=== PATIENT | female | born 1975 | race Caucasian/White ===

== ENCOUNTER 2017-12-18 20:25 | Emergency (ER) | payer MEDICARE, MEDICAID, SELFPAY ==
[2017-12-18 20:28] VITALS: BP 130/94; PULSE 104; RESP 18; TEMP 37.2; O2SAT 100; BMI 41.6
--- NOTE | 2017-12-18 20:33 | ED_ITS ---
HPI - Recheck/Abnormal Lab/Rx <Jailene William PA-C - Last Filed: 12/18/17 22:03> General Chief Complaint: Recheck/Abnormal Lab/Rx Stated Complaint: OUT OF MEDICATION Time Seen by Provider: 12/18/17 20:33 Source: patient Mode of arrival: ambulatory Limitations: no limitations History of Present Illness HPI narrative: This 42-year-old female is currently being treated for bipolar/ schizoaffective disorder by Psychiatry. She states that she was not able to get her last refills of lamotrigine due to her insurance saying it was too early are not covering. She states that she is due for a dose tonight and is out. Very concerned because she missed a dose of a different anticonvulsant type mood stabilizer previously and had a seizure. She is not out of any other medications. She states that she is feeling a little bit anxious about this but otherwise denies any acute symptoms this evening. She denies any changes in her medical history since last seen Related Data Previous Rx's Medication Instructions Recorded lorazepam [Ativan] 0.5 mg PO SEE INSTRUCTIONS #90 tab 09/03/17 ziprasidone HCl [Geodon] 20 mg PO HS #30 cap 10/19/17 ziprasidone HCl [Geodon] 60 mg PO QAM #30 tab 11/05/17 ziprasidone HCl [Geodon] 80 mg PO HS #30 cap 11/05/17 lamotrigine [Lamictal] 350 mg PO QDAY #105 tab 11/09/17 venlafaxine [Effexor XR] 75 mg PO QDAY #30 cap 11/09/17 venlafaxine [Effexor XR] 300 mg PO QDAY #60 cap 11/09/17 lorazepam [Ativan] 0.5 mg PO QID #120 tab 11/10/17 fluconazole 150 mg tablet 150 mg PO .ONCE 1 Days #1 tab 11/29/17 lamotrigine 350 mg PO DAILY #18 tab 12/18/17 Allergies Allergy/AdvReac Type Severity Reaction Status Date / Time codeine Allergy Intermediate HIVES Verified 12/18/17 20:33 penicillin G Allergy Intermediate NAUSEA Verified 12/18/17 20:33 rifampin [RIFAMPIN] Allergy Unknown Verified 12/18/17 20:33 Sulfa (Sulfonamide Allergy Unknown Verified 12/18/17 20:33 Antibiotics) [SULFA (SULFONAMIDE ANTIBIOTICS)] Opioids - Morphine Analogues AdvReac Intermediate CAN'T SLEEP Verified 12/18/17 20:33 Review of Systems <Jailene William PA-C - Last Filed: 12/18/17 22:03> Review of Systems All systems reviewed & are unremarkable except as noted in HPI and below Exam <Jailene William PA-C - Last Filed: 12/18/17 22:03> Narrative Exam Narrative: GENERAL APPEARANCE: Patient sitting comfortably, in no distress. LUNGS: Clear to auscultation bilaterally. HEART: Rate and rhythm regular without murmur, normal S1 and S2, no S3 or S4. Initial Vital Signs Initial Vital Signs: Vital Signs Temperature 99.0 F 12/18/17 20:28 Pulse Rate 104 H 12/18/17 20:28 Respiratory Rate 18 12/18/17 20:28 Blood Pressure 130/94 H 12/18/17 20:28 Pulse Oximetry 100 12/18/17 20:28 <DO Cuco Ruvalcaba Last Filed: 12/19/17 05:02> Initial Vital Signs Initial Vital Signs: Vital Signs Temperature 99.0 F 12/18/17 20:28 Pulse Rate 104 H 12/18/17 20:28 Respiratory Rate 18 12/18/17 20:28 Blood Pressure 130/94 H 12/18/17 20:28 Pulse Oximetry 100 12/18/17 20:28 Course <AZUL Tan Last Filed: 12/18/17 22:03> Orders Ordered: Discontinued Medications Lamotrigine (Lamictal) 350 mg PO NOW ONE Stop: 12/18/17 20:57 Last Admin: 12/18/17 21:10 Dose: 350 mg Vital Signs - 8 hr 12/18/17 21:26 Temperature 98.9 F Pulse Rate 90 Respiratory Rate 16 Blood Pressure 123/93 H Pulse Oximetry 99 <DO Cuco Ruvalcaba Last Filed: 12/19/17 05:02> Orders Ordered: Discontinued Medications Lamotrigine (Lamictal) 350 mg PO NOW ONE Stop: 12/18/17 20:57 Last Admin: 12/18/17 21:10 Dose: 350 mg Vital Signs - 8 hr 12/18/17 21:26 Temperature 98.9 F Pulse Rate 90 Respiratory Rate 16 Blood Pressure 123/93 H Pulse Oximetry 99 Discharge Plan Departure Patient Disposition: Home, Self-Care Clinical Impression: Medication management, Bipolar 1 disorder Discharge Date/Time: 12/18/17 21:27 Interventions: ED Discharge Assessment Last Done: 12/18/17 21:26 Activity Restrictions/Additional Instructions: I have sent in a 5 day supply of your lamotrigine to [facility] for you to last picker tomorrow. You may want to contact Dr. Thurston's office and talk to the adult basic education manager provider about whether you should get a 1 month supply instead. Prescriptions: New lamotrigine 100 mg tablet 350 mg PO DAILY Qty: 18 RF: 0 No Action lorazepam [Ativan] 0.5 MG tablet 0.5 mg PO SEE INSTRUCTIONS Qty: 90 RF: 1 ziprasidone HCl [Geodon] 20 MG capsule 20 mg PO HS Qty: 30 RF: 2 ziprasidone HCl [Geodon] 80 MG capsule 80 mg PO HS Qty: 30 RF: 1 ziprasidone HCl [Geodon] 60 MG capsule 60 mg PO QAM Qty: 30 RF: 5 venlafaxine [Effexor XR] 75 MG capsule,extended release 24hr 75 mg PO QDAY Qty: 30 RF: 5 venlafaxine [Effexor XR] 150 MG capsule,extended release 24hr 300 mg PO QDAY Qty: 60 RF: 5 lamotrigine [Lamictal] 100 MG tablet 350 mg PO QDAY Qty: 105 RF: 5 lorazepam [Ativan] 0.5 MG tablet 0.5 mg PO QID Qty: 120 RF: 0 fluconazole [Diflucan] 150 mg tablet 150 mg PO .ONCE 1 Days Qty: 1 RF: 0 Referrals: Elizabeth Jones MD [Primary Care Provider] - Ayo Thurston DO [Physician] - <Kyle Garcia DO - Last Filed: 12/19/17 05:02> Cosign ED Attending Cosignature Attestation: I was immediately available in the department for consultation. Documentation has been reviewed. I agree with assessment and plan.
--- NOTE | 2017-12-18 21:04 | PC.NURSE ---
Patient here because he ran out of his lamictal, has had a hx of one siezure.
[2017-12-18] MEDS: lamoTRIgine 100 MG TABLET 350 MG PO (21:10)
[2017-12-18 21:26] VITALS: BP 123/93; PULSE 90; RESP 16; TEMP 37.2; O2SAT 99
== END 2017-12-18 21:27 | disposition home or self-care (01) ==
PROVIDERS: Emergency Provider Internal Medicine; PCP Family Medicine
DX: F31.9 Bipolar disorder, unspecified (principal); Z79.899 Other long term (current) drug therapy
CPT/HCPCS: 99282; 99283

== ENCOUNTER → 2018-03-02 06:43 | Outpatient (CLI) | payer MEDICARE, MEDICAID, SELFPAY ==
[2018-03-02 09:52] LABS: Add Manual Diff / Slide Review NO; Basophils Percent Auto 0.4 % (0-2); Eosinophils Percent Auto 1.9 % (2-4); Hematocrit 41.6 % (36-46); Hemoglobin 13.9 g/dL (12.0-16.0); Lymphocytes Percent Auto 30.3 % (25-40); Mean Corpuscular HGB Conc 33.5 % (30-36); Mean Corpuscular Hemoglobin 29.1 PG (26-34); Mean Corpuscular Volume 86.9 fL (80-100); Monocytes Percent Auto 6.1 % (3-14); Neutrophils Absolute Auto 5800 /uL (3000-5900); Neutrophils Percent Auto 61.3 % (50-75); Platelet Count 399 X10^3/uL (150-400); Red Blood Cell Count 4.79 X10^6/uL (4.0-5.2); Red Cell Distribution Width 14.4 % (11.6-14.8); White Blood Cell Count 9.5 X10^3/uL (4.5-11.0)
[2018-03-02 10:11] LABS: Cholesterol 192 mg/dL (140-199); Glucose 99 mg/dL (70-100); HDL Cholesterol 47 mg/dL (40-60); LDL Cholesterol Calculated 120 mg/dL (<100); Triglycerides 126 mg/dL (35-150)
[2018-03-02 10:39] LABS: Thyroid Stimulating Hormone 2.55 uIU/mL (0.47-4.68)
== END ==
PROVIDERS: PCP Family Medicine; Visit Provider Family Medicine
DX: R53.83 Other fatigue (principal); Z88.9 Allergy status to unspecified drugs, medicaments and biological substances
CPT/HCPCS: 36415; 80061; 82947; 84443; 85025

== ENCOUNTER → 2018-03-23 12:12 | Outpatient (CLI) | payer MEDICARE, MEDICAID, SELFPAY ==
[2018-03-23 13:40] LABS: Prolactin 14.4 ng/mL (3.0-18.6)
[2018-03-25 22:56] LABS: Estrogen 194.9 pg/mL
== END ==
PROVIDERS: PCP Family Medicine; Visit Provider Family Medicine
DX: N89.8 Other specified noninflammatory disorders of vagina (principal)
CPT/HCPCS: 36415; 82672; 83001; 84146

== ENCOUNTER → 2018-03-25 11:15 | Outpatient (CLI) | payer MEDICARE, MEDICAID, SELFPAY ==
--- NOTE | 2018-03-25 11:17 | DI.RAD.S_ITS ---
PROCEDURE: XR FOOT RT MIN 3V INDICATIONS: heel pain of right foot TECHNIQUE: 3 views of the foot were acquired. COMPARISON: None. FINDINGS: Bones: No fractures or dislocations. No suspicious bony lesions. Soft tissues: No tibiotalar joint effusion. Achilles tendon appears normal. IMPRESSION: Normal for age, source of current symptoms is not seen. Dictated by: Sascha Gonzalez M.D. on 03/25/2018 at 13:16 Approved by: Sascha Gonzalez M.D. on 03/25/2018 at 13:17
== END ==
PROVIDERS: PCP Family Medicine; Visit Provider Nurse Practitioner Family
DX: M79.671 Pain in right foot (principal)
CPT/HCPCS: 73630

== ENCOUNTER → 2018-04-02 09:44 | Outpatient (CLI) | payer MEDICARE, MEDICAID, SELFPAY ==
--- NOTE | 2018-04-02 | DI.MG.S_ITS ---
BILATERAL DIGITAL SCREENING MAMMOGRAM 3D/2D WITH CAD: 04/02/2018 CLINICAL: Routine screening. Family history of breast cancer. Comparison is made to exams dated: 02/10/2017 mammogram, 12/19/2014 mammogram, and 12/13/2014 mammogram - [facility]. The tissue of both breasts is heterogeneously dense. This may lower the sensitivity of mammography. Current study was also evaluated with a Computer Aided Detection (CAD) system. There is a mass in the right breast at 1 o'clock middle depth. Finding is seen only on tomography. No other significant masses, calcifications, or other findings are seen in either breast. IMPRESSION: INCOMPLETE: NEEDS ADDITIONAL IMAGING EVALUATION The mass in the right breast is indeterminate. Additional views with possible ultrasound are recommended. This exam was interpreted at Station ID: [id number]. NOTE: For mammograms, a report in lay terms will be sent to the patient. Approximately 15% of breast malignancies will not be visualized mammographically. In the management of a palpable breast mass, a negative mammogram must not discourage biopsy of a clinically suspicious lesion. Electronically Signed By: Shi hawkins/lidia:04/04/2018 08:40:54 letter sent: Additional Imaging Needed ACR BI-RADS Category 0: Incomplete 3340F
== END ==
PROVIDERS: PCP Family Medicine; Visit Provider Family Medicine
DX: Z12.31 Encounter for screening mammogram for malignant neoplasm of breast (principal); Z80.3 Family history of malignant neoplasm of breast
CPT/HCPCS: 77063; 77067

== ENCOUNTER → 2018-04-25 09:28 | Outpatient (CLI) | payer MEDICARE, MEDICAID, SELFPAY ==
--- NOTE | 2018-04-25 09:30 | DI.MG.S_ITS ---
UNILATERAL RIGHT DIGITAL DIAGNOSTIC MAMMOGRAM 3D/2D WITH ADDITIONAL VIEWS: 04/25/2018 CLINICAL: Additional evaluation requested from prior study. Comparison is made to exams dated: 04/02/2018 mammogram - [facility], 02/18/2017 mammogram, and 02/10/2017 mammogram - [facility]. The tissue of right breast is heterogeneously dense. This may lower the sensitivity of mammography. There is a mass in the right breast at 1 o'clock middle depth. Finding is seen only on tomography. This is seen in additional views. No other significant masses or calcifications are seen in the breast. IMPRESSION: INCOMPLETE: NEEDS ADDITIONAL IMAGING EVALUATION The mass in the right breast is indeterminate. An ultrasound is recommended. This exam was interpreted at Station ID: [id number]. NOTE: For mammograms, a report in lay terms will be sent to the patient. Approximately 15% of breast malignancies will not be visualized mammographically. In the management of a palpable breast mass, a negative mammogram must not discourage biopsy of a clinically suspicious lesion. Electronically Signed By: Shi hawkins/lidia:04/25/2018 09:53:22 letter sent: Additional Imaging Needed ACR BI-RADS Category 0: Incomplete 3340F
--- NOTE | 2018-04-25 09:30 | DI.US.S_ITS ---
ULTRASOUND OF RIGHT BREAST: 04/25/2018 CLINICAL: Follow up from addtional views. Comparison is made to exams dated: 04/25/2018 mammogram, 04/02/2018 mammogram - [facility], and 02/18/2017 ultrasound - [facility]. Color flow ultrasound of the right breast was performed on the areas of interest. Melton scale images of the real-time examination were reviewed. There is a 0.5 cm x 0.3 cm x 0.4 cm reniform mass in the right breast at 1 o'clock middle depth. This mass is hypoechoic. This correlates with mammography findings. IMPRESSION: BENIGN There is no sonographic evidence of malignancy. The 0.5 cm x 0.3 cm x 0.4 cm reniform mass in the right breast most likely is a lymph node and is benign. A 1 year screening mammogram is recommended.(04/26/2019) This exam was interpreted at Station ID: [id number]. Electronically Signed By: Shi Malcolm M.D. lk/:04/25/2018 11:58:26 letter sent: Normal Exam Ultrasound BI-RADS: 2 Benign
== END ==
PROVIDERS: PCP Family Medicine; Visit Provider Family Medicine
DX: R92.8 Other abnormal and inconclusive findings on diagnostic imaging of breast (principal); N63.12 Unspecified lump in the right breast, upper inner quadrant
CPT/HCPCS: 76642; 77065; G0279

== ENCOUNTER → 2018-05-27 12:46 | Outpatient (CLI) | payer MEDICARE, MEDICAID, SELFPAY ==
[2018-05-31 15:30] LABS: Fecal Immunochemical Test NOT DETECTED
== END ==
PROVIDERS: PCP Family Medicine; Visit Provider Family Medicine
DX: K92.1 Melena (principal)
CPT/HCPCS: 82274

== ENCOUNTER → 2018-07-12 10:59 | Outpatient (CLI) | payer MEDICARE, MEDICAID, SELFPAY ==
[2018-07-12 11:14] LABS: Appearance Urine UA CLEAR; Bilirubin Urine UA NEGATIVE (NEGATIVE); Color Urine UA YELLOW; Glucose Urine UA NEGATIVE (Normal); Ketones Urine UA NEGATIVE (NEGATIVE); Leukocyte Esterase Urine UA TRACE (NEGATIVE); Nitrite Urine UA NEGATIVE (Negative); Occult Blood Urine UA 2+ (Negative); Protein Urine UA NEGATIVE (Negative); Specific Gravity Urine UA 1.025 (1.000-1.035); Urobilinogen Urine UA 0.2 E.U./dL (0.2)
[2018-07-12 12:00] LABS: Bacteria Urine Few (2-10); Culture Indicated Urine Cult Not Indicated; RBC Urine 1-5/HPF (0-5/HPF); Squamous Epithelial Cell Urine 5-10 /HPF; WBC Urine 5-10/HPF (0-5/HPF)
== END ==
PROVIDERS: PCP Family Medicine; Visit Provider Family Medicine
DX: R30.0 Dysuria (principal)
CPT/HCPCS: 81001

== ENCOUNTER 2018-07-12 14:15 | Emergency (ER) | payer MEDICARE, MEDICAID, SELFPAY ==
[2018-07-12 14:22] VITALS: BP 141/100; PULSE 93; RESP 17; TEMP 36.7; O2SAT 100; BMI 40.7
[2018-07-12 16:04] VITALS: BP 139/95; PULSE 86; RESP 14; O2SAT 100
--- NOTE | 2018-07-12 16:49 | ED_ITS ---
HPI - Back Pain/Injury General Chief Complaint: Back Pain/Injury Stated Complaint: UTI BACK PAIN AND ABD PAIN Time Seen by Provider: 07/12/18 16:11 Source: patient Mode of arrival: ambulatory Limitations: no limitations History of Present Illness HPI Narrative: Patient is a 43-year-old female with history of bipolar presenting with back pain. She has actually seen evaluated by PCP today diagnosed with UTI. She has had painful frequent urination. Ongoing for last 2 days. She got a prescription for Macrobid but she has not yet started or taking it. The nurse told her to wait a couple of days. She then started getting back pain and got scared and had anxiety she immediately came to the emergency department. She has now been here for 2 hr she has calmed down a sexually does not have pain in her flank. She does complain of frequent mood swings she is on high doses of antipsychotics and mood stabilizers for her bipolar disorder. She has appointment with Dr. Thurston tomorrow. MD Complaint: back pain Duration: now resolved Related Data Home Medications Medication Instructions Recorded Confirmed lamotrigine [Lamictal] 350 mg PO DAILY 07/12/18 07/12/18 venlafaxine [Effexor XR] 300 mg PO DAILY 07/12/18 07/12/18 ziprasidone HCl [Geodon] 80 mg PO BEDTIME 07/12/18 07/12/18 Previous Rx's Medication Instructions Recorded lorazepam 0.5 mg tablet 0.5 mg PO QID PRN 30 Days #120 tab 04/15/18 venlafaxine ER 75 mg 75 mg PO QDAY #30 cap 04/15/18 capsule,extended release 24 hr ziprasidone 60 mg capsule 60 mg PO QAM #30 tab 04/15/18 levomefolate calcium 15 mg tablet 15 mg PO DAILY #90 tab 06/14/18 nitrofurantoin 100 mg PO BID #10 cap 07/12/18 monohydrate/macrocrystals 100 mg capsule phenazopyridine 200 mg tablet 200 mg PO TID 0 Days #6 tab 07/12/18 Allergies Allergy/AdvReac Type Severity Reaction Status Date / Time codeine Allergy Intermediate HIVES Verified 07/12/18 14:22 grass pollen-perennial rye, Allergy Intermediate unable to Verified 07/12/18 14: 22 standar breath properly penicillin G Allergy Intermediate NAUSEA Verified 07/12/18 14:22 rifampin [RIFAMPIN] Allergy Unknown Verified 07/12/18 14:22 Sulfa (Sulfonamide Allergy Unknown Verified 07/12/18 14:22 Antibiotics) [SULFA (SULFONAMIDE ANTIBIOTICS)] Opioids - Morphine Analogues AdvReac Intermediate CAN'T SLEEP Verified 07/12/18 14:22 Review of Systems Review of Systems GENERAL: Denies chills, fatigue, malaise, fever, sweats, travel HEENT: Denies sinus pain, ear pain, sore throat, difficulty swallowing, neck pain RESPIRATORY: Denies dyspnea, cough, wheezing, hemoptysis, sputum. CARDIOVASCULAR: Denies chest pain, palpitations, orthopnea, edema GASTROINTESTINAL: Denies nausea, vomiting, abdominal pain, diarrhea, constipation, melena. : See HPI MUSCULOSKELETAL: Denies weakness, joint pain, or bony pain SKIN: No rash, no erythema, no pruritus NEUROLOGIC: Denies weakness, dizziness, headache, numbness, change in speech, confusion PSYCHIATRIC: No concerning psychosocial issues. 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) History of heavy periods (Chronic 2016) IBS (irritable bowel syndrome) (Chronic 1998) Irregular periods/menstrual cycles (Chronic 2016) Schizoaffective disorder (Chronic 1998) Abnormal Pap smear of cervix (Resolved 2009) Chicken pox (Resolved 1984) History of recurrent ear infection (Resolved 1999) History of suicide attempt (Resolved) Surgical History Anesthesia (Resolved) Status post cholecystectomy (Resolved 2009) Family History Brother Age: 37 Mental health problem Mother Age: 75 Breast cancer Father Colon cancer Grandfather Bone cancer Grandmother Emphysema of lung Grandfather No problems noted. Grandmother No problems noted. 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 seatbelt use: always helmet use: Yes water heater temp set < 120 deg: Yes working smoke detector in home: Yes fire extinguisher in home: No carbon monox detector in home: Yes firearms in home: No Smoking Status: Former smoker second hand exposure: No alcohol intake: never substance use type: does not use during the past year weight has: decreased > 10 lbs well-balanced diet: daily or most days daily servings fruits/ve-4 caffeine: Yes eating out: rarely or never Type(s) of exercise: walking frequency: 5-6 times per week duration: 15-30 minutes/day additional social history: single Exam Initial Vital Signs Initial Vital Signs: Vital Signs Temperature 98.0 F 07/12/18 14:22 Pulse Rate 93 H 07/12/18 14:22 Respiratory Rate 17 07/12/18 14:22 Blood Pressure 141/100 H 07/12/18 14:22 Pulse Oximetry 100 07/12/18 14:22 GENERAL: Well-appearing, well-nourished and in no acute distress. HEENT: Head atraumatic,EOMI, pupils reactive, CARDIOVASCULAR: Regular rate and rhythm without murmurs, rubs or gallops. RESPIRATORY: Breath sounds equal bilaterally, no wheezes rales or rhonchi. ABDOMEN: Soft, nontender. Normoactive bowel sounds all 4 quadrants. No guarding or rebound. : No CVA tenderness EXTREMITIES: Normal range of motion, no clubbing or edema. Neurovascularly intact NEUROLOGICAL: Alert and oriented x4.Normal gait and speech. SKIN: Warm, dry, no laceration, no petechiae, no rashes or lesions. Course Vital Signs - 8 hr 07/12/18 14:22 07/12/18 16:04 07/12/18 17:20 Temperature 98.0 F Pulse Rate 93 H 86 82 Respiratory Rate 17 14 17 Blood Pressure 141/100 H 138/75 Blood Pressure [Left Wrist] 139/95 H Pulse Oximetry 100 100 98 Discharge Plan Departure Patient Disposition: Home Clinical Impression: UTI (urinary tract infection) Discharge Date/Time: 07/12/18 17:00 Interventions: ED Discharge Assessment Last Done: 07/12/18 17:20 Instructions: DI for Urinary Tract Infection (UTI) Activity Restrictions/Additional Instructions: *You have been diagnosed with UTI *What to do: Increase fluid *Continue to take medications as directed -start taking antibiotic as previously prescribed *Follow up with your primary care provider in 2-3 days *Return to ER if you should have back pain, fever or any new, worsening or concerning symptoms Prescriptions: No Action lorazepam [Ativan] 0.5 mg tablet 0.5 mg PO QID PRN (Reason: anxiety) 30 Days Qty: 120 RF: 2 venlafaxine [Effexor XR] 75 mg capsule,extended release 24hr 75 mg PO QDAY Qty: 30 RF: 5 ziprasidone HCl [Geodon] 60 mg capsule 60 mg PO QAM Qty: 30 RF: 5 levomefolate calcium [L-Methylfolate] 15 mg tablet 15 mg PO DAILY Qty: 90 RF: 3 nitrofurantoin monohyd/m-cryst 100 mg capsule 100 mg PO BID Qty: 10 RF: 0 phenazopyridine 200 mg tablet 200 mg PO TID 0 Days Qty: 6 RF: 0 ziprasidone HCl [Geodon] 80 mg capsule 80 mg PO BEDTIME RF: 0 venlafaxine [Effexor XR] 150 mg capsule,extended release 24hr 300 mg PO DAILY RF: 0 lamotrigine [Lamictal] 100 mg tablet 350 mg PO DAILY RF: 0 Referrals: Elizabeth Jones MD [Primary Care Provider] - Ayo Thurston DO [Physician] -
[2018-07-12 17:20] VITALS: BP 138/75; PULSE 82; RESP 17; O2SAT 98
== END 2018-07-12 17:00 | disposition home or self-care (01) ==
PROVIDERS: Emergency Provider Emergency Medicine; PCP Family Medicine
DX: N39.0 Urinary tract infection, site not specified (principal)
CPT/HCPCS: 81001; 99282; 99283

== ENCOUNTER 2018-09-15 10:30 | Outpatient (RCR) | payer MEDICARE, MEDICAID, SELFPAY ==
--- NOTE | 2018-06-01 12:40 | PT.OIE ---
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) Abnormal posture (06/01/18) Past Medical History (Last Reviewed 03/25/18 @ 13:33 by Geetha Coley DNP, ANP, [employer]-C) Ankle pain (Chronic 2014) Anxiety (Chronic 1998) Bipolar 1 disorder (Chronic 1998) Chronic back pain (Chronic 1999) Foot pain (Chronic 2014) HPV (human papilloma virus) infection (Chronic 2009) High-functioning autism spectrum disorder (Chronic) History of heavy periods (Chronic 2016) IBS (irritable bowel syndrome) (Chronic 1998) Irregular periods/menstrual cycles (Chronic 2016) Schizoaffective disorder (Chronic 1998) Abnormal Pap smear of cervix (Resolved 2009) Chicken pox (Resolved 1984) History of recurrent ear infection (Resolved 1999) History of suicide attempt (Resolved) Past Surgical History (Last Reviewed 03/25/18 @ 13:33 by Geetha Coley DNP, ANP, [employer]-C) Anesthesia (Resolved) Status post cholecystectomy (Resolved 2009) Provider Visit Care Team Role Provider Type Elizabeth Jones MD Attending Provider Physician Primary Care Provider Specialty: Family Practice Address: [address] [place] [address] Email: [email or web address] Physical Therapy Initial Evaluation PT-OP-A Visit Information Start: 06/01/18 14:37 Freq: Status: Active Protocol: Document 06/01/18 12:40 [facility] (Rec: 06/01/18 15:13 [facility] [email or web address]) Out-Patient Physical Therapy Visit Information Visit Information Visit Type Initial Evaluation Visit Note G-codes @ 10 Visit Start Time 12:00 Visit Stop Time 12:40 Total Visit Minutes 40 Visit Number 1 Number of CO FOUNDER & CEO Visits 0 Evaluation Information Evaluation Date 06/01/18 PT-OP-B Current Condition Start: 06/01/18 14:37 Freq: Status: Active Protocol: Document 06/01/18 12:40 [facility] (Rec: 06/01/18 15:13 [facility] [email or web address]) Current Condition History of Current Condition Onset Date 1 year ago Current Complaints B heel pain, neck pain, deconditioning History of Current Condition Pt is a 43 y/o female presenting to physical therapy with bilateral heel and foot pain, deconditioning, neck pain and pain all over body. She states that pain has actually been decreasing in the bilateral feet since she obtained OTC orthotics for her feet. She also quit jogging which seemed to help decrease pain as well. Pt states she has put on weight due to not being able to walk and jog outside over the past few months (she quit ~2 months ago due to pain in feet). She is motivated to get back to jogging and exercise to decrease overall pain and lose weight. Pain is exacerbated by jogging and walking, decreased with rest and her orthotics. She takes Aleve occasionally for pain control. Her prior level of activity before quitting her jogging and walking program was: 4 days per week, for 30 min, doing a jog/walk combo. Treatment Goals Patient/Caregiver Goals get established HEP, get back to jogging and walking for exercise. Prior Functional Status Baseline Function- Gait no issues, community ambulator without device; able to jog Baseline Function- Recreation/Hobbies walk and jogging outdoors Current Functional Impairments (Reported) Functional Limitations- Mobility/Gait increased pain with walking Functional Limitations- Recreation/ unable to jog or walk for Hobbies exercise. Personal Factors Other Personal Factors That May Effect Bipolar disorder, OA- multiple Therapy/Recovery regions per pt. PT-OP-C Subjective Start: 06/01/18 14:37 Freq: Status: Active Protocol: Document 06/01/18 12:40 [facility] (Rec: 06/01/18 15:13 [facility] [email or web address]) OP-PT Subjective Patient Comments Patient Comments pt wants to get back to jogging again, symptoms are improving but not jogging yet. Patient Reported Progress Improving Patient Questionnaires Lower Extremity Functional Scale LEFS Score 44 LEFS Impairment 40 to 59% Impaired (Score 32- 47) OP-PT Pain Assessment Location B heel/foot Intensity 2 Scale Used Numeric (1 - 10) Pain Aggravating Factors Activity Walking PT-OP-F Manual Assessment Start: 06/01/18 14:37 Freq: Status: Active Protocol: Document 06/01/18 12:40 [facility] (Rec: 06/01/18 15:13 [facility] [email or web address]) Manual Assessments Soft Tissue Assessment Soft Tissue Mobility Assessment Increased tension: bilateral plantar fascia (L>R) PT-OP-G Mobility & Gait Start: 06/01/18 14:37 Freq: Status: Active Protocol: Document 06/01/18 12:40 [facility] (Rec: 06/01/18 15:13 [facility] [email or web address]) OP Gait Assessment Comments Gait Comments knee hyperextension in stance phase B, decreased push-off B PT-OP-J Posture/Palpation/Skin Start: 06/01/18 15:13 Freq: Status: Active Protocol: Document 06/01/18 12:40 [facility] (Rec: 06/01/18 15:14 [facility] [email or web address]) Posture Evaluation Comments Posture Comments B knee hyperextension, increased genu valgus with squatting. PT-OP-K Range of Motion Start: 06/01/18 14:37 Freq: Status: Active Protocol: Document 06/01/18 12:40 [facility] (Rec: 06/01/18 15:13 [facility] [email or web address]) Ankle and Foot Goniometric Range of Motion Ankle and Foot Measured in Degrees Right Active Testing Position Supine Dorsiflexion with Knee Flexed 20 Dorsiflexion with Knee Extended 11 Plantarflexion 60 Left Active Testing Position Supine Dorsiflexion with Knee Flexed 19 Dorsiflexion with Knee Extended 9 Plantarflexion 60 PT-OP-L Special Tests Start: 06/01/18 14:37 Freq: Status: Active Protocol: Document 06/01/18 12:40 [facility] (Rec: 06/01/18 15:13 [facility] [email or web address]) Special Tests Foot/Ankle Special Tests Windlass test Test Results positive B Wilkinson Test Results negative B PT-OP-M Strength Start: 06/01/18 14:37 Freq: Status: Active Protocol: Document 06/01/18 12:40 [facility] (Rec: 06/01/18 15:13 [facility] [email or web address]) Hip Strength Hip Manual Muscle Testing Right Flexion (L2) 5 Normal Abduction 4 Good Adduction 5 Normal External Rotation 4 Good Internal Rotation 4+ Good+ Left Flexion (L2) 5 Normal Abduction 4- Good- Adduction 5 Normal External Rotation 4 Good Internal Rotation 4+ Good+ Knee Strength Knee Manual Muscle Testing Right Flexion (S2) 4+ Good+ Extension (L3) 5 Normal Left Flexion (S2) 4+ Good+ Extension (L3) 5 Normal Ankle/Foot Strength Ankle and Foot Manual Muscle Testing Right Dorsiflexion (L4) 5 Normal Comments SL heel raise: 8 reps Left Dorsiflexion (L4) 5 Normal Comments SL heel raise: 7 reps PT-OP-Q Treatments Start: 06/01/18 14:37 Freq: Status: Active Protocol: Document 06/01/18 12:40 [facility] (Rec: 06/01/18 15:13 [facility] [email or web address]) Gym Equipment Shuttle Recovery Bilateral Squats Resistance 75 lbs Shuttle Recovery Platform Stable Reps/Time 1x15 Therapeutic Exercises Standing Exercises heel raise Standing Exercise Name heel raise Side bilateral Reps/Minutes 2x15 heel cord stretch Standing Exercise Name gastroc and soleus stretch Side bilateral Reps/Minutes 1x30 sec each lateral walking Standing Exercise Name resisted lateral walk Side bilateral Resistance L2 Reps/Minutes 2 laps PT-OP-T Assessment and Plan Start: 06/01/18 14:37 Freq: Status: Active Protocol: Document 06/01/18 12:40 [facility] (Rec: 06/01/18 15:13 [facility] [email or web address]) Physical Therapy Assessment Rehab Potential Rehabilitation Potential Good Evaluation Complexity Number of Personal Factors/Comorbidities 1-2 Number of Body Systems Impaired 3 Clinical Presentation at Evaluation Stable Impairments Impairments Functional Activities Gait Pain Posture Soft Tissue Mobility Strength Goals LE weakness Impairment LE weakness Short Term Goal (STG) 4+/5 with MMT to improve tolerance to gait and functional mobility. STG Duration 4 weeks Assisted Goal (LTG) 5/5 with MMT to improve tolerance to gait and functional mobility. LTG Duration 8 weeks pain Impairment 2/10 pain in bilateral feet Assisted Goal (LTG) pt to return to jogging and walking program, 4x/wk for 30 min without c/o pain prior to d/c. LTG Duration 8 weeks Lower Extremity Functional Scale Impairment 44 (55%) LEFS Short Term Goal (STG) 50/80 or greater to demonstrate improvements with functional activities in relation to pain of the bilateral feet. STG Duration 4 weeks Assisted Goal (LTG) 60/80 or greater to demonstrate improvements with functional activities in relation to pain of the bilateral feet. LTG Duration 8 weeks Assessment Summary Assessment Pt presents with (+) Windlass testing bilaterally as well as tension and tenderness along the plantar fascia, but appears to be improving per pt report with general mobility after obtaining over-the- counter orthotics. Pt is not yet back to jogging for exercise, which she was able to do up to about 2 months ago (she stopped due to pain). Pt would greatly benefit from physical therapy to progress her strength, gait tolerance, and returning to jogging safely under direction and progression of a home exercise plan. Pt is a good candidate for skilled physical therapy. Pt may benefit from aquatic therapy during this episode of care for progression of plyometric training and return to running/jogging as well. Physical Therapy Plan Frequency and Duration Frequency of Treatment 2x/Week Duration of Treatment 8 weeks Plan of Care Start Date 06/01/18 Plan of Care End Date 07/27/18 Therapeutic Interventions Therapeutic Interventions Aquatic Therapy Gait Training Home Exercise Program Manual Therapy Neuromuscular Re-education Orthotic/Prosthetic Management Patient/Caregiver Education Self-Care/Home Management Soft Tissue Mobilization Taping Therapeutic Activities Therapeutic Exercises Modalities Cold Pack/Ice Massage Hot Packs Ultrasound Next Visit Focus/Plan Next Note Type Treatment Note Next Visit Plan clamshells (reverse and regular), issue band for lateral walks, toe scrunches, squats with emphasis on body mechanics, assess jogging when able.
--- NOTE | 2018-06-07 16:20 | PT.OTN ---
Current Diagnoses Plantar fascial fibromatosis (06/07/18) Physical Therapy Treatment Note PT-OP-A Visit Information Start: 06/01/18 14:37 Freq: Status: Active Protocol: Document 06/07/18 12:00 GGD (Rec: 06/07/18 16:20 GGD [email or web address]) Out-Patient Physical Therapy Visit Information Visit Information Visit Type Treatment Note Visit Note G-codes @ 10 Visit Start Time 12:00 Visit Stop Time 12:40 Total Visit Minutes 40 Visit Number 2 Number of SPINNER OPEN END Visits 1 Evaluation Information Evaluation Date 06/01/18 PT-OP-B Current Condition Start: 06/01/18 14:37 Freq: Status: Active Protocol: Document 06/01/18 12:40 RCC (Rec: 06/01/18 15:13 RCC [email or web address]) Current Condition History of Current Condition Onset Date 1 year ago Current Complaints B heel pain, neck pain, deconditioning History of Current Condition Pt is a 43 y/o female presenting to physical therapy with bilateral heel and foot pain, deconditioning, neck pain and pain all over body. She states that pain has actually been decreasing in the bilateral feet since she obtained OTC orthotics for her feet. She also quit jogging which seemed to help decrease pain as well. Pt states she has put on weight due to not being able to walk and jog outside over the past few months (she quit ~2 months ago due to pain in feet). She is motivated to get back to jogging and exercise to decrease overall pain and lose weight. Pain is exacerbated by jogging and walking, decreased with rest and her orthotics. She takes Aleve occasionally for pain control. Her prior level of activity before quitting her jogging and walking program was: 4 days per week, for 30 min, doing a jog/walk combo. Treatment Goals Patient/Caregiver Goals get established HEP, get back to jogging and walking for exercise. Prior Functional Status Baseline Function- Gait no issues, community ambulator without device; able to jog Baseline Function- Recreation/Hobbies walk and jogging outdoors Current Functional Impairments (Reported) Functional Limitations- Mobility/Gait increased pain with walking Functional Limitations- Recreation/ unable to jog or walk for Hobbies exercise. Personal Factors Other Personal Factors That May Effect Bipolar disorder, OA- multiple Therapy/Recovery regions per pt. PT-OP-C Subjective Start: 06/01/18 14:37 Freq: Status: Active Protocol: Document 06/07/18 12:00 GGD (Rec: 06/07/18 16:20 GGD [email or web address]) OP-PT Subjective Patient Comments Patient Comments Pt states she had less pain after taking turmeric daily. PT-OP-F Manual Assessment Start: 06/01/18 14:37 Freq: Status: Active Protocol: Document 06/01/18 12:40 RCC (Rec: 06/01/18 15:13 RCC [email or web address]) Manual Assessments Soft Tissue Assessment Soft Tissue Mobility Assessment Increased tension: bilateral plantar fascia (L>R) PT-OP-G Mobility & Gait Start: 06/01/18 14:37 Freq: Status: Active Protocol: Document 06/01/18 12:40 RCC (Rec: 06/01/18 15:13 RCC [email or web address]) OP Gait Assessment Comments Gait Comments knee hyperextension in stance phase B, decreased push-off B PT-OP-J Posture/Palpation/Skin Start: 06/01/18 15:13 Freq: Status: Active Protocol: Document 06/01/18 12:40 RCC (Rec: 06/01/18 15:14 RCC [email or web address]) Posture Evaluation Comments Posture Comments B knee hyperextension, increased genu valgus with squatting. PT-OP-K Range of Motion Start: 06/01/18 14:37 Freq: Status: Active Protocol: Document 06/01/18 12:40 RCC (Rec: 06/01/18 15:13 RCC [email or web address]) Ankle and Foot Goniometric Range of Motion Ankle and Foot Measured in Degrees Right Active Testing Position Supine Dorsiflexion with Knee Flexed 20 Dorsiflexion with Knee Extended 11 Plantarflexion 60 Left Active Testing Position Supine Dorsiflexion with Knee Flexed 19 Dorsiflexion with Knee Extended 9 Plantarflexion 60 PT-OP-L Special Tests Start: 06/01/18 14:37 Freq: Status: Active Protocol: Document 06/01/18 12:40 RCC (Rec: 06/01/18 15:13 RCC [email or web address]) Special Tests Foot/Ankle Special Tests Windlass test Test Results positive B Wilkinson Test Results negative B PT-OP-M Strength Start: 06/01/18 14:37 Freq: Status: Active Protocol: Document 06/01/18 12:40 RCC (Rec: 06/01/18 15:13 RCC [email or web address]) Hip Strength Hip Manual Muscle Testing Right Flexion (L2) 5 Normal Abduction 4 Good Adduction 5 Normal External Rotation 4 Good Internal Rotation 4+ Good+ Left Flexion (L2) 5 Normal Abduction 4- Good- Adduction 5 Normal External Rotation 4 Good Internal Rotation 4+ Good+ Knee Strength Knee Manual Muscle Testing Right Flexion (S2) 4+ Good+ Extension (L3) 5 Normal Left Flexion (S2) 4+ Good+ Extension (L3) 5 Normal Ankle/Foot Strength Ankle and Foot Manual Muscle Testing Right Dorsiflexion (L4) 5 Normal Comments SL heel raise: 8 reps Left Dorsiflexion (L4) 5 Normal Comments SL heel raise: 7 reps PT-OP-Q Treatments Start: 06/01/18 14:37 Freq: Status: Active Protocol: Document 06/07/18 12:00 GGD (Rec: 06/07/18 16:20 GGD [email or web address]) Cardio Equipment Recumbent Bicycle Duration (Minutes) 8 Resistance 4 Gym Equipment Shuttle Recovery Bilateral Squats Resistance 75 lbs Shuttle Recovery Platform Stable Reps/Time 2x15 Therapeutic Exercises Sidelying Exercises 2 Sidelying Exercise Name reverse clamshells Reps/Minutes 15 1 Sidelying Exercise Name Clamshells Reps/Minutes 15 Sitting Exercises 1 Sitting Exercise Name towel scrunches Reps/Minutes 4 Standing Exercises 1 Standing Exercise Name squats Reps/Minutes 10 Comments v. cues. heel raise Standing Exercise Name heel raise Side bilateral Reps/Minutes 2x15 heel cord stretch Standing Exercise Name gastroc and soleus stretch Side bilateral Reps/Minutes 1x30 sec each lateral walking Standing Exercise Name resisted lateral walk Side bilateral Resistance L2 Reps/Minutes 2 laps PT-OP-T Assessment and Plan Start: 06/01/18 14:37 Freq: Status: Active Protocol: Document 06/07/18 12:00 GGD (Rec: 06/07/18 16:20 GGD [email or web address]) Physical Therapy Assessment Assessment Summary Assessment Pt need cues for exercise. she fatigues quickly and need rest breaks during treatment. HEP giving for clamshells. Physical Therapy Plan Frequency and Duration Frequency of Treatment 2x/Week Duration of Treatment 8 weeks Plan of Care Start Date 06/01/18 Plan of Care End Date 07/27/18 Next Visit Focus/Plan Next Note Type Treatment Note Next Visit Plan Progress LE strengthening and HEP.
--- NOTE | 2018-06-09 11:58 | PT.OTN ---
Current Diagnoses Plantar fascial fibromatosis (06/09/18) Physical Therapy Treatment Note PT-OP-A Visit Information Start: 06/01/18 14:37 Freq: Status: Active Protocol: Document 06/09/18 11:58 RCC (Rec: 06/09/18 13:29 RCC [email or web address]) Out-Patient Physical Therapy Visit Information Visit Information Visit Type Treatment Note Visit Note G-codes @ 10 Visit Start Time 11:17 Visit Stop Time 11:58 Total Visit Minutes 41 Visit Number 3 Number of SLAG EXPANDER Visits 0 Evaluation Information Evaluation Date 06/01/18 PT-OP-B Current Condition Start: 06/01/18 14:37 Freq: Status: Active Protocol: Document 06/01/18 12:40 RCC (Rec: 06/01/18 15:13 RCC [email or web address]) Current Condition History of Current Condition Onset Date 1 year ago Current Complaints B heel pain, neck pain, deconditioning History of Current Condition Pt is a 43 y/o female presenting to physical therapy with bilateral heel and foot pain, deconditioning, neck pain and pain all over body. She states that pain has actually been decreasing in the bilateral feet since she obtained OTC orthotics for her feet. She also quit jogging which seemed to help decrease pain as well. Pt states she has put on weight due to not being able to walk and jog outside over the past few months (she quit ~2 months ago due to pain in feet). She is motivated to get back to jogging and exercise to decrease overall pain and lose weight. Pain is exacerbated by jogging and walking, decreased with rest and her orthotics. She takes Aleve occasionally for pain control. Her prior level of activity before quitting her jogging and walking program was: 4 days per week, for 30 min, doing a jog/walk combo. Treatment Goals Patient/Caregiver Goals get established HEP, get back to jogging and walking for exercise. Prior Functional Status Baseline Function- Gait no issues, community ambulator without device; able to jog Baseline Function- Recreation/Hobbies walk and jogging outdoors Current Functional Impairments (Reported) Functional Limitations- Mobility/Gait increased pain with walking Functional Limitations- Recreation/ unable to jog or walk for Hobbies exercise. Personal Factors Other Personal Factors That May Effect Bipolar disorder, OA- multiple Therapy/Recovery regions per pt. PT-OP-C Subjective Start: 06/01/18 14:37 Freq: Status: Active Protocol: Document 06/09/18 11:58 RCC (Rec: 06/09/18 13:29 RCC [email or web address]) OP-PT Subjective Patient Comments Patient Comments Pt notes that her feet are feeling better. She had increased knee pain with squats last visit, but tolerated them well at home doing them with her back supported on the wall. PT-OP-F Manual Assessment Start: 06/01/18 14:37 Freq: Status: Active Protocol: Document 06/01/18 12:40 RCC (Rec: 06/01/18 15:13 RCC [email or web address]) Manual Assessments Soft Tissue Assessment Soft Tissue Mobility Assessment Increased tension: bilateral plantar fascia (L>R) PT-OP-G Mobility & Gait Start: 06/01/18 14:37 Freq: Status: Active Protocol: Document 06/01/18 12:40 RCC (Rec: 06/01/18 15:13 RCC [email or web address]) OP Gait Assessment Comments Gait Comments knee hyperextension in stance phase B, decreased push-off B PT-OP-J Posture/Palpation/Skin Start: 06/01/18 15:13 Freq: Status: Active Protocol: Document 06/01/18 12:40 RCC (Rec: 06/01/18 15:14 RCC [email or web address]) Posture Evaluation Comments Posture Comments B knee hyperextension, increased genu valgus with squatting. PT-OP-K Range of Motion Start: 06/01/18 14:37 Freq: Status: Active Protocol: Document 06/01/18 12:40 RCC (Rec: 06/01/18 15:13 RCC [email or web address]) Ankle and Foot Goniometric Range of Motion Ankle and Foot Measured in Degrees Right Active Testing Position Supine Dorsiflexion with Knee Flexed 20 Dorsiflexion with Knee Extended 11 Plantarflexion 60 Left Active Testing Position Supine Dorsiflexion with Knee Flexed 19 Dorsiflexion with Knee Extended 9 Plantarflexion 60 PT-OP-L Special Tests Start: 06/01/18 14:37 Freq: Status: Active Protocol: Document 06/01/18 12:40 RCC (Rec: 06/01/18 15:13 RCC [email or web address]) Special Tests Foot/Ankle Special Tests Windlass test Test Results positive B Wilkinson Test Results negative B PT-OP-M Strength Start: 06/01/18 14:37 Freq: Status: Active Protocol: Document 06/01/18 12:40 RCC (Rec: 06/01/18 15:13 RCC [email or web address]) Hip Strength Hip Manual Muscle Testing Right Flexion (L2) 5 Normal Abduction 4 Good Adduction 5 Normal External Rotation 4 Good Internal Rotation 4+ Good+ Left Flexion (L2) 5 Normal Abduction 4- Good- Adduction 5 Normal External Rotation 4 Good Internal Rotation 4+ Good+ Knee Strength Knee Manual Muscle Testing Right Flexion (S2) 4+ Good+ Extension (L3) 5 Normal Left Flexion (S2) 4+ Good+ Extension (L3) 5 Normal Ankle/Foot Strength Ankle and Foot Manual Muscle Testing Right Dorsiflexion (L4) 5 Normal Comments SL heel raise: 8 reps Left Dorsiflexion (L4) 5 Normal Comments SL heel raise: 7 reps PT-OP-Q Treatments Start: 06/01/18 14:37 Freq: Status: Active Protocol: Document 06/09/18 11:58 RCC (Rec: 06/09/18 13:29 RCC [email or web address]) Cardio Equipment Recumbent Elliptical ([employer]) Duration (Minutes) 6 Resistance 2 Gym Equipment Shuttle Recovery Unilateral Squats Resistance 25 lbs Shuttle Recovery Platform Stable Reps/Time x15 each Bilateral Squats Resistance 75 lbs Shuttle Recovery Platform Stable Reps/Time 2x15 Shuttle Balance 1 Details Red- DL normal standing with eyes open Reps/Duration 10 min Comments hand assisit initially, then able to perform without hands @ end. Therapeutic Exercises Supine Exercises SLR flexion Supine Exercise Name straight leg raise- hip flexion Side bilateral Reps/Minutes 10 each Sidelying Exercises 1 Sidelying Exercise Name Clamshells Side bilateral Reps/Minutes 15 Standing Exercises heel cord stretch Standing Exercise Name gastroc and soleus stretch Side bilateral Reps/Minutes 1x30 sec each lateral walking Standing Exercise Name resisted lateral walk Side bilateral Resistance L2 Reps/Minutes 2 laps PT-OP-T Assessment and Plan Start: 06/01/18 14:37 Freq: Status: Active Protocol: Document 06/09/18 11:58 RCC (Rec: 06/09/18 13:29 RCC [email or web address]) Physical Therapy Assessment Assessment Summary Assessment Pt with increased A/P sway when performing standing balance on Shuttle Balance board, with impaired ankle strategy bilaterally. Pt also with increased lumbosacral sway in standing on Shuttle Balance, recommend progressing core stability as tolerated. Physical Therapy Plan Frequency and Duration Frequency of Treatment 2x/Week Duration of Treatment 8 weeks Plan of Care Start Date 06/01/18 Plan of Care End Date 07/27/18 Next Visit Focus/Plan Next Note Type Treatment Note Next Visit Plan bridging, transverse abdominal activation
--- NOTE | 2018-06-14 16:08 | PT.OTN ---
Current Diagnoses Plantar fascial fibromatosis (06/14/18) Physical Therapy Treatment Note PT-OP-A Visit Information Start: 06/01/18 14:37 Freq: Status: Active Protocol: Document 06/14/18 16:01 GGD (Rec: 06/14/18 16:08 GGD [email or web address]) Out-Patient Physical Therapy Visit Information Visit Information Visit Type Treatment Note Visit Note G-codes @ 10 Visit Start Time 12:00 Visit Stop Time 12:40 Total Visit Minutes 40 Visit Number 4 Number of POURER BUGGY LADLE Visits 1 Evaluation Information Evaluation Date 06/01/18 PT-OP-B Current Condition Start: 06/01/18 14:37 Freq: Status: Active Protocol: Document 06/01/18 12:40 RCC (Rec: 06/01/18 15:13 RCC [email or web address]) Current Condition History of Current Condition Onset Date 1 year ago Current Complaints B heel pain, neck pain, deconditioning History of Current Condition Pt is a 43 y/o female presenting to physical therapy with bilateral heel and foot pain, deconditioning, neck pain and pain all over body. She states that pain has actually been decreasing in the bilateral feet since she obtained OTC orthotics for her feet. She also quit jogging which seemed to help decrease pain as well. Pt states she has put on weight due to not being able to walk and jog outside over the past few months (she quit ~2 months ago due to pain in feet). She is motivated to get back to jogging and exercise to decrease overall pain and lose weight. Pain is exacerbated by jogging and walking, decreased with rest and her orthotics. She takes Aleve occasionally for pain control. Her prior level of activity before quitting her jogging and walking program was: 4 days per week, for 30 min, doing a jog/walk combo. Treatment Goals Patient/Caregiver Goals get established HEP, get back to jogging and walking for exercise. Prior Functional Status Baseline Function- Gait no issues, community ambulator without device; able to jog Baseline Function- Recreation/Hobbies walk and jogging outdoors Current Functional Impairments (Reported) Functional Limitations- Mobility/Gait increased pain with walking Functional Limitations- Recreation/ unable to jog or walk for Hobbies exercise. Personal Factors Other Personal Factors That May Effect Bipolar disorder, OA- multiple Therapy/Recovery regions per pt. PT-OP-C Subjective Start: 06/01/18 14:37 Freq: Status: Active Protocol: Document 06/14/18 16:01 GGD (Rec: 06/14/18 16:08 GGD [email or web address]) OP-PT Subjective Patient Comments Patient Comments Pt states she been able to walk 20 min, she still reports her feet are feeling better. PT-OP-F Manual Assessment Start: 06/01/18 14:37 Freq: Status: Active Protocol: Document 06/01/18 12:40 RCC (Rec: 06/01/18 15:13 RCC [email or web address]) Manual Assessments Soft Tissue Assessment Soft Tissue Mobility Assessment Increased tension: bilateral plantar fascia (L>R) PT-OP-G Mobility & Gait Start: 06/01/18 14:37 Freq: Status: Active Protocol: Document 06/01/18 12:40 RCC (Rec: 06/01/18 15:13 RCC [email or web address]) OP Gait Assessment Comments Gait Comments knee hyperextension in stance phase B, decreased push-off B PT-OP-J Posture/Palpation/Skin Start: 06/01/18 15:13 Freq: Status: Active Protocol: Document 06/01/18 12:40 RCC (Rec: 06/01/18 15:14 RCC [email or web address]) Posture Evaluation Comments Posture Comments B knee hyperextension, increased genu valgus with squatting. PT-OP-K Range of Motion Start: 06/01/18 14:37 Freq: Status: Active Protocol: Document 06/01/18 12:40 RCC (Rec: 06/01/18 15:13 RCC [email or web address]) Ankle and Foot Goniometric Range of Motion Ankle and Foot Measured in Degrees Right Active Testing Position Supine Dorsiflexion with Knee Flexed 20 Dorsiflexion with Knee Extended 11 Plantarflexion 60 Left Active Testing Position Supine Dorsiflexion with Knee Flexed 19 Dorsiflexion with Knee Extended 9 Plantarflexion 60 PT-OP-L Special Tests Start: 06/01/18 14:37 Freq: Status: Active Protocol: Document 06/01/18 12:40 RCC (Rec: 06/01/18 15:13 RCC [email or web address]) Special Tests Foot/Ankle Special Tests Windlass test Test Results positive B Wilkinson Test Results negative B PT-OP-M Strength Start: 06/01/18 14:37 Freq: Status: Active Protocol: Document 06/01/18 12:40 RCC (Rec: 06/01/18 15:13 RCC [email or web address]) Hip Strength Hip Manual Muscle Testing Right Flexion (L2) 5 Normal Abduction 4 Good Adduction 5 Normal External Rotation 4 Good Internal Rotation 4+ Good+ Left Flexion (L2) 5 Normal Abduction 4- Good- Adduction 5 Normal External Rotation 4 Good Internal Rotation 4+ Good+ Knee Strength Knee Manual Muscle Testing Right Flexion (S2) 4+ Good+ Extension (L3) 5 Normal Left Flexion (S2) 4+ Good+ Extension (L3) 5 Normal Ankle/Foot Strength Ankle and Foot Manual Muscle Testing Right Dorsiflexion (L4) 5 Normal Comments SL heel raise: 8 reps Left Dorsiflexion (L4) 5 Normal Comments SL heel raise: 7 reps PT-OP-Q Treatments Start: 06/01/18 14:37 Freq: Status: Active Protocol: Document 06/14/18 16:01 GGD (Rec: 06/14/18 16:08 GGD [email or web address]) Cardio Equipment Recumbent Elliptical ([employer]) Duration (Minutes) 6 Resistance 2 Gym Equipment Shuttle Recovery Unilateral Squats Resistance 25 lbs Shuttle Recovery Platform Stable Reps/Time x15 each Bilateral Squats Resistance 75 lbs Shuttle Recovery Platform Stable Reps/Time 2x15 Shuttle Balance 1 Details Red- Reps/Duration 10 min Comments WBOS, NBOS eyes open and head turns. Therapeutic Exercises Supine Exercises SLR flexion Supine Exercise Name straight leg raise- hip flexion Side bilateral Reps/Minutes 10 each Sidelying Exercises 1 Sidelying Exercise Name Clamshells Side bilateral Reps/Minutes 15 Standing Exercises heel cord stretch Standing Exercise Name gastroc and soleus stretch Side bilateral Reps/Minutes 1x30 sec each lateral walking Standing Exercise Name resisted lateral walk Side bilateral Resistance L2 Reps/Minutes 2 laps PT-OP-T Assessment and Plan Start: 06/01/18 14:37 Freq: Status: Active Protocol: Document 06/14/18 16:01 GGD (Rec: 06/14/18 16:08 GGD [email or web address]) Physical Therapy Assessment Assessment Summary Assessment Pt able to progress balance. She need cues for posture and core activation with exercises . Physical Therapy Plan Frequency and Duration Frequency of Treatment 2x/Week Duration of Treatment 8 weeks Plan of Care Start Date 06/01/18 Plan of Care End Date 07/27/18 Next Visit Focus/Plan Next Note Type Treatment Note Next Visit Plan hip and core strengthening.
--- NOTE | 2018-06-21 16:13 | PT.OTN ---
Current Diagnoses Plantar fascial fibromatosis (06/21/18) Physical Therapy Treatment Note PT-OP-A Visit Information Start: 06/01/18 14:37 Freq: Status: Active Protocol: Document 06/21/18 14:00 GGD (Rec: 06/21/18 16:13 GGD [email or web address]) Out-Patient Physical Therapy Visit Information Visit Information Visit Type Treatment Note Visit Note G-codes @ 10 Visit Start Time 12:00 Visit Stop Time 12:40 Total Visit Minutes 40 Visit Number [address] LIGHT MECHANIC Visits 2 Evaluation Information Evaluation Date 06/01/18 PT-OP-B Current Condition Start: 06/01/18 14:37 Freq: Status: Active Protocol: Document 06/01/18 12:40 RCC (Rec: 06/01/18 15:13 RCC [email or web address]) Current Condition History of Current Condition Onset Date 1 year ago Current Complaints B heel pain, neck pain, deconditioning History of Current Condition Pt is a 43 y/o female presenting to physical therapy with bilateral heel and foot pain, deconditioning, neck pain and pain all over body. She states that pain has actually been decreasing in the bilateral feet since she obtained OTC orthotics for her feet. She also quit jogging which seemed to help decrease pain as well. Pt states she has put on weight due to not being able to walk and jog outside over the past few months (she quit ~2 months ago due to pain in feet). She is motivated to get back to jogging and exercise to decrease overall pain and lose weight. Pain is exacerbated by jogging and walking, decreased with rest and her orthotics. She takes Aleve occasionally for pain control. Her prior level of activity before quitting her jogging and walking program was: 4 days per week, for 30 min, doing a jog/walk combo. Treatment Goals Patient/Caregiver Goals get established HEP, get back to jogging and walking for exercise. Prior Functional Status Baseline Function- Gait no issues, community ambulator without device; able to jog Baseline Function- Recreation/Hobbies walk and jogging outdoors Current Functional Impairments (Reported) Functional Limitations- Mobility/Gait increased pain with walking Functional Limitations- Recreation/ unable to jog or walk for Hobbies exercise. Personal Factors Other Personal Factors That May Effect Bipolar disorder, OA- multiple Therapy/Recovery regions per pt. PT-OP-C Subjective Start: 06/01/18 14:37 Freq: Status: Active Protocol: Document 06/21/18 14:00 GGD (Rec: 06/21/18 16:13 GGD [email or web address]) OP-PT Subjective Patient Comments Patient Comments Pt states that she been exercise at home without increase in pain. PT-OP-F Manual Assessment Start: 06/01/18 14:37 Freq: Status: Active Protocol: Document 06/01/18 12:40 RCC (Rec: 06/01/18 15:13 RCC [email or web address]) Manual Assessments Soft Tissue Assessment Soft Tissue Mobility Assessment Increased tension: bilateral plantar fascia (L>R) PT-OP-G Mobility & Gait Start: 06/01/18 14:37 Freq: Status: Active Protocol: Document 06/01/18 12:40 RCC (Rec: 06/01/18 15:13 RCC [email or web address]) OP Gait Assessment Comments Gait Comments knee hyperextension in stance phase B, decreased push-off B PT-OP-J Posture/Palpation/Skin Start: 06/01/18 15:13 Freq: Status: Active Protocol: Document 06/01/18 12:40 RCC (Rec: 06/01/18 15:14 RCC [email or web address]) Posture Evaluation Comments Posture Comments B knee hyperextension, increased genu valgus with squatting. PT-OP-K Range of Motion Start: 06/01/18 14:37 Freq: Status: Active Protocol: Document 06/01/18 12:40 RCC (Rec: 06/01/18 15:13 RCC [email or web address]) Ankle and Foot Goniometric Range of Motion Ankle and Foot Measured in Degrees Right Active Testing Position Supine Dorsiflexion with Knee Flexed 20 Dorsiflexion with Knee Extended 11 Plantarflexion 60 Left Active Testing Position Supine Dorsiflexion with Knee Flexed 19 Dorsiflexion with Knee Extended 9 Plantarflexion 60 PT-OP-L Special Tests Start: 06/01/18 14:37 Freq: Status: Active Protocol: Document 06/01/18 12:40 RCC (Rec: 06/01/18 15:13 RCC [email or web address]) Special Tests Foot/Ankle Special Tests Windlass test Test Results positive B Wilkinson Test Results negative B PT-OP-M Strength Start: 06/01/18 14:37 Freq: Status: Active Protocol: Document 06/01/18 12:40 RCC (Rec: 06/01/18 15:13 RCC [email or web address]) Hip Strength Hip Manual Muscle Testing Right Flexion (L2) 5 Normal Abduction 4 Good Adduction 5 Normal External Rotation 4 Good Internal Rotation 4+ Good+ Left Flexion (L2) 5 Normal Abduction 4- Good- Adduction 5 Normal External Rotation 4 Good Internal Rotation 4+ Good+ Knee Strength Knee Manual Muscle Testing Right Flexion (S2) 4+ Good+ Extension (L3) 5 Normal Left Flexion (S2) 4+ Good+ Extension (L3) 5 Normal Ankle/Foot Strength Ankle and Foot Manual Muscle Testing Right Dorsiflexion (L4) 5 Normal Comments SL heel raise: 8 reps Left Dorsiflexion (L4) 5 Normal Comments SL heel raise: 7 reps PT-OP-Q Treatments Start: 06/01/18 14:37 Freq: Status: Active Protocol: Document 06/21/18 14:00 GGD (Rec: 06/21/18 16:13 GGD [email or web address]) Cardio Equipment Recumbent Elliptical ([employer]) Duration (Minutes) 6 Resistance 3 Gym Equipment Shuttle Recovery Unilateral Squats Resistance 25 lbs Shuttle Recovery Platform Stable Reps/Time x15 each Bilateral Squats Resistance 75 lbs Shuttle Recovery Platform Stable Reps/Time 2x15 Shuttle Balance 1 Details Red- Reps/Duration 10 min Comments WBOS, NBOS, step stance: eyes open, eyes closed and head turns. Therapeutic Exercises Supine Exercises 2 Supine Exercise Name Posterior Pelvic tilt Reps/Minutes 3 1 Supine Exercise Name bridges Side bilateral Reps/Minutes 20 SLR flexion Supine Exercise Name straight leg raise- hip flexion Side bilateral Reps/Minutes 10 each Sidelying Exercises 1 Sidelying Exercise Name Clamshells Side bilateral Reps/Minutes 15 Standing Exercises heel cord stretch Standing Exercise Name gastroc and soleus stretch Side bilateral Reps/Minutes 1x30 sec each lateral walking Standing Exercise Name resisted lateral walk Side bilateral Resistance L2 Reps/Minutes 2 laps PT-OP-T Assessment and Plan Start: 06/01/18 14:37 Freq: Status: Active Protocol: Document 06/21/18 14:00 GGD (Rec: 06/21/18 16:13 GGD [email or web address]) Physical Therapy Assessment Goals LE weakness Impairment LE weakness Short Term Goal (STG) 4+/5 with MMT to improve tolerance to gait and functional mobility. STG Duration 4 weeks [facility]ci Goal (LTG) 5/5 with MMT to improve tolerance to gait and functional mobility. LTG Duration 8 weeks pain Impairment 2/10 pain in bilateral feet Halftone Operator Goal (LTG) pt to return to jogging and walking program, 4x/wk for 30 min without c/o pain prior to d/c. LTG Duration 8 weeks Lower Extremity Functional Scale Impairment 44 (55%) LEFS Short Term Goal (STG) 50/80 or greater to demonstrate improvements with functional activities in relation to pain of the bilateral feet. STG Duration 4 weeks Fci Goal (LTG) 60/80 or greater to demonstrate improvements with functional activities in relation to pain of the bilateral feet. LTG Duration 8 weeks Assessment Summary Assessment Pt fatigued quickly with hip and core strengthening. She had improved tolerance to shuttle strengthening. Physical Therapy Plan Frequency and Duration Frequency of Treatment 2x/Week Duration of Treatment 8 weeks Plan of Care Start Date 06/01/18 Plan of Care End Date 07/27/18 Next Visit Focus/Plan Next Note Type Treatment Note Next Visit Plan hip and core strengthening, balance.
--- NOTE | 2018-06-23 11:54 | PT.OTN ---
Current Diagnoses Plantar fascial fibromatosis (06/23/18) Physical Therapy Treatment Note PT-OP-A Visit Information Start: 06/01/18 14:37 Freq: Status: Active Protocol: Document 06/23/18 11:54 RCC (Rec: 06/23/18 11:59 RCC [email or web address]) Out-Patient Physical Therapy Visit Information Visit Information Visit Type Treatment Note Visit Note G-codes @ 10 Visit Start Time 11:15 Visit Stop Time 11:54 Total Visit Minutes 39 Visit Number 6 Number of TITLE CLERK Visits 0 Evaluation Information Evaluation Date 06/01/18 PT-OP-B Current Condition Start: 06/01/18 14:37 Freq: Status: Active Protocol: Document 06/01/18 12:40 RCC (Rec: 06/01/18 15:13 RCC [email or web address]) Current Condition History of Current Condition Onset Date 1 year ago Current Complaints B heel pain, neck pain, deconditioning History of Current Condition Pt is a 43 y/o female presenting to physical therapy with bilateral heel and foot pain, deconditioning, neck pain and pain all over body. She states that pain has actually been decreasing in the bilateral feet since she obtained OTC orthotics for her feet. She also quit jogging which seemed to help decrease pain as well. Pt states she has put on weight due to not being able to walk and jog outside over the past few months (she quit ~2 months ago due to pain in feet). She is motivated to get back to jogging and exercise to decrease overall pain and lose weight. Pain is exacerbated by jogging and walking, decreased with rest and her orthotics. She takes Aleve occasionally for pain control. Her prior level of activity before quitting her jogging and walking program was: 4 days per week, for 30 min, doing a jog/walk combo. Treatment Goals Patient/Caregiver Goals get established HEP, get back to jogging and walking for exercise. Prior Functional Status Baseline Function- Gait no issues, community ambulator without device; able to jog Baseline Function- Recreation/Hobbies walk and jogging outdoors Current Functional Impairments (Reported) Functional Limitations- Mobility/Gait increased pain with walking Functional Limitations- Recreation/ unable to jog or walk for Hobbies exercise. Personal Factors Other Personal Factors That May Effect Bipolar disorder, OA- multiple Therapy/Recovery regions per pt. PT-OP-C Subjective Start: 06/01/18 14:37 Freq: Status: Active Protocol: Document 06/23/18 11:54 RCC (Rec: 06/23/18 11:59 RCC [email or web address]) OP-PT Subjective Patient Comments Patient Comments Pt continues to perform her HEP. After 39 min, pt reported she was very fatigued. PT-OP-F Manual Assessment Start: 06/01/18 14:37 Freq: Status: Active Protocol: Document 06/01/18 12:40 RCC (Rec: 06/01/18 15:13 RCC [email or web address]) Manual Assessments Soft Tissue Assessment Soft Tissue Mobility Assessment Increased tension: bilateral plantar fascia (L>R) PT-OP-G Mobility & Gait Start: 06/01/18 14:37 Freq: Status: Active Protocol: Document 06/01/18 12:40 RCC (Rec: 06/01/18 15:13 RCC [email or web address]) OP Gait Assessment Comments Gait Comments knee hyperextension in stance phase B, decreased push-off B PT-OP-J Posture/Palpation/Skin Start: 06/01/18 15:13 Freq: Status: Active Protocol: Document 06/01/18 12:40 RCC (Rec: 06/01/18 15:14 RCC [email or web address]) Posture Evaluation Comments Posture Comments B knee hyperextension, increased genu valgus with squatting. PT-OP-K Range of Motion Start: 06/01/18 14:37 Freq: Status: Active Protocol: Document 06/01/18 12:40 RCC (Rec: 06/01/18 15:13 RCC [email or web address]) Ankle and Foot Goniometric Range of Motion Ankle and Foot Measured in Degrees Right Active Testing Position Supine Dorsiflexion with Knee Flexed 20 Dorsiflexion with Knee Extended 11 Plantarflexion 60 Left Active Testing Position Supine Dorsiflexion with Knee Flexed 19 Dorsiflexion with Knee Extended 9 Plantarflexion 60 PT-OP-L Special Tests Start: 06/01/18 14:37 Freq: Status: Active Protocol: Document 06/01/18 12:40 RCC (Rec: 06/01/18 15:13 RCC [email or web address]) Special Tests Foot/Ankle Special Tests Windlass test Test Results positive B Wilkinson Test Results negative B PT-OP-M Strength Start: 06/01/18 14:37 Freq: Status: Active Protocol: Document 06/01/18 12:40 RCC (Rec: 06/01/18 15:13 RCC [email or web address]) Hip Strength Hip Manual Muscle Testing Right Flexion (L2) 5 Normal Abduction 4 Good Adduction 5 Normal External Rotation 4 Good Internal Rotation 4+ Good+ Left Flexion (L2) 5 Normal Abduction 4- Good- Adduction 5 Normal External Rotation 4 Good Internal Rotation 4+ Good+ Knee Strength Knee Manual Muscle Testing Right Flexion (S2) 4+ Good+ Extension (L3) 5 Normal Left Flexion (S2) 4+ Good+ Extension (L3) 5 Normal Ankle/Foot Strength Ankle and Foot Manual Muscle Testing Right Dorsiflexion (L4) 5 Normal Comments SL heel raise: 8 reps Left Dorsiflexion (L4) 5 Normal Comments SL heel raise: 7 reps PT-OP-Q Treatments Start: 06/01/18 14:37 Freq: Status: Active Protocol: Document 06/23/18 11:54 RCC (Rec: 06/23/18 11:59 RCC [email or web address]) Cardio Equipment Recumbent Elliptical ([employer]) Duration (Minutes) 6 Resistance 3 Gym Equipment Cable Column (Body Solid) Leg Curl Resistance 20 lbs Reps/Time x15 Leg Extension Resistance 20 lbs Reps/Time x15 Shuttle Recovery Unilateral Squats Resistance 50 lbs Shuttle Recovery Platform Stable Reps/Time x15 each Bilateral Squats Resistance 87 lbs Shuttle Recovery Platform Stable Reps/Time 2x15 Shuttle Balance 1 Details Red- Reps/Duration 8 min Comments WBOS, NBOS, step stance: eyes open, eyes closed and head turns. Therapeutic Exercises Supine Exercises 1 Supine Exercise Name bridges Side bilateral Reps/Minutes 20 Sitting Exercises hip IR Sitting Exercise Name hip IR Side bilateral Resistance L1 band Reps/Minutes 10 each Standing Exercises heel cord stretch Standing Exercise Name gastroc and soleus stretch Side bilateral Reps/Minutes 1x30 sec each PT-OP-T Assessment and Plan Start: 06/01/18 14:37 Freq: Status: Active Protocol: Document 06/23/18 11:54 RCC (Rec: 06/23/18 11:59 RCC [email or web address]) Physical Therapy Assessment Assessment Summary Assessment Pt fatigued after 39 min of PT session, but denied increased pain. Pt with good pacing and able to increase resistance on leg press today. She continues to have bilateral hip weakness, but tolerated seated IR much better than reverse clamshell. Physical Therapy Plan Frequency and Duration Frequency of Treatment 2x/Week Duration of Treatment 8 weeks Plan of Care Start Date 06/01/18 Plan of Care End Date 07/27/18 Next Visit Focus/Plan Next Note Type Treatment Note Next Visit Plan core strengthening (planks), continue to progress lower chain strength.
--- NOTE | 2018-06-28 15:01 | PT.OTN ---
Current Diagnoses Plantar fascial fibromatosis (06/28/18) Physical Therapy Treatment Note PT-OP-A Visit Information Start: 06/01/18 14:37 Freq: Status: Active Protocol: Document 06/28/18 11:15 GGD (Rec: 06/28/18 15:01 GGD [email or web address]) Out-Patient Physical Therapy Visit Information Visit Information Visit Type Treatment Note Visit Note G-codes @ 10 Visit Start Time 11:15 Visit Stop Time 11:55 Total Visit Minutes 40 Visit Number 7 Number of CABLE COVERER Visits 1 Evaluation Information Evaluation Date 06/01/18 PT-OP-B Current Condition Start: 06/01/18 14:37 Freq: Status: Active Protocol: Document 06/01/18 12:40 RCC (Rec: 06/01/18 15:13 RCC [email or web address]) Current Condition History of Current Condition Onset Date 1 year ago Current Complaints B heel pain, neck pain, deconditioning History of Current Condition Pt is a 43 y/o female presenting to physical therapy with bilateral heel and foot pain, deconditioning, neck pain and pain all over body. She states that pain has actually been decreasing in the bilateral feet since she obtained OTC orthotics for her feet. She also quit jogging which seemed to help decrease pain as well. Pt states she has put on weight due to not being able to walk and jog outside over the past few months (she quit ~2 months ago due to pain in feet). She is motivated to get back to jogging and exercise to decrease overall pain and lose weight. Pain is exacerbated by jogging and walking, decreased with rest and her orthotics. She takes Aleve occasionally for pain control. Her prior level of activity before quitting her jogging and walking program was: 4 days per week, for 30 min, doing a jog/walk combo. Treatment Goals Patient/Caregiver Goals get established HEP, get back to jogging and walking for exercise. Prior Functional Status Baseline Function- Gait no issues, community ambulator without device; able to jog Baseline Function- Recreation/Hobbies walk and jogging outdoors Current Functional Impairments (Reported) Functional Limitations- Mobility/Gait increased pain with walking Functional Limitations- Recreation/ unable to jog or walk for Hobbies exercise. Personal Factors Other Personal Factors That May Effect Bipolar disorder, OA- multiple Therapy/Recovery regions per pt. PT-OP-C Subjective Start: 06/01/18 14:37 Freq: Status: Active Protocol: Document 06/28/18 11:15 GGD (Rec: 06/28/18 15:01 GGD [email or web address]) OP-PT Subjective Patient Comments Patient Comments Pt states she has jogged 2 times without bottom foot pain , but a little pain on right top of foot. PT-OP-F Manual Assessment Start: 06/01/18 14:37 Freq: Status: Active Protocol: Document 06/01/18 12:40 RCC (Rec: 06/01/18 15:13 RCC [email or web address]) Manual Assessments Soft Tissue Assessment Soft Tissue Mobility Assessment Increased tension: bilateral plantar fascia (L>R) PT-OP-G Mobility & Gait Start: 06/01/18 14:37 Freq: Status: Active Protocol: Document 06/01/18 12:40 RCC (Rec: 06/01/18 15:13 RCC [email or web address]) OP Gait Assessment Comments Gait Comments knee hyperextension in stance phase B, decreased push-off B PT-OP-J Posture/Palpation/Skin Start: 06/01/18 15:13 Freq: Status: Active Protocol: Document 06/01/18 12:40 RCC (Rec: 06/01/18 15:14 RCC [email or web address]) Posture Evaluation Comments Posture Comments B knee hyperextension, increased genu valgus with squatting. PT-OP-K Range of Motion Start: 06/01/18 14:37 Freq: Status: Active Protocol: Document 06/01/18 12:40 RCC (Rec: 06/01/18 15:13 RCC [email or web address]) Ankle and Foot Goniometric Range of Motion Ankle and Foot Measured in Degrees Right Active Testing Position Supine Dorsiflexion with Knee Flexed 20 Dorsiflexion with Knee Extended 11 Plantarflexion 60 Left Active Testing Position Supine Dorsiflexion with Knee Flexed 19 Dorsiflexion with Knee Extended 9 Plantarflexion 60 PT-OP-L Special Tests Start: 06/01/18 14:37 Freq: Status: Active Protocol: Document 06/01/18 12:40 RCC (Rec: 06/01/18 15:13 RCC [email or web address]) Special Tests Foot/Ankle Special Tests Windlass test Test Results positive B Wilkinson Test Results negative B PT-OP-M Strength Start: 06/01/18 14:37 Freq: Status: Active Protocol: Document 06/01/18 12:40 RCC (Rec: 06/01/18 15:13 RCC [email or web address]) Hip Strength Hip Manual Muscle Testing Right Flexion (L2) 5 Normal Abduction 4 Good Adduction 5 Normal External Rotation 4 Good Internal Rotation 4+ Good+ Left Flexion (L2) 5 Normal Abduction 4- Good- Adduction 5 Normal External Rotation 4 Good Internal Rotation 4+ Good+ Knee Strength Knee Manual Muscle Testing Right Flexion (S2) 4+ Good+ Extension (L3) 5 Normal Left Flexion (S2) 4+ Good+ Extension (L3) 5 Normal Ankle/Foot Strength Ankle and Foot Manual Muscle Testing Right Dorsiflexion (L4) 5 Normal Comments SL heel raise: 8 reps Left Dorsiflexion (L4) 5 Normal Comments SL heel raise: 7 reps PT-OP-Q Treatments Start: 06/01/18 14:37 Freq: Status: Active Protocol: Document 06/28/18 11:15 GGD (Rec: 06/28/18 15:01 GGD [email or web address]) Cardio Equipment Recumbent Elliptical ([employer]) Duration (Minutes) 6 Resistance 3 Gym Equipment Cable Column (Body Solid) Leg Curl Resistance 25 lbs Reps/Time x15 Leg Extension Resistance 20 lbs Reps/Time x15 Shuttle Recovery Unilateral Squats Resistance 50 lbs Shuttle Recovery Platform Stable Reps/Time x15 each Bilateral Squats Resistance 87 lbs Shuttle Recovery Platform Stable Reps/Time 2x15 Shuttle Balance 1 Details Red- Reps/Duration 8 min Comments WBOS, NBOS, step stance: eyes open, eyes closed and head turns. Therapeutic Exercises Prone Exercises 1 Prone Exercise Name Planks Reps/Minutes 3 x 5 sec Sitting Exercises hip IR Sitting Exercise Name hip IR Side bilateral Resistance L1 band Reps/Minutes 10 each Standing Exercises 2 Standing Exercise Name mini lunges Reps/Minutes 1 lap Comments walking at rail PT-OP-T Assessment and Plan Start: 06/01/18 14:37 Freq: Status: Active Protocol: Document 06/28/18 11:15 GGD (Rec: 06/28/18 15:01 GGD [email or web address]) Physical Therapy Assessment Assessment Summary Assessment Pt had less fatigue. She did fatigue with core and balance activities. She did do have good tolerance to LE strengthening. Physical Therapy Plan Frequency and Duration Frequency of Treatment 2x/Week Duration of Treatment 8 weeks Plan of Care Start Date 06/01/18 Plan of Care End Date 07/27/18 Next Visit Focus/Plan Next Note Type Treatment Note Next Visit Plan LE and core strengthening.
--- NOTE | 2018-06-30 11:50 | PT.OTN ---
Current Diagnoses Plantar fascial fibromatosis (06/30/18) Physical Therapy Treatment Note PT-OP-A Visit Information Start: 06/01/18 14:37 Freq: Status: Active Protocol: Document 06/30/18 11:50 RCC (Rec: 06/30/18 13:30 RCC [email or web address]) Out-Patient Physical Therapy Visit Information Visit Information Visit Type Treatment Note Visit Note G-codes @ 10 Visit Start Time 11:15 Visit Stop Time 11:50 Total Visit Minutes 35 Visit Number 8 Number of LIFE SCIENCES DIRECTOR Visits 0 Evaluation Information Evaluation Date 06/01/18 PT-OP-B Current Condition Start: 06/01/18 14:37 Freq: Status: Active Protocol: Document 06/01/18 12:40 RCC (Rec: 06/01/18 15:13 RCC [email or web address]) Current Condition History of Current Condition Onset Date 1 year ago Current Complaints B heel pain, neck pain, deconditioning History of Current Condition Pt is a 43 y/o female presenting to physical therapy with bilateral heel and foot pain, deconditioning, neck pain and pain all over body. She states that pain has actually been decreasing in the bilateral feet since she obtained OTC orthotics for her feet. She also quit jogging which seemed to help decrease pain as well. Pt states she has put on weight due to not being able to walk and jog outside over the past few months (she quit ~2 months ago due to pain in feet). She is motivated to get back to jogging and exercise to decrease overall pain and lose weight. Pain is exacerbated by jogging and walking, decreased with rest and her orthotics. She takes Aleve occasionally for pain control. Her prior level of activity before quitting her jogging and walking program was: 4 days per week, for 30 min, doing a jog/walk combo. Treatment Goals Patient/Caregiver Goals get established HEP, get back to jogging and walking for exercise. Prior Functional Status Baseline Function- Gait no issues, community ambulator without device; able to jog Baseline Function- Recreation/Hobbies walk and jogging outdoors Current Functional Impairments (Reported) Functional Limitations- Mobility/Gait increased pain with walking Functional Limitations- Recreation/ unable to jog or walk for Hobbies exercise. Personal Factors Other Personal Factors That May Effect Bipolar disorder, OA- multiple Therapy/Recovery regions per pt. PT-OP-C Subjective Start: 06/01/18 14:37 Freq: Status: Active Protocol: Document 06/30/18 11:50 RCC (Rec: 06/30/18 13:30 RCC [email or web address]) OP-PT Subjective Patient Comments Patient Comments Pt had pain on the R top of foot after doing the Shuttle Balance on Wednesday. She requested a shorter session today, as she is having a heavy package delivered that the newspaper delivery driver will carry for her up the stairs, since she does not think she can carry a 50 lb box. She is excited she has lost 8 lbs since starting PT and exercise . PT-OP-F Manual Assessment Start: 06/01/18 14:37 Freq: Status: Active Protocol: Document 06/01/18 12:40 RCC (Rec: 06/01/18 15:13 RCC [email or web address]) Manual Assessments Soft Tissue Assessment Soft Tissue Mobility Assessment Increased tension: bilateral plantar fascia (L>R) PT-OP-G Mobility & Gait Start: 06/01/18 14:37 Freq: Status: Active Protocol: Document 06/01/18 12:40 RCC (Rec: 06/01/18 15:13 RCC [email or web address]) OP Gait Assessment Comments Gait Comments knee hyperextension in stance phase B, decreased push-off B PT-OP-J Posture/Palpation/Skin Start: 06/01/18 15:13 Freq: Status: Active Protocol: Document 06/01/18 12:40 RCC (Rec: 06/01/18 15:14 RCC [email or web address]) Posture Evaluation Comments Posture Comments B knee hyperextension, increased genu valgus with squatting. PT-OP-K Range of Motion Start: 06/01/18 14:37 Freq: Status: Active Protocol: Document 06/01/18 12:40 RCC (Rec: 06/01/18 15:13 RCC [email or web address]) Ankle and Foot Goniometric Range of Motion Ankle and Foot Measured in Degrees Right Active Testing Position Supine Dorsiflexion with Knee Flexed 20 Dorsiflexion with Knee Extended 11 Plantarflexion 60 Left Active Testing Position Supine Dorsiflexion with Knee Flexed 19 Dorsiflexion with Knee Extended 9 Plantarflexion 60 PT-OP-L Special Tests Start: 06/01/18 14:37 Freq: Status: Active Protocol: Document 06/01/18 12:40 RCC (Rec: 06/01/18 15:13 RCC [email or web address]) Special Tests Foot/Ankle Special Tests Windlass test Test Results positive B Wilkinson Test Results negative B PT-OP-M Strength Start: 06/01/18 14:37 Freq: Status: Active Protocol: Document 06/01/18 12:40 RCC (Rec: 06/01/18 15:13 RCC [email or web address]) Hip Strength Hip Manual Muscle Testing Right Flexion (L2) 5 Normal Abduction 4 Good Adduction 5 Normal External Rotation 4 Good Internal Rotation 4+ Good+ Left Flexion (L2) 5 Normal Abduction 4- Good- Adduction 5 Normal External Rotation 4 Good Internal Rotation 4+ Good+ Knee Strength Knee Manual Muscle Testing Right Flexion (S2) 4+ Good+ Extension (L3) 5 Normal Left Flexion (S2) 4+ Good+ Extension (L3) 5 Normal Ankle/Foot Strength Ankle and Foot Manual Muscle Testing Right Dorsiflexion (L4) 5 Normal Comments SL heel raise: 8 reps Left Dorsiflexion (L4) 5 Normal Comments SL heel raise: 7 reps PT-OP-Q Treatments Start: 06/01/18 14:37 Freq: Status: Active Protocol: Document 06/30/18 11:50 RCC (Rec: 06/30/18 13:30 RCC [email or web address]) Cardio Equipment Recumbent Elliptical (Biodex) Duration (Minutes) 6 Resistance 3 Gym Equipment Shuttle Recovery Unilateral Squats Resistance 50 lbs Shuttle Recovery Platform Stable Reps/Time x15 each Bilateral Squats Resistance 75 lbs Shuttle Recovery Platform Stable Reps/Time 2x15 Therapeutic Exercises Supine Exercises 1 Supine Exercise Name bridges Side bilateral Equipment Used 55 cm ball Reps/Minutes 2x10 Standing Exercises 2 Standing Exercise Name mini lunges Reps/Minutes 2 laps Comments walking at // bars heel cord stretch Standing Exercise Name gastroc and soleus stretch Side bilateral Reps/Minutes 1x30 sec each lateral walking Standing Exercise Name resisted lateral, forward, backward walk Side bilateral Resistance L2 Reps/Minutes 4 laps each Gait Training Gait Activity heel-toe gait Description heel-toe gait Device Used // bars Distance/Duration 5 min PT-OP-T Assessment and Plan Start: 06/01/18 14:37 Freq: Status: Active Protocol: Document 06/30/18 11:50 RCC (Rec: 06/30/18 13:30 RCC [email or web address]) Physical Therapy Assessment Assessment Summary Assessment Pt was unable to tolerate 87 lbs on the Shuttle leg press today due to weakness/fatigue, but no c/o pain. Pt is motivated to continue to exercise, and encouraged by recent weight loss as well. She has jogged twice this week , very short, below her prior level of activity but is making progress. Physical Therapy Plan Frequency and Duration Frequency of Treatment 2x/Week Duration of Treatment 8 weeks Plan of Care Start Date 06/01/18 Plan of Care End Date 07/27/18 Next Visit Focus/Plan Next Note Type Treatment Note Next Visit Plan continue to progress core and LE stability as tolerated.
--- NOTE | 2018-07-06 11:57 | PT.OTN ---
Current Diagnoses Plantar fascial fibromatosis (07/06/18) Physical Therapy Treatment Note PT-OP-A Visit Information Start: 06/01/18 14:37 Freq: Status: Active Protocol: Document 07/06/18 11:57 RCC (Rec: 07/06/18 13:42 RCC [email or web address]) Out-Patient Physical Therapy Visit Information Visit Information Visit Type Treatment Note Visit Note G-codes @ 10 Visit Start Time 11:17 Visit Stop Time 11:57 Total Visit Minutes 40 Visit Number 9 Number of TRAFFIC SIGN ERECTION SUPERVISOR Visits 0 Evaluation Information Evaluation Date 06/01/18 PT-OP-B Current Condition Start: 06/01/18 14:37 Freq: Status: Active Protocol: Document 06/01/18 12:40 RCC (Rec: 06/01/18 15:13 RCC [email or web address]) Current Condition History of Current Condition Onset Date 1 year ago Current Complaints B heel pain, neck pain, deconditioning History of Current Condition Pt is a 43 y/o female presenting to physical therapy with bilateral heel and foot pain, deconditioning, neck pain and pain all over body. She states that pain has actually been decreasing in the bilateral feet since she obtained OTC orthotics for her feet. She also quit jogging which seemed to help decrease pain as well. Pt states she has put on weight due to not being able to walk and jog outside over the past few months (she quit ~2 months ago due to pain in feet). She is motivated to get back to jogging and exercise to decrease overall pain and lose weight. Pain is exacerbated by jogging and walking, decreased with rest and her orthotics. She takes Aleve occasionally for pain control. Her prior level of activity before quitting her jogging and walking program was: 4 days per week, for 30 min, doing a jog/walk combo. Treatment Goals Patient/Caregiver Goals get established HEP, get back to jogging and walking for exercise. Prior Functional Status Baseline Function- Gait no issues, community ambulator without device; able to jog Baseline Function- Recreation/Hobbies walk and jogging outdoors Current Functional Impairments (Reported) Functional Limitations- Mobility/Gait increased pain with walking Functional Limitations- Recreation/ unable to jog or walk for Hobbies exercise. Personal Factors Other Personal Factors That May Effect Bipolar disorder, OA- multiple Therapy/Recovery regions per pt. PT-OP-C Subjective Start: 06/01/18 14:37 Freq: Status: Active Protocol: Document 07/06/18 11:57 RCC (Rec: 07/06/18 13:42 RCC [email or web address]) OP-PT Subjective Patient Comments Patient Comments Pt has been able to perform her HEP, but did not jog this week due to the weather. She is feeling stronger in her lower body. Pt had to stop taking tumeric due to kidney pain, now back on ibuprofen for neck pain. PT-OP-F Manual Assessment Start: 06/01/18 14:37 Freq: Status: Active Protocol: Document 06/01/18 12:40 RCC (Rec: 06/01/18 15:13 RCC [email or web address]) Manual Assessments Soft Tissue Assessment Soft Tissue Mobility Assessment Increased tension: bilateral plantar fascia (L>R) PT-OP-G Mobility & Gait Start: 06/01/18 14:37 Freq: Status: Active Protocol: Document 06/01/18 12:40 RCC (Rec: 06/01/18 15:13 RCC [email or web address]) OP Gait Assessment Comments Gait Comments knee hyperextension in stance phase B, decreased push-off B PT-OP-J Posture/Palpation/Skin Start: 06/01/18 15:13 Freq: Status: Active Protocol: Document 06/01/18 12:40 RCC (Rec: 06/01/18 15:14 RCC [email or web address]) Posture Evaluation Comments Posture Comments B knee hyperextension, increased genu valgus with squatting. PT-OP-K Range of Motion Start: 06/01/18 14:37 Freq: Status: Active Protocol: Document 06/01/18 12:40 RCC (Rec: 06/01/18 15:13 RCC [email or web address]) Ankle and Foot Goniometric Range of Motion Ankle and Foot Measured in Degrees Right Active Testing Position Supine Dorsiflexion with Knee Flexed 20 Dorsiflexion with Knee Extended 11 Plantarflexion 60 Left Active Testing Position Supine Dorsiflexion with Knee Flexed 19 Dorsiflexion with Knee Extended 9 Plantarflexion 60 PT-OP-L Special Tests Start: 06/01/18 14:37 Freq: Status: Active Protocol: Document 06/01/18 12:40 RCC (Rec: 06/01/18 15:13 RCC [email or web address]) Special Tests Foot/Ankle Special Tests Windlass test Test Results positive B Wilkinson Test Results negative B PT-OP-M Strength Start: 06/01/18 14:37 Freq: Status: Active Protocol: Document 06/01/18 12:40 RCC (Rec: 06/01/18 15:13 RCC [email or web address]) Hip Strength Hip Manual Muscle Testing Right Flexion (L2) 5 Normal Abduction 4 Good Adduction 5 Normal External Rotation 4 Good Internal Rotation 4+ Good+ Left Flexion (L2) 5 Normal Abduction 4- Good- Adduction 5 Normal External Rotation 4 Good Internal Rotation 4+ Good+ Knee Strength Knee Manual Muscle Testing Right Flexion (S2) 4+ Good+ Extension (L3) 5 Normal Left Flexion (S2) 4+ Good+ Extension (L3) 5 Normal Ankle/Foot Strength Ankle and Foot Manual Muscle Testing Right Dorsiflexion (L4) 5 Normal Comments SL heel raise: 8 reps Left Dorsiflexion (L4) 5 Normal Comments SL heel raise: 7 reps PT-OP-Q Treatments Start: 06/01/18 14:37 Freq: Status: Active Protocol: Document 07/06/18 11:57 RCC (Rec: 07/06/18 13:42 RCC [email or web address]) Cardio Equipment Recumbent Elliptical (Biodex) Duration (Minutes) 8 Resistance 3 Gym Equipment Shuttle Recovery Unilateral Squats Resistance 50 lbs Shuttle Recovery Platform Stable Reps/Time x15 each Bilateral Squats Resistance 75 lbs Shuttle Recovery Platform Stable Reps/Time 2x15 Therapeutic Exercises Supine Exercises reverse leg press Supine Exercise Name reverse leg press- B knee and hip flexion/extension Side bilateral Resistance L2 band Equipment Used 55 cm ball Reps/Minutes x15 1 Supine Exercise Name bridges Side bilateral Equipment Used 55 cm ball Reps/Minutes 2x10 Standing Exercises step up Standing Exercise Name step up forward, down backward on BOSU (blue) Side bilateral Reps/Minutes 10 each LE 2 Standing Exercise Name mini lunges Reps/Minutes 2 laps Comments walking at // bars heel cord stretch Standing Exercise Name gastroc and soleus stretch Side bilateral Reps/Minutes 2x30 sec each lateral walking Standing Exercise Name resisted lateral, forward, backward walk Side bilateral Resistance L3 Reps/Minutes 2 laps each PT-OP-T Assessment and Plan Start: 06/01/18 14:37 Freq: Status: Active Protocol: Document 07/06/18 11:57 RCC (Rec: 07/06/18 13:42 RCC [email or web address]) Physical Therapy Assessment Assessment Summary Assessment Pt tolerated strengthening well without c/o pain. She did fatigue with increased resistance during walking with band. Physical Therapy Plan Next Visit Focus/Plan Next Note Type Progress Note Next Visit Plan core and LE stability
--- NOTE | 2018-07-14 13:15 | PT.OTN ---
Current Diagnoses Plantar fascial fibromatosis (07/14/18) Physical Therapy Treatment Note PT-OP-A Visit Information Start: 06/01/18 14:37 Freq: Status: Active Protocol: Document 07/14/18 11:15 HH (Rec: 07/14/18 13:15 HH [email or web address]) Out-Patient Physical Therapy Visit Information Visit Information Visit Type Progress Note Visit Start Time 11:15 Visit Stop Time 12:00 Total Visit Minutes 45 Visit Number 10 Number of OUTDOOR LANDSCAPE ARCHITECT Visits 0 PT-OP-B Current Condition Start: 06/01/18 14:37 Freq: Status: Active Protocol: Document 06/01/18 12:40 RCC (Rec: 06/01/18 15:13 RCC [email or web address]) Current Condition History of Current Condition Onset Date 1 year ago Current Complaints B heel pain, neck pain, deconditioning History of Current Condition Pt is a 43 y/o female presenting to physical therapy with bilateral heel and foot pain, deconditioning, neck pain and pain all over body. She states that pain has actually been decreasing in the bilateral feet since she obtained OTC orthotics for her feet. She also quit jogging which seemed to help decrease pain as well. Pt states she has put on weight due to not being able to walk and jog outside over the past few months (she quit ~2 months ago due to pain in feet). She is motivated to get back to jogging and exercise to decrease overall pain and lose weight. Pain is exacerbated by jogging and walking, decreased with rest and her orthotics. She takes Aleve occasionally for pain control. Her prior level of activity before quitting her jogging and walking program was: 4 days per week, for 30 min, doing a jog/walk combo. Treatment Goals Patient/Caregiver Goals get established HEP, get back to jogging and walking for exercise. Prior Functional Status Baseline Function- Gait no issues, community ambulator without device; able to jog Baseline Function- Recreation/Hobbies walk and jogging outdoors Current Functional Impairments (Reported) Functional Limitations- Mobility/Gait increased pain with walking Functional Limitations- Recreation/ unable to jog or walk for Hobbies exercise. Personal Factors Other Personal Factors That May Effect Bipolar disorder, OA- multiple Therapy/Recovery regions per pt. PT-OP-C Subjective Start: 06/01/18 14:37 Freq: Status: Active Protocol: Document 07/14/18 11:15 HH (Rec: 07/14/18 13:15 HH [email or web address]) OP-PT Subjective Patient Comments Patient Comments Pt compliant to her HEP. Pt denies pain recently who reports she has been taken pain medication ibuprofen as needed. Pt also states MD told her to participate weight loss program to address her increased stress on B LE. PT-OP-F Manual Assessment Start: 06/01/18 14:37 Freq: Status: Active Protocol: Document 06/01/18 12:40 RCC (Rec: 06/01/18 15:13 RCC [email or web address]) Manual Assessments Soft Tissue Assessment Soft Tissue Mobility Assessment Increased tension: bilateral plantar fascia (L>R) PT-OP-G Mobility & Gait Start: 06/01/18 14:37 Freq: Status: Active Protocol: Document 06/01/18 12:40 RCC (Rec: 06/01/18 15:13 RCC [email or web address]) OP Gait Assessment Comments Gait Comments knee hyperextension in stance phase B, decreased push-off B PT-OP-J Posture/Palpation/Skin Start: 06/01/18 15:13 Freq: Status: Active Protocol: Document 06/01/18 12:40 RCC (Rec: 06/01/18 15:14 RCC [email or web address]) Posture Evaluation Comments Posture Comments B knee hyperextension, increased genu valgus with squatting. PT-OP-K Range of Motion Start: 06/01/18 14:37 Freq: Status: Active Protocol: Document 06/01/18 12:40 RCC (Rec: 06/01/18 15:13 RCC [email or web address]) Ankle and Foot Goniometric Range of Motion Ankle and Foot Measured in Degrees Right Active Testing Position Supine Dorsiflexion with Knee Flexed 20 Dorsiflexion with Knee Extended 11 Plantarflexion 60 Left Active Testing Position Supine Dorsiflexion with Knee Flexed 19 Dorsiflexion with Knee Extended 9 Plantarflexion 60 PT-OP-L Special Tests Start: 06/01/18 14:37 Freq: Status: Active Protocol: Document 06/01/18 12:40 RCC (Rec: 06/01/18 15:13 RCC [email or web address]) Special Tests Foot/Ankle Special Tests Windlass test Test Results positive B Wilkinson Test Results negative B PT-OP-M Strength Start: 06/01/18 14:37 Freq: Status: Active Protocol: Document 06/01/18 12:40 RCC (Rec: 06/01/18 15:13 RCC [email or web address]) Hip Strength Hip Manual Muscle Testing Right Flexion (L2) 5 Normal Abduction 4 Good Adduction 5 Normal External Rotation 4 Good Internal Rotation 4+ Good+ Left Flexion (L2) 5 Normal Abduction 4- Good- Adduction 5 Normal External Rotation 4 Good Internal Rotation 4+ Good+ Knee Strength Knee Manual Muscle Testing Right Flexion (S2) 4+ Good+ Extension (L3) 5 Normal Left Flexion (S2) 4+ Good+ Extension (L3) 5 Normal Ankle/Foot Strength Ankle and Foot Manual Muscle Testing Right Dorsiflexion (L4) 5 Normal Comments SL heel raise: 8 reps Left Dorsiflexion (L4) 5 Normal Comments SL heel raise: 7 reps PT-OP-Q Treatments Start: 06/01/18 14:37 Freq: Status: Active Protocol: Document 07/14/18 11:15 (Rec: 07/14/18 13:15 HH [email or web address]) Therapeutic Exercises Sitting Exercises sci fi press Reps/Minutes 5 mins Standing Exercises eliptical Reps/Minutes 8 mins aureliano disk single leg stance Side bilateral Equipment Used aureliano disk Reps/Minutes 10 claudia board Standing Exercise Name claudia board calf stretch Side bilateral Reps/Minutes 5 mins heel raise Standing Exercise Name heel raise from end range of DF Side bilateral Equipment Used on a 3 inch step Reps/Minutes 5 mins Manual Therapy Treatment Soft Tissue Mobilization IASTM Body Location B gastro Mobilization Type Cross-Friction Strumming Intensity/Depth Superficial Comments tenderness at medial gastro belly PT-OP-T Assessment and Plan Start: 06/01/18 14:37 Freq: Status: Active Protocol: Document 07/14/18 11:15 (Rec: 07/14/18 13:15 [email or web address]) Physical Therapy Assessment Assessment Summary Assessment Pt presents to clinic with denies of foot pain since she started taking pain medication . Pt education is given on pain medication most like will not address the cause of symptoms. And the effect of proper exercises and weight loss on mechanical stress to B LE Pt tolerated tx session well with no c/o pain but tightness at her B distal gastros during eccentric PF strengthening on stairs. Pt also c/o soreness at R ankle with dynamic ankle stability ex at aureliano disk. Pt is introduced to use eliptical and scifi press to similate her previous jogging routine. Pt denies discomfort and pain but slight SOB towards the of tx session. pt requires cues to position her B feet into neutral position to prevent excessive pronation along with tibial internal rotation. Cont POC to address pt's B PF flexibility and strength and progress to return to jogging with the start with eliptical. Physical Therapy Plan Next Visit Focus/Plan Next Note Type Treatment Note Next Visit Plan eliptical with cues to prevent excessive pronation and tibila IR B hip stabilizers strengthening concentric eccentric PF strengthening
--- NOTE | 2018-07-21 12:35 | PT.OTN ---
Current Diagnoses Plantar fascial fibromatosis (07/21/18) Physical Therapy Treatment Note PT-OP-A Visit Information Start: 06/01/18 14:37 Freq: Status: Active Protocol: Document 07/21/18 12:35 RCC (Rec: 07/21/18 12:44 RCC [email or web address]) Out-Patient Physical Therapy Visit Information Visit Information Visit Type Treatment Note Visit Note G-codes @ 20 Visit Start Time 11:52 Visit Stop Time 12:35 Total Visit Minutes 43 Visit Number 11 Number of GLASS SCIENCE ENGINEER Visits 0 Evaluation Information Evaluation Date 06/01/18 PT-OP-B Current Condition Start: 06/01/18 14:37 Freq: Status: Active Protocol: Document 06/01/18 12:40 RCC (Rec: 06/01/18 15:13 RCC [email or web address]) Current Condition History of Current Condition Onset Date 1 year ago Current Complaints B heel pain, neck pain, deconditioning History of Current Condition Pt is a 43 y/o female presenting to physical therapy with bilateral heel and foot pain, deconditioning, neck pain and pain all over body. She states that pain has actually been decreasing in the bilateral feet since she obtained OTC orthotics for her feet. She also quit jogging which seemed to help decrease pain as well. Pt states she has put on weight due to not being able to walk and jog outside over the past few months (she quit ~2 months ago due to pain in feet). She is motivated to get back to jogging and exercise to decrease overall pain and lose weight. Pain is exacerbated by jogging and walking, decreased with rest and her orthotics. She takes Aleve occasionally for pain control. Her prior level of activity before quitting her jogging and walking program was: 4 days per week, for 30 min, doing a jog/walk combo. Treatment Goals Patient/Caregiver Goals get established HEP, get back to jogging and walking for exercise. Prior Functional Status Baseline Function- Gait no issues, community ambulator without device; able to jog Baseline Function- Recreation/Hobbies walk and jogging outdoors Current Functional Impairments (Reported) Functional Limitations- Mobility/Gait increased pain with walking Functional Limitations- Recreation/ unable to jog or walk for Hobbies exercise. Personal Factors Other Personal Factors That May Effect Bipolar disorder, OA- multiple Therapy/Recovery regions per pt. PT-OP-C Subjective Start: 06/01/18 14:37 Freq: Status: Active Protocol: Document 07/21/18 12:35 RCC (Rec: 07/21/18 12:44 RCC [email or web address]) OP-PT Subjective Patient Comments Patient Comments Pt reports that she had increased pain in the bilateral anterior ankles after doing the elliptical. She is going to attempt some interval speed/brisk walking this week. PT-OP-F Manual Assessment Start: 06/01/18 14:37 Freq: Status: Active Protocol: Document 06/01/18 12:40 RCC (Rec: 06/01/18 15:13 RCC [email or web address]) Manual Assessments Soft Tissue Assessment Soft Tissue Mobility Assessment Increased tension: bilateral plantar fascia (L>R) PT-OP-G Mobility & Gait Start: 06/01/18 14:37 Freq: Status: Active Protocol: Document 06/01/18 12:40 RCC (Rec: 06/01/18 15:13 RCC [email or web address]) OP Gait Assessment Comments Gait Comments knee hyperextension in stance phase B, decreased push-off B PT-OP-J Posture/Palpation/Skin Start: 06/01/18 15:13 Freq: Status: Active Protocol: Document 06/01/18 12:40 RCC (Rec: 06/01/18 15:14 RCC [email or web address]) Posture Evaluation Comments Posture Comments B knee hyperextension, increased genu valgus with squatting. PT-OP-K Range of Motion Start: 06/01/18 14:37 Freq: Status: Active Protocol: Document 06/01/18 12:40 RCC (Rec: 06/01/18 15:13 RCC [email or web address]) Ankle and Foot Goniometric Range of Motion Ankle and Foot Measured in Degrees Right Active Testing Position Supine Dorsiflexion with Knee Flexed 20 Dorsiflexion with Knee Extended 11 Plantarflexion 60 Left Active Testing Position Supine Dorsiflexion with Knee Flexed 19 Dorsiflexion with Knee Extended 9 Plantarflexion 60 PT-OP-L Special Tests Start: 06/01/18 14:37 Freq: Status: Active Protocol: Document 06/01/18 12:40 RCC (Rec: 06/01/18 15:13 RCC [email or web address]) Special Tests Foot/Ankle Special Tests Windlass test Test Results positive B Wilkinson Test Results negative B PT-OP-M Strength Start: 06/01/18 14:37 Freq: Status: Active Protocol: Document 06/01/18 12:40 RCC (Rec: 06/01/18 15:13 RCC [email or web address]) Hip Strength Hip Manual Muscle Testing Right Flexion (L2) 5 Normal Abduction 4 Good Adduction 5 Normal External Rotation 4 Good Internal Rotation 4+ Good+ Left Flexion (L2) 5 Normal Abduction 4- Good- Adduction 5 Normal External Rotation 4 Good Internal Rotation 4+ Good+ Knee Strength Knee Manual Muscle Testing Right Flexion (S2) 4+ Good+ Extension (L3) 5 Normal Left Flexion (S2) 4+ Good+ Extension (L3) 5 Normal Ankle/Foot Strength Ankle and Foot Manual Muscle Testing Right Dorsiflexion (L4) 5 Normal Comments SL heel raise: 8 reps Left Dorsiflexion (L4) 5 Normal Comments SL heel raise: 7 reps PT-OP-Q Treatments Start: 06/01/18 14:37 Freq: Status: Active Protocol: Document 07/21/18 12:35 RCC (Rec: 07/21/18 12:44 RCC [email or web address]) Cardio Equipment Recumbent Elliptical (BiodPreact) Duration (Minutes) 8 Resistance 5 Gym Equipment Cable Column (Body Solid) Leg Curl Resistance 30 lbs Reps/Time x15 Leg Extension Resistance 30 lbs Reps/Time x15 Shuttle Recovery Bilateral Squats Resistance 75 lbs Shuttle Recovery Platform Stable Reps/Time 2x15 Therapeutic Exercises Supine Exercises HS curls Supine Exercise Name HS curl with 55 cm ball Side bilateral 1 Supine Exercise Name bridges Side bilateral Equipment Used 55 cm ball Reps/Minutes 2x10 Standing Exercises heel cord stretch Standing Exercise Name gastroc and soleus stretch Side bilateral Reps/Minutes 2x30 sec each lateral walking Standing Exercise Name resisted lateral, forward, backward walk Side bilateral Resistance royal blue Reps/Minutes 4 laps each Neuro Re-Education Treatment Other Activities heel/toe gait Details forward and backward Reps/Duration 4 min PT-OP-T Assessment and Plan Start: 06/01/18 14:37 Freq: Status: Active Protocol: Document 07/21/18 12:35 RCC (Rec: 07/21/18 12:44 RCC [email or web address]) Physical Therapy Assessment Assessment Summary Assessment Pt with no c/o pain during exercise today, avoided elliptical due to eliciting pain last session. Pt was able to increase resistance on leg extension and hamstring curls , with evident fatigue but no c/o pain. Pt continues to have hip and core weakness, affecting her ability to walk and/or jog outdoors. Physical Therapy Plan Frequency and Duration Frequency of Treatment 2x/Week Duration of Treatment 8 weeks Plan of Care Start Date 06/01/18 Plan of Care End Date 07/27/18 Next Visit Focus/Plan Next Note Type Progress Note Next Visit Plan reassess objective measures
--- NOTE | 2018-07-27 12:00 | PT.OTN ---
Current Diagnoses Plantar fascial fibromatosis (07/27/18) Physical Therapy Treatment Note PT-OP-A Visit Information Start: 06/01/18 14:37 Freq: Status: Active Protocol: Document 07/27/18 12:00 RCC (Rec: 07/27/18 15:02 RCC [email or web address]) Out-Patient Physical Therapy Visit Information Visit Information Visit Type Treatment Note Visit Note G-codes @ 22 Visit Start Time 11:18 Visit Stop Time 12:00 Total Visit Minutes 42 Visit Number 12 Number of MEDICAL ADMINISTRATIVE TECHNICIAN Visits 0 Evaluation Information Evaluation Date 06/01/18 PT-OP-B Current Condition Start: 06/01/18 14:37 Freq: Status: Active Protocol: Document 06/01/18 12:40 RCC (Rec: 06/01/18 15:13 RCC [email or web address]) Current Condition History of Current Condition Onset Date 1 year ago Current Complaints B heel pain, neck pain, deconditioning History of Current Condition Pt is a 43 y/o female presenting to physical therapy with bilateral heel and foot pain, deconditioning, neck pain and pain all over body. She states that pain has actually been decreasing in the bilateral feet since she obtained OTC orthotics for her feet. She also quit jogging which seemed to help decrease pain as well. Pt states she has put on weight due to not being able to walk and jog outside over the past few months (she quit ~2 months ago due to pain in feet). She is motivated to get back to jogging and exercise to decrease overall pain and lose weight. Pain is exacerbated by jogging and walking, decreased with rest and her orthotics. She takes Aleve occasionally for pain control. Her prior level of activity before quitting her jogging and walking program was: 4 days per week, for 30 min, doing a jog/walk combo. Treatment Goals Patient/Caregiver Goals get established HEP, get back to jogging and walking for exercise. Prior Functional Status Baseline Function- Gait no issues, community ambulator without device; able to jog Baseline Function- Recreation/Hobbies walk and jogging outdoors Current Functional Impairments (Reported) Functional Limitations- Mobility/Gait increased pain with walking Functional Limitations- Recreation/ unable to jog or walk for Hobbies exercise. Personal Factors Other Personal Factors That May Effect Bipolar disorder, OA- multiple Therapy/Recovery regions per pt. PT-OP-C Subjective Start: 06/01/18 14:37 Freq: Status: Active Protocol: Document 07/27/18 12:00 RCC (Rec: 07/27/18 15:02 RCC [email or web address]) OP-PT Subjective Patient Comments Patient Comments Pt states she is down in her clothing size since the start of PT. She was able to jog/ walk at her mother's house 3 sets x 50 yards without pain in her feet. She still experiences pain with uneven ground with walking. OP-PT Pain Assessment Location B heel/foot Intensity 0 Scale Used Numeric (1 - 10) Description- Other mild pain with uneven ground PT-OP-F Manual Assessment Start: 06/01/18 14:37 Freq: Status: Active Protocol: Document 06/01/18 12:40 RCC (Rec: 06/01/18 15:13 RCC [email or web address]) Manual Assessments Soft Tissue Assessment Soft Tissue Mobility Assessment Increased tension: bilateral plantar fascia (L>R) PT-OP-G Mobility & Gait Start: 06/01/18 14:37 Freq: Status: Active Protocol: Document 06/01/18 12:40 RCC (Rec: 06/01/18 15:13 RCC [email or web address]) OP Gait Assessment Comments Gait Comments knee hyperextension in stance phase B, decreased push-off B PT-OP-J Posture/Palpation/Skin Start: 06/01/18 15:13 Freq: Status: Active Protocol: Document 06/01/18 12:40 RCC (Rec: 06/01/18 15:14 RCC [email or web address]) Posture Evaluation Comments Posture Comments B knee hyperextension, increased genu valgus with squatting. PT-OP-K Range of Motion Start: 06/01/18 14:37 Freq: Status: Active Protocol: Document 06/01/18 12:40 RCC (Rec: 06/01/18 15:13 RCC [email or web address]) Ankle and Foot Goniometric Range of Motion Ankle and Foot Measured in Degrees Right Active Testing Position Supine Dorsiflexion with Knee Flexed 20 Dorsiflexion with Knee Extended 11 Plantarflexion 60 Left Active Testing Position Supine Dorsiflexion with Knee Flexed 19 Dorsiflexion with Knee Extended 9 Plantarflexion 60 PT-OP-L Special Tests Start: 06/01/18 14:37 Freq: Status: Active Protocol: Document 06/01/18 12:40 RCC (Rec: 06/01/18 15:13 RCC [email or web address]) Special Tests Foot/Ankle Special Tests Windlass test Test Results positive B Wilkinson Test Results negative B PT-OP-M Strength Start: 06/01/18 14:37 Freq: Status: Active Protocol: Document 07/27/18 12:00 RCC (Rec: 07/27/18 15:02 RCC [email or web address]) Hip Strength Hip Manual Muscle Testing Right Flexion (L2) 5 Normal Abduction 4+ Good+ Adduction 5 Normal External Rotation 4+ Good+ Internal Rotation 5 Normal Left Flexion (L2) 5 Normal Abduction 4 Good Adduction 5 Normal External Rotation 4+ Good+ Internal Rotation 4+ Good+ Knee Strength Knee Manual Muscle Testing Right Flexion (S2) 5 Normal Extension (L3) 5 Normal Left Flexion (S2) 5 Normal Extension (L3) 5 Normal Ankle/Foot Strength Ankle and Foot Manual Muscle Testing Right Dorsiflexion (L4) 5 Normal Comments SL heel raise: 20 reps Left Dorsiflexion (L4) 5 Normal Comments SL heel raise: 14 reps PT-OP-Q Treatments Start: 06/01/18 14:37 Freq: Status: Active Protocol: Document 07/27/18 12:00 RCC (Rec: 07/27/18 15:02 RCC [email or web address]) Cardio Equipment Recumbent Elliptical (Biodex) Duration (Minutes) 10 Resistance 5 Gym Equipment Cable Column (Body Solid) Leg Curl Resistance 30 lbs Reps/Time x15 Leg Extension Resistance 30 lbs Reps/Time x15 Shuttle Recovery Unilateral Squats Resistance 50 lbs Shuttle Recovery Platform Stable Reps/Time x15 each Bilateral Squats Resistance 75 lbs Shuttle Recovery Platform Stable Reps/Time 2x15 Therapeutic Exercises Standing Exercises HS stretch Side bilateral Equipment Used stairs Reps/Minutes 2x30 sec each heel cord stretch Standing Exercise Name gastroc and soleus stretch Side bilateral Reps/Minutes 2x30 sec each PT-OP-T Assessment and Plan Start: 06/01/18 14:37 Freq: Status: Active Protocol: Document 07/27/18 12:00 RCC (Rec: 07/27/18 15:02 [facility] [email or web address]) Physical Therapy Assessment Goals LE weakness Impairment LE weakness Short Term Goal (STG) 4+/5 with MMT to improve tolerance to gait and functional mobility. Good progress 07/27/18 STG Duration 4 weeks Half-Way Goal (LTG) 5/5 with MMT to improve tolerance to gait and functional mobility. LTG Duration 8 weeks pain Impairment 2/10 pain in bilateral feet Corner Trimmer Operator Goal (LTG) pt to return to jogging and walking program, 4x/wk for 30 min without c/o pain prior to d/c. LTG Duration 8 weeks Lower Extremity Functional Scale Impairment 44 (55%) LEFS Short Term Goal (STG) 50/80 or greater to demonstrate improvements with functional activities in relation to pain of the bilateral feet. -53/80 on 07/27/18 STG Duration achieved 07/27/18 Half-Way Goal (LTG) 60/80 or greater to demonstrate improvements with functional activities in relation to pain of the bilateral feet. LTG Duration 8 weeks Progress Towards Goals Progress Towards Goals Progressing Toward Goals Assessment Summary Assessment Pt without c/o pain at rest in bilateral feet today, but admits to mild pain with uneven ground/terrain. She is not back to jogging/walking x4 days per week, but was able to perform this for the first time this past week with 3 sets of 50 yards jogging then walking for rest. Pt has been motivated during her time with physical therapy. Her strength has increased in the bilateral hip, knees, and ankle plantarflexors, including now tolerating 20 on the R and 14 on the L with single leg heel raises (only able to perform 8 and 7 reps respectfully at initial examination). Pt would greatly benefit from continued skilled physical therapy to progress toward her established goals, and return to a more active lifestyle without pain to promote continued weight loss. Physical Therapy Plan Frequency and Duration Frequency of Treatment 2x/Week Duration of Treatment 8 weeks Plan of Care Start Date 07/27/18 Plan of Care End Date 09/21/18 Therapeutic Interventions Therapeutic Interventions Aquatic Therapy Gait Training Home Exercise Program Manual Therapy Neuromuscular Re-education Orthotic/Prosthetic Management Patient/Caregiver Education Self-Care/Home Management Soft Tissue Mobilization Taping Therapeutic Activities Therapeutic Exercises Modalities Cold Pack/Ice Massage Hot Packs Ultrasound Next Visit Focus/Plan Next Note Type Treatment Note Next Visit Plan continue to advance LE and core strength, advance toward uneven gait and standing balance as tolerated (careful not to increased B foot/ankle pain).
--- NOTE | 2018-08-03 12:45 | PT.OTN ---
Current Diagnoses Plantar fascial fibromatosis (08/03/18) Physical Therapy Treatment Note PT-OP-A Visit Information Start: 06/01/18 14:37 Freq: Status: Active Protocol: Document 08/03/18 12:45 RCC (Rec: 08/03/18 12:54 RCC [email or web address]) Out-Patient Physical Therapy Visit Information Visit Information Visit Type Treatment Note Visit Note G-codes @ 22 Visit Start Time 12:05 Visit Stop Time 12:45 Total Visit Minutes 40 Visit Number 13 Number of GRINDER TENDER Visits 0 Evaluation Information Evaluation Date 06/01/18 PT-OP-B Current Condition Start: 06/01/18 14:37 Freq: Status: Active Protocol: Document 06/01/18 12:40 RCC (Rec: 06/01/18 15:13 RCC [email or web address]) Current Condition History of Current Condition Onset Date 1 year ago Current Complaints B heel pain, neck pain, deconditioning History of Current Condition Pt is a 43 y/o female presenting to physical therapy with bilateral heel and foot pain, deconditioning, neck pain and pain all over body. She states that pain has actually been decreasing in the bilateral feet since she obtained OTC orthotics for her feet. She also quit jogging which seemed to help decrease pain as well. Pt states she has put on weight due to not being able to walk and jog outside over the past few months (she quit ~2 months ago due to pain in feet). She is motivated to get back to jogging and exercise to decrease overall pain and lose weight. Pain is exacerbated by jogging and walking, decreased with rest and her orthotics. She takes Aleve occasionally for pain control. Her prior level of activity before quitting her jogging and walking program was: 4 days per week, for 30 min, doing a jog/walk combo. Treatment Goals Patient/Caregiver Goals get established HEP, get back to jogging and walking for exercise. Prior Functional Status Baseline Function- Gait no issues, community ambulator without device; able to jog Baseline Function- Recreation/Hobbies walk and jogging outdoors Current Functional Impairments (Reported) Functional Limitations- Mobility/Gait increased pain with walking Functional Limitations- Recreation/ unable to jog or walk for Hobbies exercise. Personal Factors Other Personal Factors That May Effect Bipolar disorder, OA- multiple Therapy/Recovery regions per pt. PT-OP-C Subjective Start: 06/01/18 14:37 Freq: Status: Active Protocol: Document 08/03/18 12:45 RCC (Rec: 08/03/18 12:54 RCC [email or web address]) OP-PT Subjective Patient Comments Patient Comments Pt states she was sick earlier in the week, not feeling as strong today as she normally feels. PT-OP-F Manual Assessment Start: 06/01/18 14:37 Freq: Status: Active Protocol: Document 06/01/18 12:40 RCC (Rec: 06/01/18 15:13 RCC [email or web address]) Manual Assessments Soft Tissue Assessment Soft Tissue Mobility Assessment Increased tension: bilateral plantar fascia (L>R) PT-OP-G Mobility & Gait Start: 06/01/18 14:37 Freq: Status: Active Protocol: Document 06/01/18 12:40 RCC (Rec: 06/01/18 15:13 RCC [email or web address]) OP Gait Assessment Comments Gait Comments knee hyperextension in stance phase B, decreased push-off B PT-OP-J Posture/Palpation/Skin Start: 06/01/18 15:13 Freq: Status: Active Protocol: Document 06/01/18 12:40 RCC (Rec: 06/01/18 15:14 RCC [email or web address]) Posture Evaluation Comments Posture Comments B knee hyperextension, increased genu valgus with squatting. PT-OP-K Range of Motion Start: 06/01/18 14:37 Freq: Status: Active Protocol: Document 06/01/18 12:40 RCC (Rec: 06/01/18 15:13 RCC [email or web address]) Ankle and Foot Goniometric Range of Motion Ankle and Foot Measured in Degrees Right Active Testing Position Supine Dorsiflexion with Knee Flexed 20 Dorsiflexion with Knee Extended 11 Plantarflexion 60 Left Active Testing Position Supine Dorsiflexion with Knee Flexed 19 Dorsiflexion with Knee Extended 9 Plantarflexion 60 PT-OP-L Special Tests Start: 06/01/18 14:37 Freq: Status: Active Protocol: Document 06/01/18 12:40 RCC (Rec: 06/01/18 15:13 RCC [email or web address]) Special Tests Foot/Ankle Special Tests Windlass test Test Results positive B Wilkinson Test Results negative B PT-OP-M Strength Start: 06/01/18 14:37 Freq: Status: Active Protocol: Document 07/27/18 12:00 RCC (Rec: 07/27/18 15:02 RCC [email or web address]) Hip Strength Hip Manual Muscle Testing Right Flexion (L2) 5 Normal Abduction 4+ Good+ Adduction 5 Normal External Rotation 4+ Good+ Internal Rotation 5 Normal Left Flexion (L2) 5 Normal Abduction 4 Good Adduction 5 Normal External Rotation 4+ Good+ Internal Rotation 4+ Good+ Knee Strength Knee Manual Muscle Testing Right Flexion (S2) 5 Normal Extension (L3) 5 Normal Left Flexion (S2) 5 Normal Extension (L3) 5 Normal Ankle/Foot Strength Ankle and Foot Manual Muscle Testing Right Dorsiflexion (L4) 5 Normal Comments SL heel raise: 20 reps Left Dorsiflexion (L4) 5 Normal Comments SL heel raise: 14 reps PT-OP-Q Treatments Start: 06/01/18 14:37 Freq: Status: Active Protocol: Document 08/03/18 12:45 RCC (Rec: 08/03/18 12:54 RCC [email or web address]) Cardio Equipment Recumbent Elliptical ([employer]) Duration (Minutes) 10 Resistance 2-5 Other variable resistance d/t fatigue Gym Equipment Cable Column (Body Solid) Leg Curl Resistance 30 lbs Reps/Time x15 Leg Extension Resistance 30 lbs Reps/Time x15 Shuttle Recovery Unilateral Squats Resistance 50 lbs Shuttle Recovery Platform Stable Reps/Time x15 each Bilateral Squats Resistance 62 lbs Shuttle Recovery Platform Stable Reps/Time 2x15 Therapeutic Ball Reverse leg press Ball Size/Color 55 cm Body Position Supine Reps/Duration 10 Comments L2 band around feet LTR Exercise Details lower trunk rotation Ball Size/Color 55 cm Body Position Supine Reps/Duration 2 min Knee and hip flex/extension Ball Size/Color 55 cm Body Position Supine Reps/Duration 2x20 bridging Ball Size/Color 55 cm Body Position Supine Reps/Duration x15 Therapeutic Exercises Standing Exercises heel cord stretch Standing Exercise Name gastroc and soleus stretch Side bilateral Reps/Minutes 2x30 sec each lateral walking Standing Exercise Name resisted lateral, forward, backward walk Side bilateral Resistance royal blue Reps/Minutes 4 laps each PT-OP-T Assessment and Plan Start: 06/01/18 14:37 Freq: Status: Active Protocol: Document 08/03/18 12:45 RCC (Rec: 08/03/18 12:54 RCC [email or web address]) Physical Therapy Assessment Assessment Summary Assessment Pt did require adjustments to resistance today of the recumbent stepper due to LE fatigue. She had mild pain initially in the L foot prior to treatment, but no c/o pain afterward. Physical Therapy Plan Frequency and Duration Frequency of Treatment 2x/Week Duration of Treatment 8 weeks Plan of Care Start Date 07/27/18 Plan of Care End Date 09/21/18 Next Visit Focus/Plan Next Note Type Treatment Note Next Visit Plan progress core stability, hip and LE strength to progress toward running/recreational activities.
--- NOTE | 2018-08-09 15:52 | PT.OTN ---
Current Diagnoses Plantar fascial fibromatosis (08/09/18) Physical Therapy Treatment Note PT-OP-A Visit Information Start: 06/01/18 14:37 Freq: Status: Active Protocol: Document 08/09/18 11:15 GGD (Rec: 08/09/18 15:51 GGD [email or web address]) Out-Patient Physical Therapy Visit Information Visit Information Visit Type Treatment Note Visit Note G-codes @ 22 Visit Start Time 11:15 Visit Stop Time 11:55 Total Visit Minutes 40 Visit Number 14 Number of SOUND RECORDIST Visits 1 Evaluation Information Evaluation Date 06/01/18 PT-OP-B Current Condition Start: 06/01/18 14:37 Freq: Status: Active Protocol: Document 06/01/18 12:40 RCC (Rec: 06/01/18 15:13 RCC [email or web address]) Current Condition History of Current Condition Onset Date 1 year ago Current Complaints B heel pain, neck pain, deconditioning History of Current Condition Pt is a 43 y/o female presenting to physical therapy with bilateral heel and foot pain, deconditioning, neck pain and pain all over body. She states that pain has actually been decreasing in the bilateral feet since she obtained OTC orthotics for her feet. She also quit jogging which seemed to help decrease pain as well. Pt states she has put on weight due to not being able to walk and jog outside over the past few months (she quit ~2 months ago due to pain in feet). She is motivated to get back to jogging and exercise to decrease overall pain and lose weight. Pain is exacerbated by jogging and walking, decreased with rest and her orthotics. She takes Aleve occasionally for pain control. Her prior level of activity before quitting her jogging and walking program was: 4 days per week, for 30 min, doing a jog/walk combo. Treatment Goals Patient/Caregiver Goals get established HEP, get back to jogging and walking for exercise. Prior Functional Status Baseline Function- Gait no issues, community ambulator without device; able to jog Baseline Function- Recreation/Hobbies walk and jogging outdoors Current Functional Impairments (Reported) Functional Limitations- Mobility/Gait increased pain with walking Functional Limitations- Recreation/ unable to jog or walk for Hobbies exercise. Personal Factors Other Personal Factors That May Effect Bipolar disorder, OA- multiple Therapy/Recovery regions per pt. PT-OP-C Subjective Start: 06/01/18 14:37 Freq: Status: Active Protocol: Document 08/09/18 11:15 GGD (Rec: 08/09/18 15:51 GGD [email or web address]) OP-PT Subjective Patient Comments Patient Comments Pt states she starting to feel better and exercise. PT-OP-F Manual Assessment Start: 06/01/18 14:37 Freq: Status: Active Protocol: Document 06/01/18 12:40 RCC (Rec: 06/01/18 15:13 RCC [email or web address]) Manual Assessments Soft Tissue Assessment Soft Tissue Mobility Assessment Increased tension: bilateral plantar fascia (L>R) PT-OP-G Mobility & Gait Start: 06/01/18 14:37 Freq: Status: Active Protocol: Document 06/01/18 12:40 RCC (Rec: 06/01/18 15:13 RCC [email or web address]) OP Gait Assessment Comments Gait Comments knee hyperextension in stance phase B, decreased push-off B PT-OP-J Posture/Palpation/Skin Start: 06/01/18 15:13 Freq: Status: Active Protocol: Document 06/01/18 12:40 RCC (Rec: 06/01/18 15:14 RCC [email or web address]) Posture Evaluation Comments Posture Comments B knee hyperextension, increased genu valgus with squatting. PT-OP-K Range of Motion Start: 06/01/18 14:37 Freq: Status: Active Protocol: Document 06/01/18 12:40 RCC (Rec: 06/01/18 15:13 RCC [email or web address]) Ankle and Foot Goniometric Range of Motion Ankle and Foot Measured in Degrees Right Active Testing Position Supine Dorsiflexion with Knee Flexed 20 Dorsiflexion with Knee Extended 11 Plantarflexion 60 Left Active Testing Position Supine Dorsiflexion with Knee Flexed 19 Dorsiflexion with Knee Extended 9 Plantarflexion 60 PT-OP-L Special Tests Start: 06/01/18 14:37 Freq: Status: Active Protocol: Document 06/01/18 12:40 RCC (Rec: 06/01/18 15:13 RCC [email or web address]) Special Tests Foot/Ankle Special Tests Windlass test Test Results positive B Wilkinson Test Results negative B PT-OP-M Strength Start: 06/01/18 14:37 Freq: Status: Active Protocol: Document 07/27/18 12:00 RCC (Rec: 07/27/18 15:02 RCC [email or web address]) Hip Strength Hip Manual Muscle Testing Right Flexion (L2) 5 Normal Abduction 4+ Good+ Adduction 5 Normal External Rotation 4+ Good+ Internal Rotation 5 Normal Left Flexion (L2) 5 Normal Abduction 4 Good Adduction 5 Normal External Rotation 4+ Good+ Internal Rotation 4+ Good+ Knee Strength Knee Manual Muscle Testing Right Flexion (S2) 5 Normal Extension (L3) 5 Normal Left Flexion (S2) 5 Normal Extension (L3) 5 Normal Ankle/Foot Strength Ankle and Foot Manual Muscle Testing Right Dorsiflexion (L4) 5 Normal Comments SL heel raise: 20 reps Left Dorsiflexion (L4) 5 Normal Comments SL heel raise: 14 reps PT-OP-Q Treatments Start: 06/01/18 14:37 Freq: Status: Active Protocol: Document 08/09/18 11:15 GGD (Rec: 08/09/18 15:51 GGD [email or web address]) Cardio Equipment Recumbent Elliptical ([employer]) Duration (Minutes) 10 Resistance 2-5 Other variable resistance d/t fatigue Gym Equipment Cable Column (Body Solid) Leg Curl Resistance 30 lbs Reps/Time x15 Leg Extension Resistance 30 lbs Reps/Time x15 Shuttle Recovery Unilateral Squats Resistance 50 lbs Shuttle Recovery Platform Stable Reps/Time x15 each Bilateral Squats Resistance 62 lbs Shuttle Recovery Platform Stable Reps/Time 2x15 Therapeutic Ball Reverse leg press Ball Size/Color 55 cm Body Position Supine Reps/Duration 10 Comments L2 band around feet LTR Exercise Details lower trunk rotation Ball Size/Color 55 cm Body Position Supine Reps/Duration 2 min Knee and hip flex/extension Ball Size/Color 55 cm Body Position Supine Reps/Duration 2x20 bridging Ball Size/Color 55 cm Body Position Supine Reps/Duration x15 Therapeutic Exercises Standing Exercises heel cord stretch Standing Exercise Name gastroc and soleus stretch Side bilateral Reps/Minutes 2x30 sec each lateral walking Standing Exercise Name resisted lateral, forward, backward walk Side bilateral Resistance blue Reps/Minutes 2 laps each PT-OP-T Assessment and Plan Start: 06/01/18 14:37 Freq: Status: Active Protocol: Document 08/09/18 11:15 GGD (Rec: 08/09/18 15:51 GGD [email or web address]) Physical Therapy Assessment Goals LE weakness Impairment LE weakness Short Term Goal (STG) 4+/5 with MMT to improve tolerance to gait and functional mobility. Good progress 07/27/18 STG Duration 4 weeks [facility] Goal (LTG) 5/5 with MMT to improve tolerance to gait and functional mobility. LTG Duration 8 weeks pain Impairment 2/10 pain in bilateral feet Worship Director Goal (LTG) pt to return to jogging and walking program, 4x/wk for 30 min without c/o pain prior to d/c. LTG Duration 8 weeks Lower Extremity Functional Scale Impairment 44 (55%) LEFS Short Term Goal (STG) 50/80 or greater to demonstrate improvements with functional activities in relation to pain of the bilateral feet. -53/80 on 07/27/18 STG Duration achieved 07/27/18 [facility] Goal (LTG) 60/80 or greater to demonstrate improvements with functional activities in relation to pain of the bilateral feet. LTG Duration 8 weeks Assessment Summary Assessment Pt continued to have fatigues with exercise. She need min modification to improve tolerance to exercise. Physical Therapy Plan Frequency and Duration Frequency of Treatment 2x/Week Duration of Treatment 8 weeks Plan of Care Start Date 07/27/18 Plan of Care End Date 09/21/18 Next Visit Focus/Plan Next Note Type Treatment Note Next Visit Plan progress strengthening
--- NOTE | 2018-08-11 16:00 | PT.OTN ---
Current Diagnoses Plantar fascial fibromatosis (08/11/18) Physical Therapy Treatment Note PT-OP-A Visit Information Start: 06/01/18 14:37 Freq: Status: Active Protocol: Document 08/11/18 16:00 RCC (Rec: 08/11/18 16:09 RCC [email or web address]) Out-Patient Physical Therapy Visit Information Visit Information Visit Type Treatment Note Visit Note prog. note @ 22 Visit Start Time 15:18 Visit Stop Time 12:00 Total Visit Minutes 42 Visit Number 15 Number of ENROBING MACHINE CORDER Visits 0 Evaluation Information Evaluation Date 06/01/18 PT-OP-B Current Condition Start: 06/01/18 14:37 Freq: Status: Active Protocol: Document 06/01/18 12:40 RCC (Rec: 06/01/18 15:13 RCC [email or web address]) Current Condition History of Current Condition Onset Date 1 year ago Current Complaints B heel pain, neck pain, deconditioning History of Current Condition Pt is a 43 y/o female presenting to physical therapy with bilateral heel and foot pain, deconditioning, neck pain and pain all over body. She states that pain has actually been decreasing in the bilateral feet since she obtained OTC orthotics for her feet. She also quit jogging which seemed to help decrease pain as well. Pt states she has put on weight due to not being able to walk and jog outside over the past few months (she quit ~2 months ago due to pain in feet). She is motivated to get back to jogging and exercise to decrease overall pain and lose weight. Pain is exacerbated by jogging and walking, decreased with rest and her orthotics. She takes Aleve occasionally for pain control. Her prior level of activity before quitting her jogging and walking program was: 4 days per week, for 30 min, doing a jog/walk combo. Treatment Goals Patient/Caregiver Goals get established HEP, get back to jogging and walking for exercise. Prior Functional Status Baseline Function- Gait no issues, community ambulator without device; able to jog Baseline Function- Recreation/Hobbies walk and jogging outdoors Current Functional Impairments (Reported) Functional Limitations- Mobility/Gait increased pain with walking Functional Limitations- Recreation/ unable to jog or walk for Hobbies exercise. Personal Factors Other Personal Factors That May Effect Bipolar disorder, OA- multiple Therapy/Recovery regions per pt. PT-OP-C Subjective Start: 06/01/18 14:37 Freq: Status: Active Protocol: Document 08/11/18 16:00 RCC (Rec: 08/11/18 16:09 RCC [email or web address]) OP-PT Subjective Patient Comments Patient Comments Pt has had more energy this past week, feeling well overall. PT-OP-F Manual Assessment Start: 06/01/18 14:37 Freq: Status: Active Protocol: Document 06/01/18 12:40 RCC (Rec: 06/01/18 15:13 RCC [email or web address]) Manual Assessments Soft Tissue Assessment Soft Tissue Mobility Assessment Increased tension: bilateral plantar fascia (L>R) PT-OP-G Mobility & Gait Start: 06/01/18 14:37 Freq: Status: Active Protocol: Document 06/01/18 12:40 RCC (Rec: 06/01/18 15:13 RCC [email or web address]) OP Gait Assessment Comments Gait Comments knee hyperextension in stance phase B, decreased push-off B PT-OP-J Posture/Palpation/Skin Start: 06/01/18 15:13 Freq: Status: Active Protocol: Document 06/01/18 12:40 RCC (Rec: 06/01/18 15:14 RCC [email or web address]) Posture Evaluation Comments Posture Comments B knee hyperextension, increased genu valgus with squatting. PT-OP-K Range of Motion Start: 06/01/18 14:37 Freq: Status: Active Protocol: Document 06/01/18 12:40 RCC (Rec: 06/01/18 15:13 RCC [email or web address]) Ankle and Foot Goniometric Range of Motion Ankle and Foot Measured in Degrees Right Active Testing Position Supine Dorsiflexion with Knee Flexed 20 Dorsiflexion with Knee Extended 11 Plantarflexion 60 Left Active Testing Position Supine Dorsiflexion with Knee Flexed 19 Dorsiflexion with Knee Extended 9 Plantarflexion 60 PT-OP-L Special Tests Start: 06/01/18 14:37 Freq: Status: Active Protocol: Document 06/01/18 12:40 RCC (Rec: 06/01/18 15:13 RCC [email or web address]) Special Tests Foot/Ankle Special Tests Windlass test Test Results positive B Wilkinson Test Results negative B PT-OP-M Strength Start: 06/01/18 14:37 Freq: Status: Active Protocol: Document 07/27/18 12:00 RCC (Rec: 07/27/18 15:02 RCC [email or web address]) Hip Strength Hip Manual Muscle Testing Right Flexion (L2) 5 Normal Abduction 4+ Good+ Adduction 5 Normal External Rotation 4+ Good+ Internal Rotation 5 Normal Left Flexion (L2) 5 Normal Abduction 4 Good Adduction 5 Normal External Rotation 4+ Good+ Internal Rotation 4+ Good+ Knee Strength Knee Manual Muscle Testing Right Flexion (S2) 5 Normal Extension (L3) 5 Normal Left Flexion (S2) 5 Normal Extension (L3) 5 Normal Ankle/Foot Strength Ankle and Foot Manual Muscle Testing Right Dorsiflexion (L4) 5 Normal Comments SL heel raise: 20 reps Left Dorsiflexion (L4) 5 Normal Comments SL heel raise: 14 reps PT-OP-Q Treatments Start: 06/01/18 14:37 Freq: Status: Active Protocol: Document 08/11/18 16:00 RCC (Rec: 08/11/18 16:09 RCC [email or web address]) Cardio Equipment Recumbent Elliptical ([employer]) Duration (Minutes) 10 Resistance 5 Gym Equipment Shuttle Recovery Bilateral Heel Raises Resistance 50 lbs Shuttle Recovery Platform Stable Reps/Time 1x20 Unilateral Squats Resistance 50 lbs Shuttle Recovery Platform Stable Reps/Time x15 each Bilateral Squats Resistance 62 lbs Shuttle Recovery Platform Stable Reps/Time 2x15 Therapeutic Exercises Standing Exercises lunges Standing Exercise Name 1/2 lunge onto cervantes foam Side bilateral Reps/Minutes 10 each HS stretch Side bilateral Equipment Used stairs Reps/Minutes 2x30 sec each step up Standing Exercise Name step up forward, down backward on 6 step Side bilateral Reps/Minutes 10 each LE heel cord stretch Standing Exercise Name gastroc and soleus stretch Side bilateral Reps/Minutes 2x30 sec each Gait Training Gait Activity hurdles Description forward, backward, lateral, lateral cross-over Distance/Duration 7 min heel-toe gait Description heel-toe gait- forward and backward Device Used // bars Distance/Duration 5 min PT-OP-T Assessment and Plan Start: 06/01/18 14:37 Freq: Status: Active Protocol: Document 08/11/18 16:00 RCC (Rec: 08/11/18 16:09 RCC [email or web address]) Physical Therapy Assessment Assessment Summary Assessment Pt able to perform lateral cross-over steps with slow speed and no loss of balance on firm surfaces. She fatigues with Shuttle Recovery exercises, but no c/o pain in either feet during session. Physical Therapy Plan Frequency and Duration Frequency of Treatment 2x/Week Duration of Treatment 8 weeks Plan of Care Start Date 07/27/18 Plan of Care End Date 09/21/18 Next Visit Focus/Plan Next Note Type Treatment Note Next Visit Plan progress toward DL light jumping/plyo on Shuttle recovery, resisted walking with sports cord.
--- NOTE | 2018-08-23 15:14 | PT.OTN ---
Current Diagnoses Plantar fascial fibromatosis (08/23/18) Physical Therapy Treatment Note PT-OP-A Visit Information Start: 06/01/18 14:37 Freq: Status: Active Protocol: Document 08/23/18 11:15 GGD (Rec: 08/23/18 15:14 GGD [email or web address]) Out-Patient Physical Therapy Visit Information Visit Information Visit Type Treatment Note Visit Note prog. note @ 22 Visit Start Time 11:15 Visit Stop Time 11:55 Total Visit Minutes 40 Visit Number 16 Number of A P SUPERVISOR Visits 1 Evaluation Information Evaluation Date 06/01/18 PT-OP-B Current Condition Start: 06/01/18 14:37 Freq: Status: Active Protocol: Document 06/01/18 12:40 RCC (Rec: 06/01/18 15:13 RCC [email or web address]) Current Condition History of Current Condition Onset Date 1 year ago Current Complaints B heel pain, neck pain, deconditioning History of Current Condition Pt is a 43 y/o female presenting to physical therapy with bilateral heel and foot pain, deconditioning, neck pain and pain all over body. She states that pain has actually been decreasing in the bilateral feet since she obtained OTC orthotics for her feet. She also quit jogging which seemed to help decrease pain as well. Pt states she has put on weight due to not being able to walk and jog outside over the past few months (she quit ~2 months ago due to pain in feet). She is motivated to get back to jogging and exercise to decrease overall pain and lose weight. Pain is exacerbated by jogging and walking, decreased with rest and her orthotics. She takes Aleve occasionally for pain control. Her prior level of activity before quitting her jogging and walking program was: 4 days per week, for 30 min, doing a jog/walk combo. Treatment Goals Patient/Caregiver Goals get established HEP, get back to jogging and walking for exercise. Prior Functional Status Baseline Function- Gait no issues, community ambulator without device; able to jog Baseline Function- Recreation/Hobbies walk and jogging outdoors Current Functional Impairments (Reported) Functional Limitations- Mobility/Gait increased pain with walking Functional Limitations- Recreation/ unable to jog or walk for Hobbies exercise. Personal Factors Other Personal Factors That May Effect Bipolar disorder, OA- multiple Therapy/Recovery regions per pt. PT-OP-C Subjective Start: 06/01/18 14:37 Freq: Status: Active Protocol: Document 08/23/18 11:15 GGD (Rec: 08/23/18 15:14 GGD [email or web address]) OP-PT Subjective Patient Comments Patient Comments Pt states she had a bad week and didn't do much. PT-OP-F Manual Assessment Start: 06/01/18 14:37 Freq: Status: Active Protocol: Document 06/01/18 12:40 RCC (Rec: 06/01/18 15:13 RCC [email or web address]) Manual Assessments Soft Tissue Assessment Soft Tissue Mobility Assessment Increased tension: bilateral plantar fascia (L>R) PT-OP-G Mobility & Gait Start: 06/01/18 14:37 Freq: Status: Active Protocol: Document 06/01/18 12:40 RCC (Rec: 06/01/18 15:13 RCC [email or web address]) OP Gait Assessment Comments Gait Comments knee hyperextension in stance phase B, decreased push-off B PT-OP-J Posture/Palpation/Skin Start: 06/01/18 15:13 Freq: Status: Active Protocol: Document 06/01/18 12:40 RCC (Rec: 06/01/18 15:14 RCC [email or web address]) Posture Evaluation Comments Posture Comments B knee hyperextension, increased genu valgus with squatting. PT-OP-K Range of Motion Start: 06/01/18 14:37 Freq: Status: Active Protocol: Document 06/01/18 12:40 RCC (Rec: 06/01/18 15:13 RCC [email or web address]) Ankle and Foot Goniometric Range of Motion Ankle and Foot Measured in Degrees Right Active Testing Position Supine Dorsiflexion with Knee Flexed 20 Dorsiflexion with Knee Extended 11 Plantarflexion 60 Left Active Testing Position Supine Dorsiflexion with Knee Flexed 19 Dorsiflexion with Knee Extended 9 Plantarflexion 60 PT-OP-L Special Tests Start: 06/01/18 14:37 Freq: Status: Active Protocol: Document 06/01/18 12:40 RCC (Rec: 06/01/18 15:13 RCC [email or web address]) Special Tests Foot/Ankle Special Tests Windlass test Test Results positive B Wilkinson Test Results negative B PT-OP-M Strength Start: 06/01/18 14:37 Freq: Status: Active Protocol: Document 07/27/18 12:00 RCC (Rec: 07/27/18 15:02 RCC [email or web address]) Hip Strength Hip Manual Muscle Testing Right Flexion (L2) 5 Normal Abduction 4+ Good+ Adduction 5 Normal External Rotation 4+ Good+ Internal Rotation 5 Normal Left Flexion (L2) 5 Normal Abduction 4 Good Adduction 5 Normal External Rotation 4+ Good+ Internal Rotation 4+ Good+ Knee Strength Knee Manual Muscle Testing Right Flexion (S2) 5 Normal Extension (L3) 5 Normal Left Flexion (S2) 5 Normal Extension (L3) 5 Normal Ankle/Foot Strength Ankle and Foot Manual Muscle Testing Right Dorsiflexion (L4) 5 Normal Comments SL heel raise: 20 reps Left Dorsiflexion (L4) 5 Normal Comments SL heel raise: 14 reps PT-OP-Q Treatments Start: 06/01/18 14:37 Freq: Status: Active Protocol: Document 08/23/18 11:15 GGD (Rec: 08/23/18 15:14 GGD [email or web address]) Cardio Equipment Recumbent Elliptical (KO-SU) Duration (Minutes) 10 Resistance 5 Gym Equipment Shuttle Recovery Other- 1 Details Plyo Resistance 25# Reps/Time 2 x 10 Bilateral Heel Raises Resistance 50 lbs Shuttle Recovery Platform Stable Reps/Time 1x20 Unilateral Squats Resistance 50 lbs Shuttle Recovery Platform Stable Reps/Time x15 each Bilateral Squats Resistance 62 lbs Shuttle Recovery Platform Stable Reps/Time 2x15 Sport Cord 1 Exercise Details resisted gait forward, backwards and side step Cord/Resistance red Reps/Duration 3 x 4 Therapeutic Exercises Standing Exercises lunges Standing Exercise Name 1/2 lunge onto cervantes foam Side bilateral Reps/Minutes 10 each HS stretch Side bilateral Equipment Used stairs Reps/Minutes 2x30 sec each step up Standing Exercise Name step up forward, down backward on 6 step Side bilateral Reps/Minutes 10 each LE heel cord stretch Standing Exercise Name gastroc and soleus stretch Side bilateral Reps/Minutes 2x30 sec each Gait Training Gait Activity hurdles Description forward, backward, lateral, lateral cross-over Distance/Duration 7 min heel-toe gait Description heel-toe gait- forward and backward Device Used // bars Distance/Duration 5 min PT-OP-T Assessment and Plan Start: 06/01/18 14:37 Freq: Status: Active Protocol: Document 08/23/18 11:15 GGD (Rec: 08/23/18 15:14 [facility] [email or web address]) Physical Therapy Assessment Assessment Summary Assessment Pt able to progress exercises. She had good tolerance to shuttle plyo. She did fatigue quickly with shuttle. Physical Therapy Plan Frequency and Duration Frequency of Treatment 2x/Week Duration of Treatment 8 weeks Plan of Care Start Date 07/27/18 Plan of Care End Date 09/21/18 Next Visit Focus/Plan Next Note Type Treatment Note Next Visit Plan progress balance and strengthening.
--- NOTE | 2018-08-25 10:28 | PT.OTN ---
Current Diagnoses Plantar fascial fibromatosis (08/25/18) Physical Therapy Treatment Note PT-OP-A Visit Information Start: 06/01/18 14:37 Freq: Status: Active Protocol: Document 08/25/18 10:28 RCC (Rec: 08/25/18 12:00 RCC [email or web address]) Out-Patient Physical Therapy Visit Information Visit Information Visit Type Treatment Note Visit Note prog. note @ 22 Visit Start Time 09:45 Visit Stop Time 10:28 Total Visit Minutes 43 Visit Number 17 Number of JEWELRY SALES ASSOCIATE Visits 0 Evaluation Information Evaluation Date 06/01/18 PT-OP-B Current Condition Start: 06/01/18 14:37 Freq: Status: Active Protocol: Document 06/01/18 12:40 RCC (Rec: 06/01/18 15:13 RCC [email or web address]) Current Condition History of Current Condition Onset Date 1 year ago Current Complaints B heel pain, neck pain, deconditioning History of Current Condition Pt is a 43 y/o female presenting to physical therapy with bilateral heel and foot pain, deconditioning, neck pain and pain all over body. She states that pain has actually been decreasing in the bilateral feet since she obtained OTC orthotics for her feet. She also quit jogging which seemed to help decrease pain as well. Pt states she has put on weight due to not being able to walk and jog outside over the past few months (she quit ~2 months ago due to pain in feet). She is motivated to get back to jogging and exercise to decrease overall pain and lose weight. Pain is exacerbated by jogging and walking, decreased with rest and her orthotics. She takes Aleve occasionally for pain control. Her prior level of activity before quitting her jogging and walking program was: 4 days per week, for 30 min, doing a jog/walk combo. Treatment Goals Patient/Caregiver Goals get established HEP, get back to jogging and walking for exercise. Prior Functional Status Baseline Function- Gait no issues, community ambulator without device; able to jog Baseline Function- Recreation/Hobbies walk and jogging outdoors Current Functional Impairments (Reported) Functional Limitations- Mobility/Gait increased pain with walking Functional Limitations- Recreation/ unable to jog or walk for Hobbies exercise. Personal Factors Other Personal Factors That May Effect Bipolar disorder, OA- multiple Therapy/Recovery regions per pt. PT-OP-C Subjective Start: 06/01/18 14:37 Freq: Status: Active Protocol: Document 08/25/18 10:28 RCC (Rec: 08/25/18 12:00 RCC [email or web address]) OP-PT Subjective Patient Comments Patient Comments Pt c/o fatigue today but willing to participate. PT-OP-F Manual Assessment Start: 06/01/18 14:37 Freq: Status: Active Protocol: Document 06/01/18 12:40 RCC (Rec: 06/01/18 15:13 RCC [email or web address]) Manual Assessments Soft Tissue Assessment Soft Tissue Mobility Assessment Increased tension: bilateral plantar fascia (L>R) PT-OP-G Mobility & Gait Start: 06/01/18 14:37 Freq: Status: Active Protocol: Document 06/01/18 12:40 RCC (Rec: 06/01/18 15:13 RCC [email or web address]) OP Gait Assessment Comments Gait Comments knee hyperextension in stance phase B, decreased push-off B PT-OP-J Posture/Palpation/Skin Start: 06/01/18 15:13 Freq: Status: Active Protocol: Document 06/01/18 12:40 RCC (Rec: 06/01/18 15:14 RCC [email or web address]) Posture Evaluation Comments Posture Comments B knee hyperextension, increased genu valgus with squatting. PT-OP-K Range of Motion Start: 06/01/18 14:37 Freq: Status: Active Protocol: Document 06/01/18 12:40 RCC (Rec: 06/01/18 15:13 RCC [email or web address]) Ankle and Foot Goniometric Range of Motion Ankle and Foot Measured in Degrees Right Active Testing Position Supine Dorsiflexion with Knee Flexed 20 Dorsiflexion with Knee Extended 11 Plantarflexion 60 Left Active Testing Position Supine Dorsiflexion with Knee Flexed 19 Dorsiflexion with Knee Extended 9 Plantarflexion 60 PT-OP-L Special Tests Start: 06/01/18 14:37 Freq: Status: Active Protocol: Document 06/01/18 12:40 RCC (Rec: 06/01/18 15:13 RCC [email or web address]) Special Tests Foot/Ankle Special Tests Windlass test Test Results positive B Wilkinson Test Results negative B PT-OP-M Strength Start: 06/01/18 14:37 Freq: Status: Active Protocol: Document 07/27/18 12:00 RCC (Rec: 07/27/18 15:02 RCC [email or web address]) Hip Strength Hip Manual Muscle Testing Right Flexion (L2) 5 Normal Abduction 4+ Good+ Adduction 5 Normal External Rotation 4+ Good+ Internal Rotation 5 Normal Left Flexion (L2) 5 Normal Abduction 4 Good Adduction 5 Normal External Rotation 4+ Good+ Internal Rotation 4+ Good+ Knee Strength Knee Manual Muscle Testing Right Flexion (S2) 5 Normal Extension (L3) 5 Normal Left Flexion (S2) 5 Normal Extension (L3) 5 Normal Ankle/Foot Strength Ankle and Foot Manual Muscle Testing Right Dorsiflexion (L4) 5 Normal Comments SL heel raise: 20 reps Left Dorsiflexion (L4) 5 Normal Comments SL heel raise: 14 reps PT-OP-Q Treatments Start: 06/01/18 14:37 Freq: Status: Active Protocol: Document 08/25/18 10:28 RCC (Rec: 08/25/18 12:00 RCC [email or web address]) Cardio Equipment Recumbent Elliptical (Biodex) Duration (Minutes) 10 Resistance 5 Gym Equipment Cable Column (Body Solid) Leg Curl Resistance 30 lbs Reps/Time x15 Leg Extension Resistance 30 lbs Reps/Time x15 Shuttle Recovery Unilateral Squats Resistance 50 lbs Shuttle Recovery Platform Stable Reps/Time x15 each Bilateral Squats Resistance 62 lbs Shuttle Recovery Platform Stable Reps/Time 2x15 Therapeutic Ball LTR Exercise Details lower trunk rotation Ball Size/Color 55 cm Body Position Supine Reps/Duration 2 min Knee and hip flex/extension Ball Size/Color 55 cm Body Position Supine Reps/Duration 2x20 bridging Ball Size/Color 55 cm Body Position Supine Reps/Duration 2x15 Therapeutic Exercises Standing Exercises lunges Standing Exercise Name firm Side bilateral Reps/Minutes 10 each HS stretch Side bilateral Equipment Used stairs Reps/Minutes 2x30 sec each heel raise Standing Exercise Name alternating heel and toe raises Side bilateral Comments x20 heel cord stretch Standing Exercise Name gastroc and soleus stretch Side bilateral Reps/Minutes 2x30 sec each Gait Training Gait Activity walking on heels and toes Device Used // bars Distance/Duration 6 laps each heel-toe gait Description heel-toe gait- forward and backward Device Used // bars Distance/Duration 5 min PT-OP-T Assessment and Plan Start: 06/01/18 14:37 Freq: Status: Active Protocol: Document 08/25/18 10:28 [facility] (Rec: 08/25/18 12:00 [facility] [email or web address]) Physical Therapy Assessment Assessment Summary Assessment Pt required intermittent rest breaks today due to fatigue, but no c/o heel pain today. Physical Therapy Plan Frequency and Duration Frequency of Treatment 2x/Week Duration of Treatment 8 weeks Plan of Care Start Date 07/27/18 Plan of Care End Date 09/21/18 Next Visit Focus/Plan Next Note Type Treatment Note Next Visit Plan cont. to advance balance and LE stability, core strengthening
--- NOTE | 2018-08-30 14:14 | PT.OTN ---
Current Diagnoses Plantar fascial fibromatosis (08/30/18) Physical Therapy Treatment Note PT-OP-A Visit Information Start: 06/01/18 14:37 Freq: Status: Active Protocol: Document 08/30/18 14:09 GGD (Rec: 08/30/18 14:14 GGD [email or web address]) Out-Patient Physical Therapy Visit Information Visit Information Visit Type Treatment Note Visit Note prog. note @ 22 Visit Start Time 11:15 Visit Stop Time 11:55 Total Visit Minutes 40 Visit Number 18 Number of PARTITION ASSEMBLY MACHINE OPERATOR Visits 1 Evaluation Information Evaluation Date 06/01/18 PT-OP-B Current Condition Start: 06/01/18 14:37 Freq: Status: Active Protocol: Document 06/01/18 12:40 RCC (Rec: 06/01/18 15:13 RCC [email or web address]) Current Condition History of Current Condition Onset Date 1 year ago Current Complaints B heel pain, neck pain, deconditioning History of Current Condition Pt is a 43 y/o female presenting to physical therapy with bilateral heel and foot pain, deconditioning, neck pain and pain all over body. She states that pain has actually been decreasing in the bilateral feet since she obtained OTC orthotics for her feet. She also quit jogging which seemed to help decrease pain as well. Pt states she has put on weight due to not being able to walk and jog outside over the past few months (she quit ~2 months ago due to pain in feet). She is motivated to get back to jogging and exercise to decrease overall pain and lose weight. Pain is exacerbated by jogging and walking, decreased with rest and her orthotics. She takes Aleve occasionally for pain control. Her prior level of activity before quitting her jogging and walking program was: 4 days per week, for 30 min, doing a jog/walk combo. Treatment Goals Patient/Caregiver Goals get established HEP, get back to jogging and walking for exercise. Prior Functional Status Baseline Function- Gait no issues, community ambulator without device; able to jog Baseline Function- Recreation/Hobbies walk and jogging outdoors Current Functional Impairments (Reported) Functional Limitations- Mobility/Gait increased pain with walking Functional Limitations- Recreation/ unable to jog or walk for Hobbies exercise. Personal Factors Other Personal Factors That May Effect Bipolar disorder, OA- multiple Therapy/Recovery regions per pt. PT-OP-C Subjective Start: 06/01/18 14:37 Freq: Status: Active Protocol: Document 08/30/18 14:09 GGD (Rec: 08/30/18 14:14 GGD [email or web address]) OP-PT Subjective Patient Comments Patient Comments Pt states she is feeling better. PT-OP-F Manual Assessment Start: 06/01/18 14:37 Freq: Status: Active Protocol: Document 06/01/18 12:40 RCC (Rec: 06/01/18 15:13 RCC [email or web address]) Manual Assessments Soft Tissue Assessment Soft Tissue Mobility Assessment Increased tension: bilateral plantar fascia (L>R) PT-OP-G Mobility & Gait Start: 06/01/18 14:37 Freq: Status: Active Protocol: Document 06/01/18 12:40 RCC (Rec: 06/01/18 15:13 RCC [email or web address]) OP Gait Assessment Comments Gait Comments knee hyperextension in stance phase B, decreased push-off B PT-OP-J Posture/Palpation/Skin Start: 06/01/18 15:13 Freq: Status: Active Protocol: Document 06/01/18 12:40 RCC (Rec: 06/01/18 15:14 RCC [email or web address]) Posture Evaluation Comments Posture Comments B knee hyperextension, increased genu valgus with squatting. PT-OP-K Range of Motion Start: 06/01/18 14:37 Freq: Status: Active Protocol: Document 06/01/18 12:40 RCC (Rec: 06/01/18 15:13 RCC [email or web address]) Ankle and Foot Goniometric Range of Motion Ankle and Foot Measured in Degrees Right Active Testing Position Supine Dorsiflexion with Knee Flexed 20 Dorsiflexion with Knee Extended 11 Plantarflexion 60 Left Active Testing Position Supine Dorsiflexion with Knee Flexed 19 Dorsiflexion with Knee Extended 9 Plantarflexion 60 PT-OP-L Special Tests Start: 06/01/18 14:37 Freq: Status: Active Protocol: Document 06/01/18 12:40 RCC (Rec: 06/01/18 15:13 RCC [email or web address]) Special Tests Foot/Ankle Special Tests Windlass test Test Results positive B Wilkinson Test Results negative B PT-OP-M Strength Start: 06/01/18 14:37 Freq: Status: Active Protocol: Document 07/27/18 12:00 RCC (Rec: 07/27/18 15:02 RCC [email or web address]) Hip Strength Hip Manual Muscle Testing Right Flexion (L2) 5 Normal Abduction 4+ Good+ Adduction 5 Normal External Rotation 4+ Good+ Internal Rotation 5 Normal Left Flexion (L2) 5 Normal Abduction 4 Good Adduction 5 Normal External Rotation 4+ Good+ Internal Rotation 4+ Good+ Knee Strength Knee Manual Muscle Testing Right Flexion (S2) 5 Normal Extension (L3) 5 Normal Left Flexion (S2) 5 Normal Extension (L3) 5 Normal Ankle/Foot Strength Ankle and Foot Manual Muscle Testing Right Dorsiflexion (L4) 5 Normal Comments SL heel raise: 20 reps Left Dorsiflexion (L4) 5 Normal Comments SL heel raise: 14 reps PT-OP-Q Treatments Start: 06/01/18 14:37 Freq: Status: Active Protocol: Document 08/30/18 14:09 GGD (Rec: 08/30/18 14:14 GGD [email or web address]) Cardio Equipment Recumbent Elliptical (BiodKickboard) Duration (Minutes) 10 Resistance 5 Gym Equipment Cable Column (Body Solid) Leg Curl Resistance 30 lbs Reps/Time x15 Leg Extension Resistance 30 lbs Reps/Time x15 Shuttle Recovery Other- 1 Details Plyo Resistance 25# Reps/Time 15 Bilateral Heel Raises Resistance 50 lbs Shuttle Recovery Platform Stable Reps/Time 1x20 Unilateral Squats Resistance 50 lbs Shuttle Recovery Platform Stable Reps/Time x15 each Bilateral Squats Resistance 62 lbs Shuttle Recovery Platform Stable Reps/Time 2x15 Therapeutic Exercises Standing Exercises lunges Standing Exercise Name 1/2 lunge onto cervantes foam Side bilateral Reps/Minutes 10 each HS stretch Side bilateral Equipment Used stairs Reps/Minutes 2x30 sec each heel cord stretch Standing Exercise Name gastroc and soleus stretch Side bilateral Reps/Minutes 2x30 sec each Gait Training Gait Activity walking on heels and toes Device Used // bars Distance/Duration 6 laps each heel-toe gait Description heel-toe gait- forward and backward Device Used // bars Distance/Duration 5 min PT-OP-T Assessment and Plan Start: 06/01/18 14:37 Freq: Status: Active Protocol: Document 08/30/18 14:09 GGD (Rec: 08/30/18 14:14 GGD [email or web address]) Physical Therapy Assessment Goals LE weakness Impairment LE weakness Short Term Goal (STG) 4+/5 with MMT to improve tolerance to gait and functional mobility. Good progress 07/27/18 STG Duration 4 weeks Assisted Goal (LTG) 5/5 with MMT to improve tolerance to gait and functional mobility. LTG Duration 8 weeks pain Impairment 2/10 pain in bilateral feet Boy'S Adviser Goal (LTG) pt to return to jogging and walking program, 4x/wk for 30 min without c/o pain prior to d/c. LTG Duration 8 weeks Lower Extremity Functional Scale Impairment 44 (55%) LEFS Short Term Goal (STG) 50/80 or greater to demonstrate improvements with functional activities in relation to pain of the bilateral feet. -53/80 on 07/27/18 STG Duration achieved 07/27/18 Assisted Goal (LTG) 60/80 or greater to demonstrate improvements with functional activities in relation to pain of the bilateral feet. LTG Duration 8 weeks Assessment Summary Assessment Pt improved tolerance to exercise. She had less fatigue and didn't need rest breaks. Physical Therapy Plan Frequency and Duration Frequency of Treatment 2x/Week Duration of Treatment 8 weeks Plan of Care Start Date 07/27/18 Plan of Care End Date 09/21/18 Next Visit Focus/Plan Next Note Type Treatment Note Next Visit Plan cont. to advance balance and LE stability, core strengthening
--- NOTE | 2018-09-01 09:45 | PT.OTN ---
Current Diagnoses Plantar fascial fibromatosis (09/01/18) Physical Therapy Treatment Note PT-OP-A Visit Information Start: 06/01/18 14:37 Freq: Status: Active Protocol: Document 09/01/18 09:45 RCC (Rec: 09/01/18 10:30 [email or web address]) Out-Patient Physical Therapy Visit Information Visit Information Visit Type Treatment Note Visit Note prog. note @ 22 Visit Start Time 09:45 Visit Stop Time 10:25 Total Visit Minutes 40 Visit Number 19 Number of FORKLIFT DRIVER Visits 0 Evaluation Information Evaluation Date 06/01/18 PT-OP-B Current Condition Start: 06/01/18 14:37 Freq: Status: Active Protocol: Document 06/01/18 12:40 RCC (Rec: 06/01/18 15:13 RCC [email or web address]) Current Condition History of Current Condition Onset Date 1 year ago Current Complaints B heel pain, neck pain, deconditioning History of Current Condition Pt is a 43 y/o female presenting to physical therapy with bilateral heel and foot pain, deconditioning, neck pain and pain all over body. She states that pain has actually been decreasing in the bilateral feet since she obtained OTC orthotics for her feet. She also quit jogging which seemed to help decrease pain as well. Pt states she has put on weight due to not being able to walk and jog outside over the past few months (she quit ~2 months ago due to pain in feet). She is motivated to get back to jogging and exercise to decrease overall pain and lose weight. Pain is exacerbated by jogging and walking, decreased with rest and her orthotics. She takes Aleve occasionally for pain control. Her prior level of activity before quitting her jogging and walking program was: 4 days per week, for 30 min, doing a jog/walk combo. Treatment Goals Patient/Caregiver Goals get established HEP, get back to jogging and walking for exercise. Prior Functional Status Baseline Function- Gait no issues, community ambulator without device; able to jog Baseline Function- Recreation/Hobbies walk and jogging outdoors Current Functional Impairments (Reported) Functional Limitations- Mobility/Gait increased pain with walking Functional Limitations- Recreation/ unable to jog or walk for Hobbies exercise. Personal Factors Other Personal Factors That May Effect Bipolar disorder, OA- multiple Therapy/Recovery regions per pt. PT-OP-C Subjective Start: 06/01/18 14:37 Freq: Status: Active Protocol: Document 09/01/18 09:45 RCC (Rec: 09/01/18 10:30 RCC [email or web address]) OP-PT Subjective Patient Comments Patient Comments Pt without pain after previous session, she has not tried running this week due to weather. PT-OP-F Manual Assessment Start: 06/01/18 14:37 Freq: Status: Active Protocol: Document 06/01/18 12:40 RCC (Rec: 06/01/18 15:13 RCC [email or web address]) Manual Assessments Soft Tissue Assessment Soft Tissue Mobility Assessment Increased tension: bilateral plantar fascia (L>R) PT-OP-G Mobility & Gait Start: 06/01/18 14:37 Freq: Status: Active Protocol: Document 06/01/18 12:40 RCC (Rec: 06/01/18 15:13 RCC [email or web address]) OP Gait Assessment Comments Gait Comments knee hyperextension in stance phase B, decreased push-off B PT-OP-J Posture/Palpation/Skin Start: 06/01/18 15:13 Freq: Status: Active Protocol: Document 06/01/18 12:40 RCC (Rec: 06/01/18 15:14 RCC [email or web address]) Posture Evaluation Comments Posture Comments B knee hyperextension, increased genu valgus with squatting. PT-OP-K Range of Motion Start: 06/01/18 14:37 Freq: Status: Active Protocol: Document 06/01/18 12:40 RCC (Rec: 06/01/18 15:13 RCC [email or web address]) Ankle and Foot Goniometric Range of Motion Ankle and Foot Measured in Degrees Right Active Testing Position Supine Dorsiflexion with Knee Flexed 20 Dorsiflexion with Knee Extended 11 Plantarflexion 60 Left Active Testing Position Supine Dorsiflexion with Knee Flexed 19 Dorsiflexion with Knee Extended 9 Plantarflexion 60 PT-OP-L Special Tests Start: 06/01/18 14:37 Freq: Status: Active Protocol: Document 06/01/18 12:40 RCC (Rec: 06/01/18 15:13 RCC [email or web address]) Special Tests Foot/Ankle Special Tests Windlass test Test Results positive B Wilkinson Test Results negative B PT-OP-M Strength Start: 06/01/18 14:37 Freq: Status: Active Protocol: Document 07/27/18 12:00 RCC (Rec: 07/27/18 15:02 RCC [email or web address]) Hip Strength Hip Manual Muscle Testing Right Flexion (L2) 5 Normal Abduction 4+ Good+ Adduction 5 Normal External Rotation 4+ Good+ Internal Rotation 5 Normal Left Flexion (L2) 5 Normal Abduction 4 Good Adduction 5 Normal External Rotation 4+ Good+ Internal Rotation 4+ Good+ Knee Strength Knee Manual Muscle Testing Right Flexion (S2) 5 Normal Extension (L3) 5 Normal Left Flexion (S2) 5 Normal Extension (L3) 5 Normal Ankle/Foot Strength Ankle and Foot Manual Muscle Testing Right Dorsiflexion (L4) 5 Normal Comments SL heel raise: 20 reps Left Dorsiflexion (L4) 5 Normal Comments SL heel raise: 14 reps PT-OP-Q Treatments Start: 06/01/18 14:37 Freq: Status: Active Protocol: Document 09/01/18 09:45 RCC (Rec: 09/01/18 10:30 RCC [email or web address]) Cardio Equipment Recumbent Elliptical (Biodex) Duration (Minutes) 10 Resistance 5 Gym Equipment Cable Column (Body Solid) Leg Curl Resistance 40 lbs Reps/Time x25 Leg Extension Resistance 30 lbs Reps/Time x15 Shuttle Recovery Other- 1 Details Plyo- DL jumps and running SL Resistance 25# Reps/Time 15 Bilateral Heel Raises Resistance 50 lbs Shuttle Recovery Platform Stable Reps/Time 1x20 Unilateral Squats Resistance 50 lbs Shuttle Recovery Platform Stable Reps/Time x15 each Bilateral Squats Resistance 62 lbs Shuttle Recovery Platform Stable Reps/Time 2x15 Therapeutic Exercises Standing Exercises heel raise Standing Exercise Name alternating heel and toe raises Side bilateral Comments x20 heel cord stretch Standing Exercise Name gastroc and soleus stretch Side bilateral Reps/Minutes 2x30 sec each PT-OP-T Assessment and Plan Start: 06/01/18 14:37 Freq: Status: Active Protocol: Document 09/01/18 09:45 RCC (Rec: 09/01/18 10:30 RCC [email or web address]) Physical Therapy Assessment Assessment Summary Assessment Pt able to coordinate SL jumping on Shuttle Recovery to slightly mimic a running activity without complaints. She did increase resistance with leg curls which caused fatigue in her hamstrings. Overall, pt is improving with activity tolerance and demonstrates good pacing of activities. Physical Therapy Plan Frequency and Duration Frequency of Treatment 2x/Week Duration of Treatment 8 weeks Plan of Care Start Date 07/27/18 Plan of Care End Date 09/21/18 Next Visit Focus/Plan Next Note Type Treatment Note Next Visit Plan progression toward return to running.
--- NOTE | 2018-09-08 09:45 | PT.OTN ---
Current Diagnoses Plantar fascial fibromatosis (09/08/18) Physical Therapy Treatment Note PT-OP-A Visit Information Start: 06/01/18 14:37 Freq: Status: Active Protocol: Document 09/08/18 09:45 RCC (Rec: 09/08/18 11:35 RCC [email or web address]) Out-Patient Physical Therapy Visit Information Visit Information Visit Type Treatment Note Visit Note prog. note @ 22 Visit Start Time 09:45 Visit Stop Time 10:26 Total Visit Minutes 41 Visit Number 20 Number of MEDICAL AND SCIENTIFIC ILLUSTRATOR Visits 0 Evaluation Information Evaluation Date 06/01/18 PT-OP-B Current Condition Start: 06/01/18 14:37 Freq: Status: Active Protocol: Document 06/01/18 12:40 RCC (Rec: 06/01/18 15:13 RCC [email or web address]) Current Condition History of Current Condition Onset Date 1 year ago Current Complaints B heel pain, neck pain, deconditioning History of Current Condition Pt is a 43 y/o female presenting to physical therapy with bilateral heel and foot pain, deconditioning, neck pain and pain all over body. She states that pain has actually been decreasing in the bilateral feet since she obtained OTC orthotics for her feet. She also quit jogging which seemed to help decrease pain as well. Pt states she has put on weight due to not being able to walk and jog outside over the past few months (she quit ~2 months ago due to pain in feet). She is motivated to get back to jogging and exercise to decrease overall pain and lose weight. Pain is exacerbated by jogging and walking, decreased with rest and her orthotics. She takes Aleve occasionally for pain control. Her prior level of activity before quitting her jogging and walking program was: 4 days per week, for 30 min, doing a jog/walk combo. Treatment Goals Patient/Caregiver Goals get established HEP, get back to jogging and walking for exercise. Prior Functional Status Baseline Function- Gait no issues, community ambulator without device; able to jog Baseline Function- Recreation/Hobbies walk and jogging outdoors Current Functional Impairments (Reported) Functional Limitations- Mobility/Gait increased pain with walking Functional Limitations- Recreation/ unable to jog or walk for Hobbies exercise. Personal Factors Other Personal Factors That May Effect Bipolar disorder, OA- multiple Therapy/Recovery regions per pt. PT-OP-C Subjective Start: 06/01/18 14:37 Freq: Status: Active Protocol: Document 09/08/18 09:45 RCC (Rec: 09/08/18 11:35 RCC [email or web address]) OP-PT Subjective Patient Comments Patient Comments Pt is feeling much better this week, she is doing her HEP. PT-OP-F Manual Assessment Start: 06/01/18 14:37 Freq: Status: Active Protocol: Document 06/01/18 12:40 RCC (Rec: 06/01/18 15:13 RCC [email or web address]) Manual Assessments Soft Tissue Assessment Soft Tissue Mobility Assessment Increased tension: bilateral plantar fascia (L>R) PT-OP-G Mobility & Gait Start: 06/01/18 14:37 Freq: Status: Active Protocol: Document 06/01/18 12:40 RCC (Rec: 06/01/18 15:13 RCC [email or web address]) OP Gait Assessment Comments Gait Comments knee hyperextension in stance phase B, decreased push-off B PT-OP-J Posture/Palpation/Skin Start: 06/01/18 15:13 Freq: Status: Active Protocol: Document 06/01/18 12:40 RCC (Rec: 06/01/18 15:14 RCC [email or web address]) Posture Evaluation Comments Posture Comments B knee hyperextension, increased genu valgus with squatting. PT-OP-K Range of Motion Start: 06/01/18 14:37 Freq: Status: Active Protocol: Document 06/01/18 12:40 RCC (Rec: 06/01/18 15:13 RCC [email or web address]) Ankle and Foot Goniometric Range of Motion Ankle and Foot Measured in Degrees Right Active Testing Position Supine Dorsiflexion with Knee Flexed 20 Dorsiflexion with Knee Extended 11 Plantarflexion 60 Left Active Testing Position Supine Dorsiflexion with Knee Flexed 19 Dorsiflexion with Knee Extended 9 Plantarflexion 60 PT-OP-L Special Tests Start: 06/01/18 14:37 Freq: Status: Active Protocol: Document 06/01/18 12:40 RCC (Rec: 06/01/18 15:13 RCC [email or web address]) Special Tests Foot/Ankle Special Tests Windlass test Test Results positive B Wilkinson Test Results negative B PT-OP-M Strength Start: 06/01/18 14:37 Freq: Status: Active Protocol: Document 07/27/18 12:00 RCC (Rec: 07/27/18 15:02 RCC [email or web address]) Hip Strength Hip Manual Muscle Testing Right Flexion (L2) 5 Normal Abduction 4+ Good+ Adduction 5 Normal External Rotation 4+ Good+ Internal Rotation 5 Normal Left Flexion (L2) 5 Normal Abduction 4 Good Adduction 5 Normal External Rotation 4+ Good+ Internal Rotation 4+ Good+ Knee Strength Knee Manual Muscle Testing Right Flexion (S2) 5 Normal Extension (L3) 5 Normal Left Flexion (S2) 5 Normal Extension (L3) 5 Normal Ankle/Foot Strength Ankle and Foot Manual Muscle Testing Right Dorsiflexion (L4) 5 Normal Comments SL heel raise: 20 reps Left Dorsiflexion (L4) 5 Normal Comments SL heel raise: 14 reps PT-OP-Q Treatments Start: 06/01/18 14:37 Freq: Status: Active Protocol: Document 09/08/18 09:45 RCC (Rec: 09/08/18 11:35 RCC [email or web address]) Cardio Equipment Recumbent Elliptical (Biodex) Duration (Minutes) 10 Resistance 6 Gym Equipment Cable Column (Body Solid) Leg Curl Resistance 40 lbs Reps/Time x25 Leg Extension Resistance 30 lbs Reps/Time x20 Shuttle Recovery Other- 1 Details Plyo- DL jumps and running SL Resistance 25# Reps/Time 15 Bilateral Heel Raises Resistance 50 lbs Shuttle Recovery Platform Stable Reps/Time 1x20 Unilateral Squats Resistance 50 lbs Shuttle Recovery Platform Stable Reps/Time x15 each Bilateral Squats Resistance 62 lbs Shuttle Recovery Platform Stable Reps/Time x20 Shuttle Balance 1 Details Red- Reps/Duration 8 min Comments WBOS, NBOS, step stance: eyes open, eyes closed and head turns. Therapeutic Exercises Standing Exercises psoas stretch Side bilateral Reps/Minutes 2x30 sec Comments stairs heel cord stretch Standing Exercise Name gastroc and soleus stretch Side bilateral Reps/Minutes 2x30 sec each Neuro Re-Education Treatment Balance Activities SLS Details SL standing Surface firm and blue foam Equipment // bars PT-OP-T Assessment and Plan Start: 06/01/18 14:37 Freq: Status: Active Protocol: Document 09/08/18 09:45 RCC (Rec: 09/08/18 11:35 RCC [email or web address]) Physical Therapy Assessment Assessment Summary Assessment Pt with greater challenge with SLS on the L compared to the R standing on firm ground, increased lateral sway and ankle instability. She tolerated Shuttle Balance without pain today, but mild unsteadiness. Physical Therapy Plan Frequency and Duration Frequency of Treatment 2x/Week Duration of Treatment 8 weeks Plan of Care Start Date 07/27/18 Plan of Care End Date 09/21/18 Next Visit Focus/Plan Next Note Type Treatment Note Next Visit Plan cont. SLS and dynamic stability
--- NOTE | 2018-09-15 10:32 | PT.OTN ---
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) Physical Therapy Treatment Note PT-OP-A Visit Information Start: 06/01/18 14:37 Freq: Status: Active Protocol: Document 09/15/18 10:32 RCC (Rec: 09/15/18 11:17 RCC [email or web address]) Out-Patient Physical Therapy Visit Information Visit Information Visit Type Treatment Note Visit Note prog. note @ 22 Visit Start Time 10:32 Visit Stop Time 11:11 Total Visit Minutes 39 Visit Number 21 Number of WATER PLANT PUMP OPERATOR Visits 0 Evaluation Information Evaluation Date 06/01/18 PT-OP-B Current Condition Start: 06/01/18 14:37 Freq: Status: Active Protocol: Document 06/01/18 12:40 RCC (Rec: 06/01/18 15:13 RCC [email or web address]) Current Condition History of Current Condition Onset Date 1 year ago Current Complaints B heel pain, neck pain, deconditioning History of Current Condition Pt is a 43 y/o female presenting to physical therapy with bilateral heel and foot pain, deconditioning, neck pain and pain all over body. She states that pain has actually been decreasing in the bilateral feet since she obtained OTC orthotics for her feet. She also quit jogging which seemed to help decrease pain as well. Pt states she has put on weight due to not being able to walk and jog outside over the past few months (she quit ~2 months ago due to pain in feet). She is motivated to get back to jogging and exercise to decrease overall pain and lose weight. Pain is exacerbated by jogging and walking, decreased with rest and her orthotics. She takes Aleve occasionally for pain control. Her prior level of activity before quitting her jogging and walking program was: 4 days per week, for 30 min, doing a jog/walk combo. Treatment Goals Patient/Caregiver Goals get established HEP, get back to jogging and walking for exercise. Prior Functional Status Baseline Function- Gait no issues, community ambulator without device; able to jog Baseline Function- Recreation/Hobbies walk and jogging outdoors Current Functional Impairments (Reported) Functional Limitations- Mobility/Gait increased pain with walking Functional Limitations- Recreation/ unable to jog or walk for Hobbies exercise. Personal Factors Other Personal Factors That May Effect Bipolar disorder, OA- multiple Therapy/Recovery regions per pt. PT-OP-C Subjective Start: 06/01/18 14:37 Freq: Status: Active Protocol: Document 09/15/18 10:32 RCC (Rec: 09/15/18 11:17 RCC [email or web address]) OP-PT Subjective Patient Comments Patient Comments Pt reports she is on a new medication, so she is more fatigued than her usual self. PT-OP-F Manual Assessment Start: 06/01/18 14:37 Freq: Status: Active Protocol: Document 06/01/18 12:40 RCC (Rec: 06/01/18 15:13 RCC [email or web address]) Manual Assessments Soft Tissue Assessment Soft Tissue Mobility Assessment Increased tension: bilateral plantar fascia (L>R) PT-OP-G Mobility & Gait Start: 06/01/18 14:37 Freq: Status: Active Protocol: Document 06/01/18 12:40 RCC (Rec: 06/01/18 15:13 RCC [email or web address]) OP Gait Assessment Comments Gait Comments knee hyperextension in stance phase B, decreased push-off B PT-OP-J Posture/Palpation/Skin Start: 06/01/18 15:13 Freq: Status: Active Protocol: Document 06/01/18 12:40 RCC (Rec: 06/01/18 15:14 RCC [email or web address]) Posture Evaluation Comments Posture Comments B knee hyperextension, increased genu valgus with squatting. PT-OP-K Range of Motion Start: 06/01/18 14:37 Freq: Status: Active Protocol: Document 06/01/18 12:40 RCC (Rec: 06/01/18 15:13 RCC [email or web address]) Ankle and Foot Goniometric Range of Motion Ankle and Foot Measured in Degrees Right Active Testing Position Supine Dorsiflexion with Knee Flexed 20 Dorsiflexion with Knee Extended 11 Plantarflexion 60 Left Active Testing Position Supine Dorsiflexion with Knee Flexed 19 Dorsiflexion with Knee Extended 9 Plantarflexion 60 PT-OP-L Special Tests Start: 06/01/18 14:37 Freq: Status: Active Protocol: Document 06/01/18 12:40 RCC (Rec: 06/01/18 15:13 RCC [email or web address]) Special Tests Foot/Ankle Special Tests Windlass test Test Results positive B Wilkinson Test Results negative B PT-OP-M Strength Start: 06/01/18 14:37 Freq: Status: Active Protocol: Document 07/27/18 12:00 RCC (Rec: 07/27/18 15:02 RCC [email or web address]) Hip Strength Hip Manual Muscle Testing Right Flexion (L2) 5 Normal Abduction 4+ Good+ Adduction 5 Normal External Rotation 4+ Good+ Internal Rotation 5 Normal Left Flexion (L2) 5 Normal Abduction 4 Good Adduction 5 Normal External Rotation 4+ Good+ Internal Rotation 4+ Good+ Knee Strength Knee Manual Muscle Testing Right Flexion (S2) 5 Normal Extension (L3) 5 Normal Left Flexion (S2) 5 Normal Extension (L3) 5 Normal Ankle/Foot Strength Ankle and Foot Manual Muscle Testing Right Dorsiflexion (L4) 5 Normal Comments SL heel raise: 20 reps Left Dorsiflexion (L4) 5 Normal Comments SL heel raise: 14 reps PT-OP-Q Treatments Start: 06/01/18 14:37 Freq: Status: Active Protocol: Document 09/15/18 10:32 RCC (Rec: 09/15/18 11:17 RCC [email or web address]) Cardio Equipment Recumbent Elliptical (Giving Assistant) Duration (Minutes) 10 Resistance 6 Gym Equipment Cable Column (Body Solid) Leg Curl Resistance 40 lbs Reps/Time x20 Leg Extension Resistance 30 lbs Reps/Time x20 Shuttle Recovery Unilateral Squats Resistance 50 lbs Shuttle Recovery Platform Stable Reps/Time x15 each Bilateral Squats Resistance 62 lbs Shuttle Recovery Platform Stable Reps/Time x20 Therapeutic Exercises Sidelying Exercises Hip IR and ER Sidelying Exercise Name clamshell and reverse clamshell Side bilateral Resistance L3 Reps/Minutes x15 each Standing Exercises HS stretch Side bilateral Equipment Used stairs Reps/Minutes 2x30 sec each claudia board Standing Exercise Name claudia board calf stretch Side bilateral Reps/Minutes 5 mins lateral walking Standing Exercise Name resisted lateral, forward, backward walk Side bilateral Resistance blue Reps/Minutes 3 laps each PT-OP-T Assessment and Plan Start: 06/01/18 14:37 Freq: Status: Active Protocol: Document 09/15/18 10:32 RCC (Rec: 09/15/18 11:17 RCC [email or web address]) Physical Therapy Assessment Assessment Summary Assessment Pt required more breaks between exercises today, likely due to increased fatigue. She tolerated resistance with hip IR and ER activities, but did require verbal cuing for pelvic positioning. Physical Therapy Plan Frequency and Duration Frequency of Treatment 2x/Week Duration of Treatment 8 weeks Plan of Care Start Date 07/27/18 Plan of Care End Date 09/21/18 Next Visit Focus/Plan Next Note Type Progress Note Next Visit Plan reasses obj measures
--- NOTE | 2018-09-21 10:13 | PT.OPDS ---
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) Provider Visit Care Team Role Provider Type Elizabeth Jones MD Attending Provider Physician Primary Care Provider Specialty: Family Practice Address: [address] [place] [address], [facility] Email: [email or web address] Visit Number Visit Number [id number] Discharge Summary PT-OP-B Current Condition Start: 06/01/18 14:37 Freq: Status: Active Protocol: Document 06/01/18 12:40 RCC (Rec: 06/01/18 15:13 RCC [email or web address]) Current Condition History of Current Condition Onset Date 1 year ago Current Complaints B heel pain, neck pain, deconditioning History of Current Condition Pt is a 43 y/o female presenting to physical therapy with bilateral heel and foot pain, deconditioning, neck pain and pain all over body. She states that pain has actually been decreasing in the bilateral feet since she obtained OTC orthotics for her feet. She also quit jogging which seemed to help decrease pain as well. Pt states she has put on weight due to not being able to walk and jog outside over the past few months (she quit ~2 months ago due to pain in feet). She is motivated to get back to jogging and exercise to decrease overall pain and lose weight. Pain is exacerbated by jogging and walking, decreased with rest and her orthotics. She takes Aleve occasionally for pain control. Her prior level of activity before quitting her jogging and walking program was: 4 days per week, for 30 min, doing a jog/walk combo. Treatment Goals Patient/Caregiver Goals get established HEP, get back to jogging and walking for exercise. Prior Functional Status Baseline Function- Gait no issues, community ambulator without device; able to jog Baseline Function- Recreation/Hobbies walk and jogging outdoors Current Functional Impairments (Reported) Functional Limitations- Mobility/Gait increased pain with walking Functional Limitations- Recreation/ unable to jog or walk for Hobbies exercise. Personal Factors Other Personal Factors That May Effect Bipolar disorder, OA- multiple Therapy/Recovery regions per pt. PT-OP-C Subjective Start: 06/01/18 14:37 Freq: Status: Active Protocol: Document 09/15/18 10:32 RCC (Rec: 02/21/19 11:17 RCC [email or web address]) OP-PT Subjective Patient Comments Patient Comments Pt reports she is on a new medication, so she is more fatigued than her usual self. PT-OP-F Manual Assessment Start: 06/01/18 14:37 Freq: Status: Active Protocol: Document 06/01/18 12:40 RCC (Rec: 06/01/18 15:13 RCC [email or web address]) Manual Assessments Soft Tissue Assessment Soft Tissue Mobility Assessment Increased tension: bilateral plantar fascia (L>R) PT-OP-G Mobility & Gait Start: 06/01/18 14:37 Freq: Status: Active Protocol: Document 06/01/18 12:40 RCC (Rec: 06/01/18 15:13 RCC [email or web address]) OP Gait Assessment Comments Gait Comments knee hyperextension in stance phase B, decreased push-off B PT-OP-J Posture/Palpation/Skin Start: 06/01/18 15:13 Freq: Status: Active Protocol: Document 06/01/18 12:40 RCC (Rec: 06/01/18 15:14 RCC [email or web address]) Posture Evaluation Comments Posture Comments B knee hyperextension, increased genu valgus with squatting. PT-OP-K Range of Motion Start: 06/01/18 14:37 Freq: Status: Active Protocol: Document 06/01/18 12:40 RCC (Rec: 06/01/18 15:13 RCC [email or web address]) Ankle and Foot Goniometric Range of Motion Ankle and Foot Measured in Degrees Right Active Testing Position Supine Dorsiflexion with Knee Flexed 20 Dorsiflexion with Knee Extended 11 Plantarflexion 60 Left Active Testing Position Supine Dorsiflexion with Knee Flexed 19 Dorsiflexion with Knee Extended 9 Plantarflexion 60 PT-OP-L Special Tests Start: 06/01/18 14:37 Freq: Status: Active Protocol: Document 06/01/18 12:40 RCC (Rec: 06/01/18 15:13 RCC [email or web address]) Special Tests Foot/Ankle Special Tests Windlass test Test Results positive B Wilkinson Test Results negative B PT-OP-M Strength Start: 06/01/18 14:37 Freq: Status: Active Protocol: Document 07/27/18 12:00 RCC (Rec: 07/27/18 15:02 RCC [email or web address]) Hip Strength Hip Manual Muscle Testing Right Flexion (L2) 5 Normal Abduction 4+ Good+ Adduction 5 Normal External Rotation 4+ Good+ Internal Rotation 5 Normal Left Flexion (L2) 5 Normal Abduction 4 Good Adduction 5 Normal External Rotation 4+ Good+ Internal Rotation 4+ Good+ Knee Strength Knee Manual Muscle Testing Right Flexion (S2) 5 Normal Extension (L3) 5 Normal Left Flexion (S2) 5 Normal Extension (L3) 5 Normal Ankle/Foot Strength Ankle and Foot Manual Muscle Testing Right Dorsiflexion (L4) 5 Normal Comments SL heel raise: 20 reps Left Dorsiflexion (L4) 5 Normal Comments SL heel raise: 14 reps PT-OP-T Assessment and Plan Start: 06/01/18 14:37 Freq: Status: Active Protocol: Document 09/21/18 10:10 [facility] (Rec: 09/21/18 10:13 [facility] [email or web address]) Physical Therapy Assessment Progress Towards Goals Progress Towards Goals Slow Progress due to Medical Issues Slow Progress - Other Progress Comments pt has made good progress thus far with physical therapy, but medical complexities have caused progress to be somewhat slower as well as weather not allowing the pt to return back to running progam as often as she was prior. Assessment Summary Assessment Pt called into the clinic today, requesting discharge from physical therapy at this time, noting that she is dealing with multiple other medical issues at this time. It is recommended that the pt continue her home exercise program prescribed for her as long it is pain free. Rosey had made good progress thus far with physical therapy, but medical complexities have caused progress to be somewhat slower as well as weather not allowing the pt to return back to running progam as often as she was prior. She will be discharged at this time per her request. Physical Therapy Plan Discharge Physical Therapy Discharge Reasons Patient Request
== END 2018-09-21 12:42 ==
LOC: PHYS 10:30
PROVIDERS: PCP Family Medicine; Visit Provider Family Medicine
DX: M72.2 Plantar fascial fibromatosis (principal)
CPT/HCPCS: 97110; 97112; 97116; 97140; 97161

== ENCOUNTER → 2019-03-13 12:54 | Outpatient (CLI) | payer MEDICARE, MEDICAID, SELFPAY ==
[2019-03-13 13:05] LABS: RBC Urine None Seen (0-5/HPF)
[2019-03-13 13:38] LABS: Appearance Urine UA CLEAR; Bilirubin Urine UA NEGATIVE (NEGATIVE); Color Urine UA YELLOW; Glucose Urine UA NEGATIVE (Negative); Ketones Urine UA NEGATIVE (NEGATIVE); Leukocyte Esterase Urine UA NEGATIVE (NEGATIVE); Nitrite Urine UA NEGATIVE (Negative); Occult Blood Urine UA NEGATIVE (Negative); Protein Urine UA NEGATIVE (Negative); Specific Gravity Urine UA 1.025 (1.000-1.035); Urobilinogen Urine UA 0.2 E.U./dL (0.2)
[2019-03-13 13:49] LABS: Amorphous Sediment Urine 1+; Bacteria Urine Few (2-10); Culture Indicated Urine Cult Not Indicated; Mucus Urine 3+ (Negative); Squamous Epithelial Cell Urine 5-10 /HPF (0-5/HPF); WBC Urine 1-5/HPF (0-5/HPF)
[2019-03-13 13:56] LABS: Add Manual Diff / Slide Review NO; Basophils Absolute Auto 0 /uL (0-100); Basophils Percent Auto 0.4 % (0-2); Eosinophils Absolute Auto 100 /uL (0-450); Eosinophils Percent Auto 1.1 % (2-4); Hematocrit 40.6 % (36-46); Hemoglobin 13.5 g/dL (12.0-16.0); Lymphocytes Absolute Auto 2500 /uL (1100-4500); Lymphocytes Percent Auto 26.6 % (25-40); Mean Corpuscular HGB Conc 33.2 % (30-36); Mean Corpuscular Hemoglobin 28.2 PG (26-34); Mean Corpuscular Volume 85.1 fL (80-100); Monocytes Absolute Auto 500 /uL (0-900); Monocytes Percent Auto 5.6 % (3-14); Neutrophils Absolute Auto 6300 /uL (1500-7000); Neutrophils Percent Auto 66.3 % (50-75); Platelet Count 368 X10^3/uL (150-400); Red Blood Cell Count 4.78 X10^6/uL (4.0-5.2); Red Cell Distribution Width 14.6 % (11.6-14.8); White Blood Cell Count 9.5 X10^3/uL (4.5-11.0)
[2019-03-13 14:04] LABS: Hemoglobin A1C% w Est Avg Glu 5.3 % (4.0-6.0)
[2019-03-13 14:26] LABS: Alanine Aminotransferase 18 IU/L (9-52); Albumin 4.1 g/dL (3.5-5.0); Albumin Globulin Ratio 1.4 (1.0-2.8); Alkaline Phosphatase 81 U/L (38-126); Aspartate Aminotransferase 19 IU/L (14-36); BUN Creatinine Ratio 17.1 (6-22); Bilirubin Total 0.3 mg/dL (0.2-1.3); Blood Urea Nitrogen 12 mg/dL (7-17); Calcium 9.2 mg/dL (8.4-10.2); Carbon Dioxide 28 mmol/L (22-32); Chloride 102 mmol/L (98-107); Cholesterol 193 mg/dL (140-199); Estimated Glomerular Filt Rate > 60.0 mL/min (>60); Globulin 2.9 g/dL (1.7-4.1); Glucose 95 mg/dL (70-100); HDL Cholesterol 52 mg/dL (40-60); HEMOLYSIS < 15 (0-50); LDL Cholesterol Calculated 103 mg/dL (<100); Potassium 4.9 mmol/L (3.4-5.1); Sodium 139 mmol/L (137-145); Triglycerides 189 mg/dL (35-150)
== END ==
PROVIDERS: PCP Internal Medicine Geriatric Medicine; Visit Provider Internal Medicine Geriatric Medicine
DX: R73.01 Impaired fasting glucose (principal); E78.2 Mixed hyperlipidemia
CPT/HCPCS: 36415; 80053; 80061; 81001; 83036; 85025

== ENCOUNTER → 2019-04-26 09:40 | Outpatient (CLI) | payer MEDICARE, MEDICAID, SELFPAY ==
--- NOTE | 2019-04-26 | DI.MG.S_ITS ---
BILATERAL DIGITAL SCREENING MAMMOGRAM 3D/2D WITH CAD: 04/26/2019 CLINICAL: Routine screening. Family history of breast cancer. Comparison is made to exams dated: 04/02/2018 mammogram - [facility], 02/10/2017 mammogram, and 12/13/2014 mammogram - [facility]. The tissue of both breasts is heterogeneously dense. This may lower the sensitivity of mammography. Current study was also evaluated with a Computer Aided Detection (CAD) system. No significant masses, calcifications, or other findings are seen in either breast. There has been no significant interval change. IMPRESSION: NEGATIVE There is no mammographic evidence of malignancy. A 1 year screening mammogram is recommended. This exam was interpreted at Station ID: [id number]. NOTE: For mammograms, a report in lay terms will be sent to the patient. Approximately 15% of breast malignancies will not be visualized mammographically. In the management of a palpable breast mass, a negative mammogram must not discourage biopsy of a clinically suspicious lesion. Electronically Signed By: Hector aguilar/lidia:04/26/2019 17:59:22 letter sent: Normal Exam ACR BI-RADS Category 1: Negative 3341F
== END ==
PROVIDERS: PCP Internal Medicine Geriatric Medicine; Visit Provider Internal Medicine Geriatric Medicine
DX: Z12.31 Encounter for screening mammogram for malignant neoplasm of breast (principal); Z80.3 Family history of malignant neoplasm of breast
CPT/HCPCS: 77063; 77067

== ENCOUNTER → 2019-07-06 09:44 | Outpatient (CLI) | payer MEDICARE, MEDICAID, SELFPAY | PROVIDERS: PCP Internal Medicine Geriatric Medicine; Visit Provider Physician Assistant | DX: J02.9 Acute pharyngitis, unspecified (principal) | CPT/HCPCS: 87070 ==

== ENCOUNTER → 2019-08-11 08:23 | Outpatient (CLI) | payer MEDICARE, MEDICAID, SELFPAY ==
[2019-08-11 10:09] LABS: Hemoglobin A1C% w Est Avg Glu 5.3 % (4.0-6.0)
[2019-08-11 10:16] LABS: BUN Creatinine Ratio 24.3 (6-22); Blood Urea Nitrogen 17 mg/dL (7-17); Calcium 8.8 mg/dL (8.4-10.2); Carbon Dioxide 27 mmol/L (22-32); Chloride 104 mmol/L (98-107); Estimated Glomerular Filt Rate > 60.0 mL/min (>60); Glucose 94 mg/dL (70-100); HEMOLYSIS < 15 (0-50); Potassium 4.4 mmol/L (3.4-5.1); Sodium 140 mmol/L (137-145)
[2019-08-11 10:59] LABS: HIV 1 & 2 Ab/Ag 4th Gen Combo NEGATIVE (NEGATIVE)
== END ==
PROVIDERS: PCP Internal Medicine Geriatric Medicine; Visit Provider Internal Medicine Geriatric Medicine
DX: R73.01 Impaired fasting glucose (principal); B37.0 Candidal stomatitis
CPT/HCPCS: 36415; 80048; 83036; 87389

== ENCOUNTER → 2020-05-11 13:46 | Outpatient (CLI) | payer MEDICARE, MEDICAID, SELFPAY ==
--- NOTE | 2020-05-11 | DI.MG.S_ITS ---
BILATERAL DIGITAL SCREENING MAMMOGRAM 3D/2D WITH CAD: 05/11/2020 CLINICAL: Routine screening. Family history of breast cancer. Comparison is made to exams dated: 04/26/2019 mammogram, 04/02/2018 mammogram - [facility], and 02/10/2017 mammogram - [facility]. The tissue of both breasts is heterogeneously dense. This may lower the sensitivity of mammography. Current study was also evaluated with a Computer Aided Detection (CAD) system. No significant masses, calcifications, or other findings are seen in either breast. There has been no significant interval change. IMPRESSION: NEGATIVE There is no mammographic evidence of malignancy. A 1 year screening mammogram is recommended. This exam was interpreted at Station ID: [id number]. NOTE: For mammograms, a report in lay terms will be sent to the patient. Approximately 15% of breast malignancies will not be visualized mammographically. In the management of a palpable breast mass, a negative mammogram must not discourage biopsy of a clinically suspicious lesion. Electronically Signed By: Shi hawkins/lidia:05/13/2020 12:02:00 letter sent: Normal Exam ACR BI-RADS Category 1: Negative 3341F
== END ==
PROVIDERS: PCP Internal Medicine Geriatric Medicine; Referring Provider Family Medicine; Visit Provider Family Medicine
DX: Z12.31 Encounter for screening mammogram for malignant neoplasm of breast (principal); Z80.3 Family history of malignant neoplasm of breast
CPT/HCPCS: 77063; 77067

== ENCOUNTER → 2020-06-06 10:40 | Outpatient (CLI) | payer MEDICARE, MEDICAID, SELFPAY ==
[2020-06-06 11:39] LABS: Add Manual Diff / Slide Review NO; Basophils Absolute Auto 100 /uL (0-100); Basophils Percent Auto 0.9 % (0-2); Eosinophils Absolute Auto 100 /uL (0-450); Eosinophils Percent Auto 1.7 % (2-4); Hemoglobin 13.4 g/dL (12.0-16.0); Lymphocytes Absolute Auto 2200 /uL (1100-4500); Lymphocytes Percent Auto 24.8 % (25-40); Mean Corpuscular HGB Conc 32.7 % (30-36); Mean Corpuscular Hemoglobin 28.2 PG (26-34); Mean Corpuscular Volume 86.1 fL (80-100); Monocytes Absolute Auto 600 /uL (0-900); Neutrophils Absolute Auto 5900 /uL (1500-7000); Neutrophils Percent Auto 65.6 % (50-75); Platelet Count 318 X10^3/uL (150-400); Red Blood Cell Count 4.76 X10^6/uL (4.0-5.2)
[2020-06-06 11:55] LABS: Hemoglobin A1C% w Est Avg Glu 5.7 % (4.0-6.0)
[2020-06-06 12:00] LABS: Alanine Aminotransferase 18 IU/L (<35); Albumin 4.1 g/dL (3.5-5.0); Albumin Globulin Ratio 1.3 (1.0-2.8); Alkaline Phosphatase 92 U/L (38-126); Aspartate Aminotransferase 27 IU/L (14-36); BUN Creatinine Ratio 23.2 (6-22); Bilirubin Total 0.3 mg/dL (0.2-1.3); Blood Urea Nitrogen 16 mg/dL (7-17); Calcium 8.9 mg/dL (8.4-10.2); Carbon Dioxide 28 mmol/L (22-32); Chloride 106 mmol/L (98-107); Cholesterol 182 mg/dL (140-199); Estimated Glomerular Filt Rate > 60.0 mL/min (>60); Globulin 3.2 g/dL (1.7-4.1); Glucose 92 mg/dL (70-100); HDL Cholesterol 43 mg/dL (40-60); HEMOLYSIS < 15 (0-50); LDL Cholesterol Calculated 114 mg/dL (<100); Potassium 4.5 mmol/L (3.4-5.1); Sodium 137 mmol/L (137-145); Total Protein 7.3 g/dL (6.3-8.2); Triglycerides 124 mg/dL (35-150)
[2020-06-06 12:47] LABS: TSH w/ Reflex to FT4 2.03 uIU/mL (0.47-4.68)
== END ==
PROVIDERS: PCP Internal Medicine Geriatric Medicine; Referring Provider Internal Medicine Geriatric Medicine; Visit Provider Internal Medicine Geriatric Medicine
DX: R73.01 Impaired fasting glucose (principal); E78.2 Mixed hyperlipidemia; R63.5 Abnormal weight gain
CPT/HCPCS: 36415; 80053; 80061; 83036; 84443; 85025

== ENCOUNTER → 2020-12-21 14:54 | Outpatient (CLI) | payer MEDICARE, MEDICAID, SELFPAY ==
--- NOTE | 2020-12-21 14:56 | DI.MRI.S_ITS ---
PROCEDURE: MR KNEE RT WO CON INDICATIONS: Pain in right knee TECHNIQUE: Noncontrast sagittal PD fast spin echo and T2 fast spin echo with fat saturation, sagittal 3-D FLASH with fat saturation; coronal T1 spin echo and PD fast spin echo with fat saturation, and axial PD fast spin echo with fat saturation through the knee. COMPARISON: [facility], CR, XR KNEE ARTHRITIC SERIES RT, 09/24/2020, 10:59. FINDINGS: Image quality: Excellent. Menisci: The medial and lateral menisci demonstrate normal morphology and internal signal. The meniscal root ligaments appear intact. Cruciate ligaments: The anterior and posterior cruciate ligaments appear intact. Medial structures: The medial collateral ligament appears intact. The posterior oblique ligament, semimembranosus tendon insertions, oblique popliteal ligament, and meniscocapsular junction appear intact. Visualized portions of the pes anserinus tendons appear normal. No abnormal bursal fluid. Lateral structures: The lateral collateral ligament, long and short heads of the biceps femoris tendon appear intact. The popliteus tendon appears normal; the popliteofibular ligament appears intact. The posterosuperior and anteroinferior popliteomeniscal fascicles appear intact. The arcuate and fabellofibular ligaments appear intact, on either side of the lateral inferior geniculate artery. Iliotibial band appears normal. Anterior structures: The quadriceps and patellar tendons appear intact. Patellar alignment is normal. No femoral trochlear dysplasia or ventral trochlear prominence. No edema in the infrapatellar fat pad. Bones and cartilage: No bone marrow contusions or fractures. The cartilage of the medial and lateral femorotibial compartments appears normal in thickness. There is focal thinning of articular cartilage in the apex of the patella with reactive changes in the subchondral marrow. Joint space: There is a small joint effusion. No King's cyst. Normal appearing synovial plicae are incidentally noted. IMPRESSION: 1. Patellar chondromalacia. 2. Small joint effusion. Dictated by: Tosha Taylor MD, PhD on 12/23/2020 at 6:07 Approved by: Tosha Taylro MD, PhD on 12/25/2020 at 10:09
== END ==
PROVIDERS: PCP Internal Medicine Geriatric Medicine; Referring Provider Physician Assistant Surgical; Visit Provider Physician Assistant Surgical
DX: M25.561 Pain in right knee (principal)
CPT/HCPCS: 73721

== ENCOUNTER → 2020-12-24 12:14 | Outpatient (CLI) | payer MEDICARE, MEDICAID, SELFPAY ==
--- NOTE | 2020-12-24 12:18 | DI.RAD.S_ITS ---
PROCEDURE: XR CERVICAL SPINE 2V OR 3V INDICATIONS: neck pain, radiates down right arm TECHNIQUE: 3 view(s) of the cervical spine were acquired. COMPARISON: None. FINDINGS: Bones: No fractures or dislocations to the T1 level. The lateral masses of C1 appear intact on the odontoid view. No suspicious bony lesions. Soft tissues: No prevertebral soft tissue swelling. IMPRESSION: No evidence acute bony abnormality of the cervical spine. If clinical suspicion and/or symptoms persist, further assessment with repeat plain films, or advanced imaging (e.g., CT, MRI, or bone scan) may be helpful for further assessment. Dictated by: Neri Middleton M.D. on 12/24/2020 at 15:42 Approved by: Neri Middleton M.D. on 12/24/2020 at 15:43
== END ==
PROVIDERS: PCP Internal Medicine Geriatric Medicine; Referring Provider Chiropractor; Visit Provider Chiropractor
DX: M99.01 Segmental and somatic dysfunction of cervical region (principal); M54.2 Cervicalgia
CPT/HCPCS: 72040

== ENCOUNTER 2020-12-29 16:26 | Emergency (ER) | payer MEDICARE, MEDICAID, SELFPAY ==
[2020-12-29 17:00] VITALS: BP 189/116; PULSE 115; RESP 16; TEMP 36.7; O2SAT 98
--- NOTE | 2020-12-29 17:37 | ED_ITS ---
HPI - Neuro Symptoms/Deficit General Chief Complaint: Neuro Symptoms/Deficit Stated Complaint: numbness in foot and jaw s/p chiro Time Seen by Provider: 12/29/20 17:37 History of Present Illness HPI Narrative: 45-year-old woman with history of schizoaffective disorder bipolar type presents with 5 days of intermittent right-sided lower jaw to of the edge of her lips being numb. She does have a history of right TMJ difficulties and she was concerned that that might be causing the paresthesia. She then was seen by a chiropractor and had a high velocity manipulation done to her neck now after that noticed increasing jaw paresthesia and then some intermittent right foot paresthesia and also notice that her right hand was ?painfully tingly? for of brief episode. She presents looking for reassurance that she has not had a stroke. She complains of no rashes, no fevers, no vomiting diarrhea, abdominal pain, chest pain, dyspnea, headaches, word-finding or cognitive difficulties. On Anticoagulants: No Related Data Home Medications Medication Instructions Recorded Confirmed lorazepam PO 07/06/19 07/06/19 Previous Rx's Medication Instructions Recorded levomefolate calcium 15 mg tablet 15 mg PO DAILY #90 tab 06/14/18 lamotrigine 200 mg tablet 400 mg PO BEDTIME #60 tab 08/10/18 prazosin 1 mg capsule 2 mg PO BEDTIME #60 cap 09/09/18 venlafaxine 150 mg 300 mg PO DAILY #60 cap 09/09/18 capsule,extended release 24 hr venlafaxine 75 mg capsule,extended 75 mg PO QDAY #30 cap 09/09/18 release 24 hr ziprasidone HCl 80 mg capsule 160 mg PO BEDTIME #60 cap 09/09/18 azithromycin 250 mg tablet See Rx Instructions PO .COMPLEX #6 07/06/19 tab Allergies Allergy/AdvReac Type Severity Reaction Status Date / Time codeine Allergy Intermediate HIVES Verified 07/06/19 08:28 grass pollen-perennial rye, Allergy Intermediate unable to Verified 07/06/19 08:28 standar breath properly penicillin G Allergy Intermediate NAUSEA Verified 07/06/19 08:28 rifampin [RIFAMPIN] Allergy Unknown Verified 07/06/19 08:28 Sulfa (Sulfonamide Allergy Unknown Verified 07/06/19 08:28 Antibiotics) [SULFA (SULFONAMIDE ANTIBIOTICS)] Opioids - Morphine Analogues AdvReac Intermediate CAN'T SLEEP Verified 07/06/19 08:28 Review of Systems Review of Systems Narrative: Remainder of complete review of systems is otherwise unremarkable except for that included in the HPI. Hematologic/Lymphatic On Anticoagulants: No Patient History Medical History Abnormal Pap smear of cervix (2009) Anxiety (1998) Chicken pox (1984) Chronic back pain (1999) Foot pain (2014) High-functioning autism spectrum disorder History of heavy periods (2016) History of recurrent ear infection (1999) History of suicide attempt HPV (human papilloma virus) infection (2009) IBS (irritable bowel syndrome) (1998) Irregular periods/menstrual cycles (2016) Schizoaffective disorder, bipolar type Surgical History Anesthesia Status post cholecystectomy (2009) Family History Brother Age: 40 Mental health problem Mother Age: 78 Breast cancer Father Colon cancer Grandfather Bone cancer Grandmother Emphysema of lung Grandfather No problems noted. Grandmother No problems noted. 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 seatbelt use: always helmet use: Yes water heater temp set < 120 deg: Yes working smoke detector in home: Yes fire extinguisher in home: No carbon monox detector in home: Yes firearms in home: No Smoking Status: Former smoker second hand exposure: No alcohol intake: never substance use type: does not use during the past year weight has: decreased > 10 lbs well-balanced diet: daily or most days daily servings fruits/ve-4 caffeine: Yes eating out: rarely or never Type(s) of exercise: walking frequency: 5-6 times per week duration: 15-30 minutes/day additional social history: single Smoking Status: Former smoker alcohol intake frequency: 0-2 drinks per day Substance Use Type: does not use Exam Narrative Exam Narrative: General: Healthy appearing, in no acute distress. Able to give a complete and coherent history. Well-nourished well-developed HEENT: Moist mucous membranes, normal sclera with reactive pupils, right TMJ pain radiating into her ear but able to fully open her jaw. No current right lower face paresthesia and no rashes to suggest zoster. Neck: No JVD, supple Respiratory: Lungs are clear to auscultation, no wheezing no rales no rhonchi. Full and symmetrical air movement Cardiac: Regular rate and rhythm no murmurs no bruits Abdomen: Soft, nontender, good bowel tones, no flank pain Skin: Warm and dry, no rashes Neurologic: Grossly neurologically intact with no obvious asymmetries or abnormalities no active hand or foot paresthesias Extremities: No trauma, well perfused Psych: Cooperative, appropriate insight and affect Initial Vital Signs Initial Vital Signs: Vital Signs Temperature 98.1 F 12/29/20 17:00 Pulse Rate 115 H 12/29/20 17:00 Respiratory Rate 16 12/29/20 17:00 Blood Pressure 189/116 H 12/29/20 17:00 Pulse Oximetry 98 12/29/20 17:00 Course Orders Ordered: ED Orders 12/29/20 18:28 Complete Blood Count AUTO DIFF Stat Comprehensive Metabolic Panel Stat Vital Signs Vital signs: Vital Signs - 8 hr 12/29/20 21:59 Pulse Rate 98 H Respiratory Rate 20 Blood Pressure 126/71 Pulse Oximetry 98 MDM - Neuro Symptoms/Deficit Medical Records Attestation: I reviewed the patient's medical records. Lab Data Attestation: I reviewed the patient's lab results. Result diagrams: 12/29/20 18:28 12/29/20 18:28 Labs: Lab Results 12/29/20 12/29/20 Range/Units 18:28 18:28 WBC 13.3 H (4.5-11.0) X10^3/uL RBC 4.52 (4.0-5.2) X10^6/uL Hgb 12.8 (12.0-16.0) g/dL Hct 39.2 (36-46) % MCV 86.7 (80-100) fL MCH 28.4 (26-34) PG MCHC 32.7 (30-36) % RDW 15.4 H (11.6-14.8) % Plt Count 359 (150-400) X10^3/uL Neut % (Auto) 67.3 (50-75) % Lymph % (Auto) 22.4 L (25-40) % [place] % (Auto) 6.4 (3-14) % Eos % (Auto) 2.4 (2-4) % Baso % (Auto) 1.5 (0-2) % Neut # (Auto) 9000 H (5707-2203) /uL Lymph # (Auto) 3000 (6093-5044) /uL [place] # (Auto) 900 (0-900) /uL Eos # (Auto) 300 (0-450) /uL Baso # (Auto) 200 H (0-100) /uL Sodium 135 L (137-145) mmol/L Potassium 4.0 (3.4-5.1) mmol/L Chloride 102 (98-107) mmol/L Carbon Dioxide 27 (22-32) mmol/L BUN 18 H (7-17) mg/dL Creatinine 0.69 (0.52-1.04) mg/dL Estimated GFR > 60.0 (>60) mL/min BUN/Creatinine Ratio 26.1 H (6-22) Glucose 91 (70-100) mg/dL Calcium 9.3 (8.4-10.2) mg/dL Total Bilirubin < 0.1 L (0.2-1.3) mg/dL AST 36 (14-36) IU/L ALT 46 H (<35) IU/L Alkaline Phosphatase 78 (38-126) U/L Total Protein 7.0 (6.3-8.2) g/dL Albumin 3.9 (3.5-5.0) g/dL Globulin 3.1 (1.7-4.1) g/dL Albumin/Globulin Ratio 1.3 (1.0-2.8) Imaging Data CT angiogram head and neck: Radiologist's Impression: FINDINGS: Image quality: Excellent. BRAIN: CSF spaces: Ventricles are normal in size and shape. Basal cisterns are patent. No extra-axial fluid collections. Brain: No midline shift. No intracranial bleeds or masses. Melton-white matter interface appears intact. Skull and face: Calvarium and facial bones appear intact, without suspicious lesions. Orbits appear normal. Sinuses: Sinuses and mastoids are clear. HEAD CT ANGIOGRAPHY: Anterior circulation: Intracranial internal carotid arteries are normal in size and flow. The flow within the paired anterior cerebral arteries is normal and symmetric. The flow within the middle cerebral arteries is normal and symmetric. The anterior communicating artery is seen. No aneurysms are seen. Posterior circulation: Visualized portions of the vertebral arteries demonstrate normal caliber, and join to form a normal appearing basilar artery. Flow within the posterior cerebral arteries is normal and symmetric. No aneurysms are seen. NECK CT ANGIOGRAPHY: Carotid system: The great vessels demonstrate a conventional anatomy as they arise from the aortic arch. The origins of the common carotid arteries appear patent. The common carotid arteries demonstrate normal caliber and courses. The internal carotid arteries are tortuous. The bifurcation regions are both widely patent. The internal carotid arteries demonstrate normal calibers and courses. Posterior circulation: The origins of the vertebral arteries both appear widely patent. The more superior extracranial portions of both vertebral arteries also demonstrate normal courses and calibers. They join to form a normal appearing basilar artery. Soft tissues: Visualized neck soft tissues demonstrate no suspicious abnormalities. Bones: No suspicious bony lesions. Visualized cervical spine appears normally aligned. IMPRESSION: 1. Normal CT angiogram of the head. 2. Normal CT angiogram of the neck. 3. No acute intracranial abnormality. Any quantitative measurements of stenosis were performed using NASCET criteria. Dictated by: Jules Poon M.D. on 12/29/2020 at 20:12 MDM Narrative Medical decision making narrative: 45-year-old woman with a history of intermittent right-sided paresthesias worse after recent spinal manipulation with significant anxiety over possibility of stroke. CT a of the head neck does not show any brain abnormalities and no evidence of vertebral artery dissection or other abnormalities or complications from recent hyper lost the cervical spine manipulation. Reassurance is given. There is no evidence of zoster. I suspect that the right-sided jaw issue is related to her TMJ joint issue. I do not have a full explanation for the brief episode of tingling in the right hand and at this point the right foot paresthesia has completely resolved. Have suggested that she follow-up with her primary care physician. She is safe for home discharge Discharge Plan Departure Patient Disposition: Home Clinical Impression: Right-sided temporomandibular joint pain-dysfunction syndrome Instructions: DI for Temporomandibular Disorder Activity Restrictions/Additional Instructions: Thank you for coming in today The bit of numbness on the bottom of your face and the intermittent numbness in your hand in your feet certainly is concerning. You had a CT scan of your brain as well as an angiogram of the blood vessels to your brain. All of these tests were absolutely normal. You do not have a brain tumor and you did not have a stroke and you do not have any problems with the arteries supplying blood to your brain. I suspect that the sensation changes to the side of your face are related to your TMJ issues. I would encourage you to follow-up with your primary care physician. I wish you the best Prescriptions: No Action lorazepam PO RF: 0 azithromycin 250 mg tablet See Rx Instructions PO .COMPLEX Qty: 6 RF: 0 levomefolate calcium [L-Methylfolate] 15 mg tablet 15 mg PO DAILY Qty: 90 RF: 3 ziprasidone HCl [Geodon] 80 mg capsule 160 mg PO BEDTIME Qty: 60 RF: 5 venlafaxine [Effexor XR] 75 mg capsule,extended release 24hr 75 mg PO QDAY Qty: 30 RF: 5 venlafaxine [Effexor XR] 150 mg capsule,extended release 24hr 300 mg PO DAILY Qty: 60 RF: 5 prazosin 1 mg capsule 2 mg PO BEDTIME Qty: 60 RF: 2 lamotrigine 200 mg tablet 400 mg PO BEDTIME Qty: 60 RF: 5 Referrals: Rose Arteaga MD [Primary Care Provider] -
--- NOTE | 2020-12-29 18:05 | DI.CT.S_ITS ---
PROCEDURE: CT ANGIO HEAD AND NECK INDICATIONS: intermittent R side paresthesias after chiropractic manipula TECHNIQUE: Pre-contrast 4.5 mm thick sections acquired from the foramen magnum to the vertex. After the administration of intravenous contrast, 1 mm thick sections acquired from the aortic arch through the [place]. Post-contrast 4.5 mm thick sections then re-acquired from the foramen magnum to the vertex. 3-dimensional xjaadzp-zqpcvjafu-djauzgnkmo (MIP) and/or volume rendering reformats were acquired of the central intracranial vasculature and neck separately. COMPARISON: None. FINDINGS: Image quality: Excellent. BRAIN: CSF spaces: Ventricles are normal in size and shape. Basal cisterns are patent. No extra-axial fluid collections. Brain: No midline shift. No intracranial bleeds or masses. Melton-white matter interface appears intact. Skull and face: Calvarium and facial bones appear intact, without suspicious lesions. Orbits appear normal. Sinuses: Sinuses and mastoids are clear. HEAD CT ANGIOGRAPHY: Anterior circulation: Intracranial internal carotid arteries are normal in size and flow. The flow within the paired anterior cerebral arteries is normal and symmetric. The flow within the middle cerebral arteries is normal and symmetric. The anterior communicating artery is seen. No aneurysms are seen. Posterior circulation: Visualized portions of the vertebral arteries demonstrate normal caliber, and join to form a normal appearing basilar artery. Flow within the posterior cerebral arteries is normal and symmetric. No aneurysms are seen. NECK CT ANGIOGRAPHY: Carotid system: The great vessels demonstrate a conventional anatomy as they arise from the aortic arch. The origins of the common carotid arteries appear patent. The common carotid arteries demonstrate normal caliber and courses. The internal carotid arteries are tortuous. The bifurcation regions are both widely patent. The internal carotid arteries demonstrate normal calibers and courses. Posterior circulation: The origins of the vertebral arteries both appear widely patent. The more superior extracranial portions of both vertebral arteries also demonstrate normal courses and calibers. They join to form a normal appearing basilar artery. Soft tissues: Visualized neck soft tissues demonstrate no suspicious abnormalities. Bones: No suspicious bony lesions. Visualized cervical spine appears normally aligned. IMPRESSION: 1. Normal CT angiogram of the head. 2. Normal CT angiogram of the neck. 3. No acute intracranial abnormality. Any quantitative measurements of stenosis were performed using NASCET criteria. Dictated by: Jules Poon M.D. on 12/29/2020 at 20:12 Approved by: Jules Poon M.D. on 12/29/2020 at 20:21
[2020-12-29 18:37] LABS: Add Manual Diff / Slide Review NO; Basophils Absolute Auto 200 /uL (0-100); Basophils Percent Auto 1.5 % (0-2); Eosinophils Absolute Auto 300 /uL (0-450); Eosinophils Percent Auto 2.4 % (2-4); Hematocrit 39.2 % (36-46); Hemoglobin 12.8 g/dL (12.0-16.0); Lymphocytes Absolute Auto 3000 /uL (1100-4500); Lymphocytes Percent Auto 22.4 % (25-40); Mean Corpuscular HGB Conc 32.7 % (30-36); Mean Corpuscular Hemoglobin 28.4 PG (26-34); Mean Corpuscular Volume 86.7 fL (80-100); Monocytes Absolute Auto 900 /uL (0-900); Monocytes Percent Auto 6.4 % (3-14); Neutrophils Absolute Auto 9000 /uL (1500-7000); Neutrophils Percent Auto 67.3 % (50-75); Platelet Count 359 X10^3/uL (150-400); Red Blood Cell Count 4.52 X10^6/uL (4.0-5.2); Red Cell Distribution Width 15.4 % (11.6-14.8); White Blood Cell Count 13.3 X10^3/uL (4.5-11.0)
[2020-12-29 18:51] LABS: Alanine Aminotransferase 46 IU/L (<35); Albumin 3.9 g/dL (3.5-5.0); Albumin Globulin Ratio 1.3 (1.0-2.8); Alkaline Phosphatase 78 U/L (38-126); Aspartate Aminotransferase 36 IU/L (14-36); BUN Creatinine Ratio 26.1 (6-22); Blood Urea Nitrogen 18 mg/dL (7-17); Calcium 9.3 mg/dL (8.4-10.2); Carbon Dioxide 27 mmol/L (22-32); Chloride 102 mmol/L (98-107); Estimated Glomerular Filt Rate > 60.0 mL/min (>60); Globulin 3.1 g/dL (1.7-4.1); Glucose 91 mg/dL (70-100); HEMOLYSIS < 15 (0-50); Sodium 135 mmol/L (137-145)
[2020-12-29 18:56] LABS: Bilirubin Total < 0.1 mg/dL (0.2-1.3)
[2020-12-29 19:13] VITALS: PULSE 94; O2SAT 99
[2020-12-29 19:16] VITALS: BP 141/94; PULSE 94; O2SAT 97
[2020-12-29 21:59] VITALS: BP 126/71; PULSE 98; RESP 20; O2SAT 98
== END 2020-12-29 22:00 | disposition home or self-care (01) ==
PROVIDERS: Emergency Provider Emergency Medicine; PCP Internal Medicine Geriatric Medicine
DX: M26.621 Arthralgia of right temporomandibular joint (principal)
CPT/HCPCS: 36415; 70496; 70498; 80053; 85025; 99284; Q9967

== ENCOUNTER → 2021-05-24 08:52 | Outpatient (CLI) | payer MEDICARE, MEDICAID, SELFPAY ==
--- NOTE | 2021-05-24 08:54 | DI.MG.S_ITS ---
BILATERAL DIGITAL SCREENING MAMMOGRAM 3D/2D WITH CAD: 05/24/2021 CLINICAL: Routine screening. Family history of breast cancer. Comparison is made to exams dated: 05/11/2020 mammogram, 04/26/2019 mammogram, and 04/02/2018 mammogram - [facility]. The tissue of both breasts is heterogeneously dense. This may lower the sensitivity of mammography. Current study was also evaluated with a Computer Aided Detection (CAD) system. No significant masses, calcifications, or other findings are seen in either breast. There has been no significant interval change. IMPRESSION: NEGATIVE There is no mammographic evidence of malignancy. A 1 year screening mammogram is recommended. This exam was interpreted at Station ID: [id number]. NOTE: For mammograms, a report in lay terms will be sent to the patient. Approximately 15% of breast malignancies will not be visualized mammographically. In the management of a palpable breast mass, a negative mammogram must not discourage biopsy of a clinically suspicious lesion. Electronically Signed By: Wesley gray/lidia:05/26/2021 08:20:08 letter sent: Normal Exam ACR BI-RADS Category 1: Negative 3341F
== END ==
PROVIDERS: PCP Internal Medicine Geriatric Medicine; Referring Provider Internal Medicine Geriatric Medicine; Visit Provider Internal Medicine Geriatric Medicine
DX: Z12.31 Encounter for screening mammogram for malignant neoplasm of breast (principal); Z80.3 Family history of malignant neoplasm of breast
CPT/HCPCS: 77063; 77067

== ENCOUNTER → 2021-10-21 07:36 | Outpatient (CLI) | payer MEDICARE, MEDICAID, SELFPAY ==
[2021-10-21 08:10] LABS: Add Manual Diff / Slide Review NO; Basophils Absolute Auto 100 /uL (0-100); Basophils Percent Auto 0.7 % (0-2); Eosinophils Absolute Auto 100 /uL (0-450); Eosinophils Percent Auto 1.2 % (2-4); Hematocrit 39.6 % (36-46); Hemoglobin 13.1 g/dL (12.0-16.0); Lymphocytes Absolute Auto 2200 /uL (1100-4500); Lymphocytes Percent Auto 24.2 % (25-40); Mean Corpuscular Hemoglobin 28.4 PG (26-34); Mean Corpuscular Volume 85.8 fL (80-100); Monocytes Absolute Auto 600 /uL (0-900); Monocytes Percent Auto 6.2 % (3-14); Neutrophils Absolute Auto 6200 /uL (1500-7000); Neutrophils Percent Auto 67.7 % (50-75); Platelet Count 345 X10^3/uL (150-400); Red Blood Cell Count 4.62 X10^6/uL (4.0-5.2); Red Cell Distribution Width 14.6 % (11.6-14.8); White Blood Cell Count 9.2 X10^3/uL (4.5-11.0)
[2021-10-21 08:13] LABS: Hemoglobin A1C% w Est Avg Glu 5.6 % (4.0-6.0)
[2021-10-21 09:20] LABS: Alanine Aminotransferase 18 IU/L (<35); Albumin 4.1 g/dL (3.5-5.0); Albumin Globulin Ratio 1.3 (1.0-2.8); Alkaline Phosphatase 78 U/L (38-126); Aspartate Aminotransferase 23 IU/L (14-36); BUN Creatinine Ratio 18.2 (6-22); Bilirubin Total 0.3 mg/dL (0.2-1.3); Blood Urea Nitrogen 14 mg/dL (7-17); Calcium 8.8 mg/dL (8.4-10.2); Carbon Dioxide 27 mmol/L (22-32); Chloride 105 mmol/L (98-107); Cholesterol 224 mg/dL (140-199); Estimated Glomerular Filt Rate > 60.0 mL/min (>60); Globulin 3.1 g/dL (1.7-4.1); Glucose 94 mg/dL (70-100); HDL Cholesterol 45 mg/dL (40-60); HEMOLYSIS < 15 (0-50); LDL Cholesterol Calculated 142 mg/dL (<100); Potassium 4.3 mmol/L (3.4-5.1); Sodium 138 mmol/L (137-145); Total Protein 7.2 g/dL (6.3-8.2); Triglycerides 186 mg/dL (35-150)
[2021-10-21 09:46] LABS: TSH w/ Reflex to FT4 2.43 uIU/mL (0.47-4.68)
[2021-10-21 10:03] LABS: HIV 1 & 2 Ab/Ag 4th Gen Combo NEGATIVE (NEGATIVE); Hep C Virus Ab w/Reflex Quant NEGATIVE s/c (NEGATIVE)
[2021-10-22 06:22] LABS: RPR Screen Non Reactive (Non Reactive)
[2021-10-22 19:50] LABS: HSV 2 IGG AB < 0.91 index (0.00-0.90); HSV1IGG < 0.91 index (0.00-0.90)
== END ==
PROVIDERS: PCP Internal Medicine Geriatric Medicine; Referring Provider Internal Medicine Geriatric Medicine; Visit Provider Internal Medicine Geriatric Medicine
DX: R73.01 Impaired fasting glucose (principal); Z00.00 Encounter for general adult medical examination without abnormal findings; Z11.3 Encounter for screening for infections with a predominantly sexual mode of transmission
CPT/HCPCS: 36415; 80053; 80061; 83036; 84443; 85025; 86592; 86695; 86696; 86803; 87389

== ENCOUNTER → 2022-04-11 12:24 | Outpatient (CLI) | payer OTHER, MEDICARE, MEDICAID, SELFPAY ==
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
== END ==
PROVIDERS: PCP Internal Medicine Geriatric Medicine; Referring Provider Internal Medicine Geriatric Medicine; Visit Provider Internal Medicine Geriatric Medicine
DX: M25.511 Pain in right shoulder (principal); M25.512 Pain in left shoulder; Z87.828 Personal history of other (healed) physical injury and trauma
CPT/HCPCS: 73030

== ENCOUNTER → 2022-05-20 15:55 | Outpatient (CLI) | payer OTHER, MEDICARE, MEDICAID, SELFPAY ==
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
== END ==
PROVIDERS: PCP Internal Medicine Geriatric Medicine; Referring Provider Internal Medicine Geriatric Medicine; Visit Provider Internal Medicine Geriatric Medicine
DX: M50.322 Other cervical disc degeneration at C5-C6 level (principal); M48.02 Spinal stenosis, cervical region; Z87.828 Personal history of other (healed) physical injury and trauma
CPT/HCPCS: 72141

== ENCOUNTER → 2022-05-29 11:01 | Outpatient (CLI) | payer OTHER, MEDICARE, MEDICAID, SELFPAY ==
--- NOTE | 2022-05-29 | DI.RAD.S_ITS ---
PROCEDURE: XR THORACIC SPINE 3V INDICATIONS: CHRONIC PAIN TECHNIQUE: 3 views of the thoracic spine were acquired. COMPARISON: None. FINDINGS: Bones: No fractures or dislocations. No suspicious bony lesions. Twelve pairs of ribs are noted, and appear intact where visualized. Soft tissues: No paravertebral stripe thickening. 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 Dictated by: Sascha Gonzalez M.D. on 05/29/2022 at 13:42 Approved by: Sascha Gonzalez M.D. on 05/29/2022 at 13:43
== END ==
LOC: RESP 11:04 → RAD 06-01 09:11
PROVIDERS: PCP Internal Medicine Geriatric Medicine; Referring Provider Internal Medicine Geriatric Medicine; Visit Provider Internal Medicine Geriatric Medicine
DX: M51.34 Other intervertebral disc degeneration, thoracic region (principal); G89.29 Other chronic pain
CPT/HCPCS: 72072

== ENCOUNTER → 2022-08-11 11:52 | Outpatient (CLI) | payer MEDICARE, MEDICAID, SELFPAY ==
--- NOTE | 2022-08-11 11:55 | DI.MG.S_ITS ---
BILATERAL DIGITAL SCREENING MAMMOGRAM 3D/2D WITH CAD: 08/11/2022 CLINICAL: Routine screening. Family history of breast cancer. Comparison is made to exams dated: 05/24/2021 mammogram, 05/11/2020 mammogram, and 04/26/2019 mammogram - [facility]. Both breasts are heterogeneously dense, which may obscure small masses (category c / 51-75% glandular tissue). Current study was also evaluated with a Computer Aided Detection (CAD) system. No significant masses, calcifications, or other findings are seen in either breast. There has been no significant interval change. IMPRESSION: NEGATIVE There is no mammographic evidence of malignancy. A 1 year screening mammogram is recommended. Based on Tyrer-Cuzick model (a risk assessment model), the patient's lifetime risk is 26.6% and her 10 year risk is 5.2%. If a patient has an elevated risk, a more comprehensive evaluation should be considered and/or a referral to a genetic counselor. The [place] [employer], [employer] [place] [employer], and NCCN Guidelines advise the consideration of Breast MRI as an adjunct to screening mammography in patients whose Lifetime risk to develop breast cancer is 20% or higher. This exam was interpreted at Station ID: [id number]. NOTE: For mammograms, a report in lay terms will be sent to the patient. Approximately 15% of breast malignancies will not be visualized mammographically. In the management of a palpable breast mass, a negative mammogram must not discourage biopsy of a clinically suspicious lesion. Electronically Signed By: Wesley gray/lidia:08/11/2022 17:37:30 letter sent: Normal Exam ACR BI-RADS Category 1: Negative 3341F
== END ==
PROVIDERS: PCP Internal Medicine Geriatric Medicine; Referring Provider Internal Medicine Geriatric Medicine; Visit Provider Internal Medicine Geriatric Medicine
DX: Z12.31 Encounter for screening mammogram for malignant neoplasm of breast (principal); Z80.3 Family history of malignant neoplasm of breast
CPT/HCPCS: 77063; 77067

== ENCOUNTER → 2023-09-07 07:05 | Outpatient (CLI) | payer MEDICARE, MEDICAID, SELFPAY ==
[2023-09-07 07:57] LABS: Add Manual Diff / Slide Review NO; Basophils Absolute Auto 100 /uL (0-100); Basophils Percent Auto 0.6 % (0-2); Eosinophils Absolute Auto 100 /uL (0-450); Eosinophils Percent Auto 1.5 % (2-4); Hematocrit 42.1 % (36-46); Lymphocytes Absolute Auto 2300 /uL (1100-4500); Lymphocytes Percent Auto 26.4 % (25-40); Mean Corpuscular HGB Conc 33.3 % (30-36); Mean Corpuscular Hemoglobin 28.6 PG (26-34); Mean Corpuscular Volume 85.9 fL (80-100); Monocytes Absolute Auto 500 /uL (0-900); Monocytes Percent Auto 5.1 % (3-14); Neutrophils Absolute Auto 5900 /uL (1500-7000); Neutrophils Percent Auto 66.4 % (50-75); Platelet Count 392 X10^3/uL (150-400); Red Cell Distribution Width 14.1 % (11.6-14.8); White Blood Cell Count 8.9 X10^3/uL (4.5-11.0)
[2023-09-07 08:22] LABS: Alanine Aminotransferase 17 IU/L (<35); Albumin 4.1 g/dL (3.5-5.0); Albumin Globulin Ratio 1.4 (1.0-2.8); Alkaline Phosphatase 82 U/L (38-126); Aspartate Aminotransferase 20 IU/L (14-36); BUN Creatinine Ratio 20.8 (6-22); Bilirubin Total 0.5 mg/dL (0.2-1.3); Blood Urea Nitrogen 15 mg/dL (7-17); Calcium 9.4 mg/dL (8.4-10.2); Carbon Dioxide 22 mmol/L (22-32); Chloride 106 mmol/L (98-107); Cholesterol 216 mg/dL (140-199); Estimated Glomerular Filt Rate > 60 mL/min (>60); Globulin 2.9 g/dL (1.7-4.1); Glucose 108 mg/dL (70-100); HDL Cholesterol 54 mg/dL (40-60); HEMOLYSIS < 15 (0-50); LDL Cholesterol Calculated 129 mg/dL (<100); Potassium 4.9 mmol/L (3.4-5.1); Sodium 138 mmol/L (137-145); Triglycerides 165 mg/dL (35-150)
[2023-09-08 12:09] LABS: x Labcorp Estim. Avg Glu (eAG) 114 mg/dL (.); x Labcorp Hemoglobin A1c 5.6 % (4.8-5.6)
== END ==
PROVIDERS: PCP Student in an Organized Health Care Education/Training Program; Referring Provider Student in an Organized Health Care Education/Training Program; Visit Provider Student in an Organized Health Care Education/Training Program
DX: Z79.899 Other long term (current) drug therapy (principal)
CPT/HCPCS: 36415; 80053; 80061; 83036; 84443; 85025

== ENCOUNTER → 2023-09-18 10:43 | Outpatient (CLI) | payer MEDICARE, MEDICAID, SELFPAY ==
--- NOTE | 2023-09-18 10:45 | DI.MG.S_ITS ---
BILATERAL DIGITAL SCREENING MAMMOGRAM 3D/2D WITH CAD: 09/18/2023 CLINICAL: Routine screening. Family history of breast cancer. Comparison is made to exams dated: 08/11/2022 mammogram, 05/24/2021 mammogram, and 05/11/2020 mammogram - [facility]. Both breasts are heterogeneously dense, which may obscure small masses (category c / 51-75% glandular tissue). Current study was also evaluated with a Computer Aided Detection (CAD) system. No significant masses, calcifications, or other findings are seen in either breast. There has been no significant interval change. IMPRESSION: NEGATIVE There is no mammographic evidence of malignancy. A 1 year screening mammogram is recommended. Based on Tyrer-Cuzick model (a risk assessment model), the patient's lifetime risk is 26.5% and her 10 year risk is 5.5%. If a patient has an elevated risk, a more comprehensive evaluation should be considered and/or a referral to a genetic counselor. The [place] [employer], [employer] [employer], and NCCN Guidelines advise the consideration of Breast MRI as an adjunct to screening mammography in patients whose Lifetime risk to develop breast cancer is 20% or higher. This exam was interpreted at Station ID: [id number]. NOTE: For mammograms, a report in lay terms will be sent to the patient. Approximately 15% of breast malignancies will not be visualized mammographically. In the management of a palpable breast mass, a negative mammogram must not discourage biopsy of a clinically suspicious lesion. Electronically Signed By: Bhakti Whittington M.D., PH.D bird/lidia:09/20/2023 09:17:13 letter sent: Normal Exam ACR BI-RADS Category 1: Negative 3341F
== END ==
PROVIDERS: PCP Student in an Organized Health Care Education/Training Program; Referring Provider Student in an Organized Health Care Education/Training Program; Visit Provider Student in an Organized Health Care Education/Training Program
DX: Z12.31 Encounter for screening mammogram for malignant neoplasm of breast (principal); Z80.3 Family history of malignant neoplasm of breast; R92.333 Mammographic heterogeneous density, bilateral breasts
CPT/HCPCS: 77063; 77067

== ENCOUNTER 2023-12-29 10:16 | Outpatient (RCR) | payer MEDICARE, MEDICAID, SELFPAY ==
--- NOTE | 2023-12-29 16:00 | OT.OP.EVAL ---
Visit Care Team Role Provider Type Malu Lowe MD Attending Provider Physician Family Provider Primary Care Provider Referring Provider Specialty: Family Practice Obstetrics Address: [address] [place] [address], [id number] Email: [email or web address] Occupational Therapy Initial Evaluation OT Outpatient Adult Evaluation Start: 12/29/23 15:36 Freq: Status: Active Protocol: Document 12/29/23 15:37 AMS (Rec: 12/29/23 16:12 AMS [id number]) General Information - Adult Plan of Care Dates 12/29/23 - 02/09/24 Insurance Information [facility]; No visit limit; Therapist Only Treatment Setting Outpatient Care Note Type Initial Evaluation Referring Physician Malu Lowe MD Reason for Referral Pain in Hands Identification Confirmed Yes Identification Confirmed By Self Goals Treatment Initiated HEP. See below for details. Senior Care Goals 1. Rosey will be modified independent with execution of home exercise program utilizing provided written and visual instructions as needed . 2. Rosey will verbalize 100% understanding of basic joint protection principles referencing provided written and visual materials as needed . Assessment/Plan Treatment Assessment Rosey is 48 y.o.; R hand dominant; referred to outpatient OT d/t pain presenting in both hands. Medical history is significant for arthritis; back, neck, and jaw pain; depression; falls; psychological disorder; gallbladder removal. 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 She uses an easel with painting. She reports avoiding bilateral wrist flexion w/ typing. QuickDASH UE Outcome Measure Score = 40.91 (difficulty sleeping x 2 days last week); QuickDASH Work Module Score = 31.25. Whole Body Pain Assessment Grid completed; indication of 9 out of 10 on pain scale relative to distal B UEs; Wrist/Hand Pain Assessment Grid completed; indication of 9 out of 10 on pain scale relative to distal B UEs for several days. Discomfort reported of bilateral dorsal MPJs and w/ palpation of bilateral CMCJs. (-) wearing of hand braces; took Ibuprofen last week for pain management. Goniometer measurements: 0-75 degrees active R wrist ext vs 0-68 degrees active L wrist ext. 0-45 degrees active R wrist flex vs 0-55 degrees active L wrist flex. 0-30 degrees active R wrist UD vs 0 -27 degrees active L wrist UD. 0-0 degrees active R wrist RD vs 0-3 degrees active L wrist RD. 0-50 degrees bilateral palmar radial thumb abduction; 0-45 degrees R thumb radial abduction vs 0-40 degrees L thumb radial abduction. 0-30 degrees active R MPJ flex vs 0 -45 degrees active L MPJ flex. Tendency into hyperextension of L MPJ vs R; though, intermittent hyperextension noted. Positioning of IPJs intermittently in hyperextension as well; 0-55 degrees R IPJ hyperextension vs 0-65 degrees L IPJ hyperextension. Report of tightness bilaterally w/ formation of hook fist(s) bilaterally. MMT as follows: 4+/5 R wrist ext vs 4/5 L wrist ext. 4/5 R wrist flex vs 3+/5 L wrist flex. 4+/5 R wrist UD vs 4+/5 L wrist UD. 3+/[address] vs 3+/[address] Dynamometer II Can Closing Machine Operator Strength Testing Results were as follows: 13.0 # of force R administrative services officer (compared to 45-49 y.o. women 62.2 +/- 15. 1) vs 30.0# of force L administrative services officer ( compared to 45-49 y.o. women 56.0 +/- 12.7). Pinchometer Strength Testing Results were as follows: 11.5# of force R lateral martínez pinch (compared to 45-49 y.o. women 17.6 +/- 16. 6) vs 9.0# of force L lateral martínez pinch (compared to 45-49 y .o. women 16.6 +/- 2.9). 5.5# of force R tip pinch w/ resulting pain (compared to 45 -49 y.o. women 13.2 +/- 3.0) vs 5.0# of force L tip pinch ( compared to 45-49 y.o. women 12.1 +/- 2.7). 9.5# of force R 3-jaw pinch (compared to 45- 49 y.o. women 17.9 +/- 3.0) vs 7.5# of force L 3-jaw pinch ( compared to 45-49 y.o. women 17.5 +/- 2.8). Outpatient OT rec for HEP instruction, joint protection education, gentle strengthening, and discussion re: conservative pain/swelling management techniques. Home Exercise Program 12/29/23 = Instructed in bilateral myofascial thumb adductor release; instructed in modification w/ use of practice/foam golf ball. Rec 20-30 hold and switch. Repeat daily and/or as needed. Instructed in functional 'c' or 'o'; instructed in isometric hold for 5-10 sec; 3 sets of 15 reps every other day; rec working towards use of object (rec likely thin -> increasing in size as able to do so). Instructed in monitoring for hyperext at MPJs and IPJs w/ obj manipulation. Length of treatment (weeks) 6 Plan of Care Start Date 12/29/23 Plan of Care End Date 02/09/24 Treatment Frequency Once a Week Therapeutic Contents Active Range of Motion, Adaptive Equipment Education, Client Education,Functional Activities,Home Exercise Program,Joint Protection, Manual Therapy,Education, Neurodevelopment Treatment, Self-Care,Stretching/ Flexibility Activities, Therapeutic Activities, Therapeutic Exercises, Modalities Modalities As Needed,As Prescribed Additional Types of Modalities Heat/Ice/Contrast Baths/ Ultrasound/Paraffin Other Suggested Referrals x-ray of hands/wrists and/or other diagnostic testing rec
--- NOTE | 2024-01-10 10:08 | OT.OP.DC ---
Visit Care Team Role Provider Type Malu Lowe MD Attending Provider Physician Family Provider Primary Care Provider Referring Provider Address: [address] [place] [address], [id number] Email: [email or web address] Outpatient OT Outpatient Adult Evaluation Start: 12/29/23 15:36 Freq: Status: Active Protocol: Document 12/29/23 15:37 AMS (Rec: 12/29/23 16:12 AMS [id number]) General Information - Adult Visit Information Plan of Care Dates 12/29/23 - 02/09/24 Insurance Information [facility]; No visit limit; Therapist Only Setting Treatment Setting Outpatient Care Visit Type Note Type Initial Evaluation Referral Referring Physician Malu Lowe MD Reason for Referral Pain in Hands Identification Identification Confirmed Yes Identification Confirmed By Self Goals Treatment Treatment Initiated HEP. See below for details. Prison Goals Prison Goals 1. Rosey will be modified independent with execution of home exercise program utilizing provided written and visual instructions as needed . 2. Rosey will verbalize 100% understanding of basic joint protection principles referencing provided written and visual materials as needed . Assessment/Plan Assessment Treatment Assessment Rosey is 48 y.o.; R hand dominant; referred to outpatient OT d/t pain presenting in both hands. Medical history is significant for arthritis; back, neck, and jaw pain; depression; falls; psychological disorder; gallbladder removal. 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 She uses an easel with painting. She reports avoiding bilateral wrist flexion w/ typing. QuickDASH UE Outcome Measure Score = 40.91 (difficulty sleeping x 2 days last week); QuickDASH Work Module Score = 31.25. Whole Body Pain Assessment Grid completed; indication of 9 out of 10 on pain scale relative to distal B UEs; Wrist/Hand Pain Assessment Grid completed; indication of 9 out of 10 on pain scale relative to distal B UEs for several days. Discomfort reported of bilateral dorsal MPJs and w/ palpation of bilateral CMCJs. (-) wearing of hand braces; took Ibuprofen last week for pain management. Goniometer measurements: 0-75 degrees active R wrist ext vs 0-68 degrees active L wrist ext. 0-45 degrees active R wrist flex vs 0-55 degrees active L wrist flex. 0-30 degrees active R wrist UD vs 0 -27 degrees active L wrist UD. 0-0 degrees active R wrist RD vs 0-3 degrees active L wrist RD. 0-50 degrees bilateral palmar radial thumb abduction; 0-45 degrees R thumb radial abduction vs 0-40 degrees L thumb radial abduction. 0-30 degrees active R MPJ flex vs 0 -45 degrees active L MPJ flex. Tendency into hyperextension of L MPJ vs R; though, intermittent hyperextension noted. Positioning of IPJs intermittently in hyperextension as well; 0-55 degrees R IPJ hyperextension vs 0-65 degrees L IPJ hyperextension. Report of tightness bilaterally w/ formation of hook fist(s) bilaterally. MMT as follows: 4+/5 R wrist ext vs 4/5 L wrist ext. 4/5 R wrist flex vs 3+/5 L wrist flex. 4+/5 R wrist UD vs 4+/5 L wrist UD. 3+/[address] vs 3+/[address] Dynamometer II Metal Drill Press Operator Strength Testing Results were as follows: 13.0 # of force R administrative supervisor (compared to 45-49 y.o. women 62.2 +/- 15. 1) vs 30.0# of force L administrative supervisor ( compared to 45-49 y.o. women 56.0 +/- 12.7). Pinchometer Strength Testing Results were as follows: 11.5# of force R lateral martínez pinch (compared to 45-49 y.o. women 17.6 +/- 16. 6) vs 9.0# of force L lateral martínez pinch (compared to 45-49 y .o. women 16.6 +/- 2.9). 5.5# of force R tip pinch w/ resulting pain (compared to 45 -49 y.o. women 13.2 +/- 3.0) vs 5.0# of force L tip pinch ( compared to 45-49 y.o. women 12.1 +/- 2.7). 9.5# of force R 3-jaw pinch (compared to 45- 49 y.o. women 17.9 +/- 3.0) vs 7.5# of force L 3-jaw pinch ( compared to 45-49 y.o. women 17.5 +/- 2.8). Outpatient OT rec for HEP instruction, joint protection education, gentle strengthening, and discussion re: conservative pain/swelling management techniques. Home Exercise Program 12/29/23 = Instructed in bilateral myofascial thumb adductor release; instructed in modification w/ use of practice/foam golf ball. Rec 20-30 hold and switch. Repeat daily and/or as needed. Instructed in functional 'c' or 'o'; instructed in isometric hold for 5-10 sec; 3 sets of 15 reps every other day; rec working towards use of object (rec likely thin -> increasing in size as able to do so). Instructed in monitoring for hyperext at MPJs and IPJs w/ obj manipulation. Plan Length of treatment (weeks) 6 Plan of Care Start Date 12/29/23 Plan of Care End Date 02/09/24 Treatment Frequency Once a Week Therapeutic Contents Active Range of Motion, Adaptive Equipment Education, Client Education,Functional Activities,Home Exercise Program,Joint Protection, Manual Therapy,Education, Neurodevelopment Treatment, Self-Care,Stretching/ Flexibility Activities, Therapeutic Activities, Therapeutic Exercises, Modalities Modalities As Needed,As Prescribed Additional Types of Modalities Heat/Ice/Contrast Baths/ Ultrasound/Paraffin Other Suggested Referrals x-ray of hands/wrists and/or other diagnostic testing MD rec Functional Wrist/Hand Scan Hand Side Sensory Assessment Sensory Profile2 OT Outpatient Muscle Testing Start: 12/29/23 15:36 Freq: Status: Active Protocol: Document 12/29/23 15:37 AMS (Rec: 12/29/23 16:12 AMS [id number]) Wrist Strength Wrist Manual Muscle Testing Left Flexion (C7) 3+ Fair+ Extension (C6) 4 Good Ulnar Deviation 4+ Good+ Radial Deviation 3+ Fair+ Right Flexion (C7) 4 Good Extension (C6) 4+ Good+ Ulnar Deviation 4+ Good+ Radial Deviation 3+ Fair+ OT Outpatient Treatment Note - Adult Start: 12/29/23 15:36 Freq: Status: Active Protocol: Document 01/10/24 10:06 AMS (Rec: 01/10/24 10:08 AMS [id number]) OT Outpatient Adult Treatment Note Visit Information Plan of Care Dates 12/29/23 - 02/09/24 Setting Treatment Setting Outpatient Care Visit Type Note Type Discharge Summary - Subjective Observations Per front desk manager staff, pt called to cancel remaining appts, stating that her life is too chaotic right now, doesn't want to receive $50 charges. - Objective Circular Shear Operator Goals ALL GOALS D/C 01/10/24 1. Rosey will be modified independent with execution of home exercise program utilizing provided written and visual instructions as needed . 2. Rosey will verbalize 100% understanding of basic joint protection principles referencing provided written and visual materials as needed . - - Assessment Assessment of Improvement Per front desk manager staff, pt called to cancel remaining appts, stating that her life is too chaotic right now, doesn't want to receive $50 charges. Thus, d/c paperwork to be completed. Will re- evaluate as deemed appropriate , with receipt of new referral from PCP for outpatient OT. - Plan Therapy Recommendations Discharge from Occupational Therapy
== END 2024-02-08 11:28 ==
LOC: OT 10:16
PROVIDERS: Family Provider Student in an Organized Health Care Education/Training Program; PCP Student in an Organized Health Care Education/Training Program; Referring Provider Student in an Organized Health Care Education/Training Program; Visit Provider Student in an Organized Health Care Education/Training Program
DX: M79.643 Pain in unspecified hand (principal)
CPT/HCPCS: 97110; 97165

== ENCOUNTER → 2024-01-03 11:16 | Outpatient (CLI) | payer MEDICARE, MEDICAID, SELFPAY ==
--- NOTE | 2024-01-03 11:19 | DI.RAD.S_ITS ---
PROCEDURE: XR HAND LT 2V INDICATIONS: hand pain TECHNIQUE: 2 views of the hand(s) acquired. COMPARISON: None. FINDINGS: Bones: No fractures or dislocations. Carpal bones are normally aligned. No suspicious bony lesions. 1st CMC joint space narrowing with associated osteophytosis and sclerosis. Soft tissues: No suspicious soft tissue calcifications. IMPRESSION: No acute bony abnormality. 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 Dictated by: Johnnie Krueger M.D. on 01/03/2024 at 13:54 Approved by: Johnnie Krueger M.D. on 01/03/2024 at 14:02
--- NOTE | 2024-01-03 11:19 | DI.RAD.S_ITS ---
PROCEDURE: XR HAND RT 2V INDICATIONS: hand pain TECHNIQUE: 2 views of the hand(s) acquired. COMPARISON: None. FINDINGS: Bones: No fractures or dislocations. Carpal bones are normally aligned. No suspicious bony lesions. 1st CMC joint space narrowing with associated osteophytosis and sclerosis. Soft tissues: No suspicious soft tissue calcifications. IMPRESSION: No acute bony abnormality. 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 Dictated by: Johnnie Krueger M.D. on 01/03/2024 at 14:03 Approved by: Johnnie Krueger M.D. on 01/03/2024 at 14:03
[2024-01-03 13:36] LABS: Erythrocyte Sedimentation Rate 13 MM/HR (0-20)
[2024-01-03 13:50] LABS: C-Reactive Protein Quant 0.8 mg/dL (<1.0)
[2024-01-03 14:40] LABS: Rheumatoid Factor < 8.6 IU/mL (<12.0)
[2024-01-04 22:36] LABS: CCP Antibodies IgG/IgA 7 units (0-19)
== END ==
PROVIDERS: Family Provider Student in an Organized Health Care Education/Training Program; PCP Student in an Organized Health Care Education/Training Program; Referring Provider Student in an Organized Health Care Education/Training Program; Visit Provider Student in an Organized Health Care Education/Training Program
DX: M79.641 Pain in right hand (principal); M79.642 Pain in left hand
CPT/HCPCS: 36415; 73120; 85651; 86140; 86200; 86430

== ENCOUNTER 2024-04-06 19:57 | Emergency (ER) | payer MEDICARE, MEDICAID, SELFPAY ==
[2024-04-06] VITALS (11 sets, daily range): BP systolic 115–145; BP diastolic 57–87; PULSE 94–111; RESP 16–27; TEMP 37.4–38.1; O2SAT 92–98; BMI 45.8
--- NOTE | 2024-04-06 20:27 | EKG_ITS ---
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
--- NOTE | 2024-04-06 20:27 | DI.RAD.S_ITS ---
PROCEDURE: XR CHEST 1V INDICATIONS: flu-like symptoms TECHNIQUE: One view of the chest was acquired. COMPARISON: None. FINDINGS: Surgical changes and devices: None. Lungs and pleura: Lungs are clear. No pleural effusions or pneumothorax. Mediastinum: Mediastinal contours appear normal. Heart size is normal. Bones and chest wall: No suspicious bony lesions. Overlying soft tissues appear unremarkable. IMPRESSION: No acute cardiopulmonary abnormality is seen. Dictated by: Reji Glez M.D. on 04/06/2024 at 21:00 Approved by: Reji Glez M.D. on 04/06/2024 at 21:00
[2024-04-06] MEDS: ACETAMINOPHEN 325 MG TABLET 975 MG PO (21:45)
--- NOTE | 2024-04-06 22:03 | PC.NURSE ---
Pt up ambulating in rader. Steady gait noted.
[2024-04-06 22:42] LABS: Influenza A - CEPHEID Flu A NEGATIVE (NEGATIVE); Influenza B - CEPHEID Flu B NEGATIVE (NEGATIVE); Respiratory Syncytial Virus Negative (Negative)
[2024-04-06 22:47] LABS: COVID-19 CEPHEID 4-PLEX PCR POSITIVE (Negative)
--- NOTE | 2024-04-06 23:52 | ED_ITS ---
HPI - General Adult General Chief complaint: Shortness of Breath/Dyspnea Stated complaint: cough, covid+ Time Seen by Provider: 04/06/24 21:40 Source: patient and EMS Mode of arrival: EMS Limitations: no limitations History of Present Illness HPI narrative: 49-year-old female history mood disorder, schizoaffective bipolar type, PTSD diagnosed with the COVID recently. Patient was coughing today and coughed up a clot the size of a quarter but has also been having epistaxis. Patient states epistaxis short its shortly thereafter. Has not had persistent bleeding or large amounts of nosebleed. States she has had epistaxis in the past that is not atypical. She was currently taking Paxlovid for her recent COVID diagnosis. Also had a recent trip to [place] and returned on Wednesday via air. Patient states she has had fevers, she has had some chills. She has had nosebleed. Denies a lot of runny nose. She has had a little bit of cough but states mostly nonproductive except for the clot earlier today. Patient denies any chest pain or pressure. Denies any shortness of breath. Denies any current nausea or vomiting. Denies any diarrhea constipation, no urinary symptoms. Denies any swelling of extremities. States home medications include Effexor, Geodon, Lamictal and Ativan. Denies any prior surgeries. No known drug allergies. No tobacco alcohol or recreational drugs. No known history of blood clots or cardiac disease for patient or family. Related Data Home Medications Medication Instructions Recorded Confirmed ascorbate calcium (vitamin C) 500 500 mg PO DAILY 08/31/23 02/15/24 mg tablet cholecalciferol (vitamin D3) 25 25 mcg PO DAILY 08/31/23 02/15/24 mcg (1,000 unit) tablet omeprazole 20 mg capsule,delayed 20 mg PO DAILY 08/31/23 02/15/24 release perit.dialysis 6-1.5 % dextros ml intraperitoneal 08/31/23 02/15/24 (Delflex-LC/1.5% Dextrose) phytosterol 450 mg tablet mg PO 08/31/23 02/15/24 vitamin B comp and C no.3 15 mg-10 1 cap PO DAILY 08/31/23 02/15/24 mg-50 mg-5 mg-300 mg capsule (B Complex Plus Vitamin C) vitamin K2 90 mcg capsule 90 mcg PO DAILY 03/10/24 Previous Rx's Medication Instructions Recorded levomefolate calcium 15 mg tablet 15 mg PO DAILY #90 tabs 06/14/18 (L-Methylfolate) lamotrigine 200 mg tablet 400 mg (2 x 200 mg) PO BEDTIME #60 11/12/23 tabs lorazepam 0.5 mg tablet 0.5 mg PO .5 times prn PRN anxiety 02/15/24 #150 tabs venlafaxine 150 mg 300 mg (2 x 150 mg) PO DAILY #60 02/21/24 capsule,extended release 24 hr caps (Effexor XR) venlafaxine 75 mg capsule,extended 75 mg PO QDAY #30 caps 02/21/24 release 24 hr (Effexor XR) ziprasidone HCl 80 mg capsule 80 mg PO BID #180 caps 02/21/24 nirmatrelvir 300 mg (150 mg See Rx Instructions PO .COMPLEX 04/06/24 x2)-ritonavir 100 mg tablet,dose #30 ea pack (Paxlovid) Allergies Allergy/AdvReac Type Severity Reaction Status Date / Time codeine Allergy Intermediate HIVES Verified 02/15/24 11:08 grass pollen-perennial rye, Allergy Intermediate unable to Verified 02/15/24 11:08 standar breath properly penicillin G Allergy Intermediate NAUSEA Verified 02/15/24 11:08 rifampin [RIFAMPIN] Allergy Unknown Verified 02/15/24 11:08 Sulfa (Sulfonamide Allergy Unknown Verified 02/15/24 11:08 Antibiotics) [SULFA (SULFONAMIDE ANTIBIOTICS)] Opioids - Morphine Analogues AdvReac Intermediate CAN'T SLEEP Verified 02/15/24 11:08 Review of Systems Review of Systems ROS Unobtainable: All systems reviewed & are unremarkable except as noted in HPI and below Patient History Medical History Schizoaffective disorder, bipolar type Foot pain (2014) History of recurrent ear infection (1999) HPV (human papilloma virus) infection (2009) IBS (irritable bowel syndrome) (1998) Abnormal Pap smear of cervix (2009) History of heavy periods (2016) Irregular periods/menstrual cycles (2016) Chicken pox (1984) Chronic back pain (1999) Anxiety (1998) History of suicide attempt High-functioning autism spectrum disorder Surgical History Anesthesia Status post cholecystectomy (2009) Family History Brother Age: 43 Mental health problem Mother Age: 81 Breast cancer Father Colon cancer Grandfather Bone cancer Grandmother Emphysema of lung Grandfather No problems noted. Grandmother No problems noted. 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 seatbelt use: always helmet use: Yes water heater temp set < 120 deg: Yes working smoke detector in home: Yes fire extinguisher in home: No carbon monox detector in home: Yes firearms in home: No Smoking Status: Former smoker second hand exposure: No alcohol intake: never substance use type: does not use during the past year weight has: decreased > 10 lbs well-balanced diet: daily or most days daily servings fruits/ve-4 caffeine: Yes eating out: rarely or never Type(s) of exercise: walking frequency: 5-6 times per week duration: 15-30 minutes/day additional social history: single Smoking Status: Former smoker alcohol intake frequency: 0-2 drinks per day Substance Use Type: does not use Exam Narrative Exam Narrative: GEN: well nourished, well appearing female, alert and oriented x 3, patient appears to be in mild distress. HEENT: Atraumatic, pupils are equal round reactive to light, extraocular movements are intact, left naris has dried blood, no active source or bleeding but has blood in size and swelling of the edge of the nose, there is no conjunctival pallor. Throat is clear without any exudates, erythema, tonsillar enlargement or uvular deviation HEART: Regular rate and rhythm without murmur, clicks, rubs. Pulses equal bilateral lower extremities. LUNGS:Lungs clear to auscultation, no wheezes, rales, crackles, chest moves symmetrically no tachypnea accessory muscle use. ABD:bowel sounds normal, soft, non-tender, no guarding, rebound, rigidity, no masses noted, no hepatosplenomegaly MSCL: Non-tender, no muscle atrophy, muscles strength 5/5 upper and lower extrem ities, full range of motion, normal gait NEURO:CN 2-12 intact, sensation normal. SKIN: No rash, erythema or other skin changes Initial Vital Signs Initial Vital Signs: Vital Signs Temperature 100.3 F H 04/06/24 20:02 Pulse Rate 102 H 04/06/24 20:02 Respiratory Rate 16 04/06/24 20:02 Blood Pressure 145/87 H 04/06/24 20:02 Pulse Oximetry 93 04/06/24 20:02 Oxygen Delivery Method Room Air 04/06/24 20:02 Course Orders Ordered: ED Orders 04/06/24 20:27 XR chest 1V Stat EKG-12 Lead Stat 04/06/24 21:42 Covid-19 + FLU A/B + RSV - PCR Stat Discontinued Medications Acetaminophen (Acetaminophen 325 Mg Tablet) 975 mg PO NOW ONE Stop: 04/06/24 21:38 Last Admin: 04/06/24 21:45 Dose: 975 mg Documented By: Vital Signs Vital signs: Vital Signs - 8 hr 04/06/24 20:02 04/06/24 20:26 04/06/24 20:30 Temperature 100.3 F H Pulse Rate 102 H 94 H 94 H Respiratory Rate 16 18 21 Blood Pressure 145/87 H Pulse Oximetry 93 96 98 Oxygen Delivery Method Room Air 04/06/24 20:30 04/06/24 21:00 04/06/24 21:00 Temperature Pulse Rate 95 H Respiratory Rate 20 Blood Pressure 132/71 126/70 Pulse Oximetry 98 Oxygen Delivery Method Room Air 04/06/24 21:30 04/06/24 21:30 04/06/24 21:45 Temperature 100.6 F H Pulse Rate 96 H Respiratory Rate 27 H Blood Pressure 134/70 Pulse Oximetry 96 Oxygen Delivery Method 04/06/24 22:07 04/06/24 22:30 04/06/24 23:00 Temperature Pulse Rate 100 H 96 H 101 H Respiratory Rate 26 H 25 H 23 Blood Pressure Pulse Oximetry 93 94 Oxygen Delivery Method Medical Decision Making Lab Data Labs: Lab Results 04/06/24 Range/Units 21:42 SARS-CoV-2 (PCR) Positive H (Negative) Influenza A (RT-PCR) Flu a negative (NEGATIVE) Influenza B (RT-PCR) Flu b negative (NEGATIVE) RSV (PCR) Negative (Negative) Imaging Data Chest x-ray: Radiologist's Impression: [address] [address] XRay Report Signed Patient: Rosey Saenz MR#: [id number] : 1975 Acct:[id number] Age/Sex: 49 / F Date of Service: 04/06/24 Loc: ED Accession Number: [id number] Procedure: XR chest 1V Ordering Provider: Ambreen Goode D.O. PROCEDURE: XR CHEST 1V INDICATIONS: flu-like symptoms TECHNIQUE: One view of the chest was acquired. COMPARISON: None. FINDINGS: Surgical changes and devices: None. Lungs and pleura: Lungs are clear. No pleural effusions or pneumothorax. Mediastinum: Mediastinal contours appear normal. Heart size is normal. Bones and chest wall: No suspicious bony lesions. Overlying soft tissues appear unremarkable. IMPRESSION: No acute cardiopulmonary abnormality is seen. Dictated by: Reji Glez M.D. on 04/06/2024 at 21:00 Approved by: Reji Glez M.D. on 04/06/2024 at 21:00 ECG Data Attestation: I personally reviewed and interpreted this ECG as follows: Interpretation: Normal sinus rhythm rate of 92 OR 128 QRS of 94 QTC 425, no S1 Q [address] elevation or depression. MDM Narrative Medical decision making narrative: 49-year-old female with a history of mood disorder patient has recent COVID diagnosis states she did cough up blood clot earlier today which concerned her but noted that she has had epistaxis today as that started shortly after she coughed up the blood clot. States it is normal for does have epistaxis. Patient has not been having persistent issues she does have some dried blood inside her left naris. Chest x-ray shows no acute change EKG shows sinus rhythm rate of 92. Patient is positive for COVID on respiratory panel. Discussed with the patient's suspect the clot from her epistaxis but she has had recent air travel cross country. Discussed obtaining labs including D-dimer to evaluate for pulmonary emboli with recent travel and if positive would result in CT scan of the chest. Patient does not wish to and prefer to return home. Discussed there is a small chance that she could have a blood clot but I think this is much less likely based on the fact that she is obvious epistaxis recently from her nose. Discharge Plan Departure Patient Disposition: Home Clinical Impression: COVID-19 virus infection, Epistaxis Instructions: DI for COVID-19 (Suspected or Confirmed ) Activity Restrictions/Additional Instructions: Please return as needed. COVID is a viral infection last about 7-10 days total. Continue your home medications as prescribed. You can take Tylenol and/or ibuprofen as needed for fevers. Continue with usual methods for your nosebleeds, sometimes it is helpful have some humidification in the house particularly when you are sick has people tend to be more likely to have nosebleeds or epistaxis. Please return if you are having worsening symptoms, new chest pain or shortness of breath, lightheadedness or passing out, persistent nosebleeds that do not r espond to drink pressure for 10 minutes, lightheadedness or passing out, new swelling of your extremities or other new or concerning changes. Prescriptions: No Action cholecalciferol (vitamin D3) 25 mcg (1,000 unit) tablet 25 mcg PO DAILY Delflex-LC/1.5% Dextrose Ca 2.5 mEq/L- Mg 0.5 mEq/L solution intraperitoneal omeprazole 20 mg capsule,delayed release(DR/EC) 20 mg PO DAILY B Complex Plus Vitamin C 26-68-99-5-300 mg capsule 1 cap PO DAILY Rx Instructions: give with food (meal/snack) phytosterol 450 mg tablet PO ascorbate calcium (vitamin C) 500 mg tablet 500 mg PO DAILY lorazepam 0.5 mg tablet 0.5 mg PO .5 times prn PRN (Reason: anxiety) Qty: 150 5RF levomefolate calcium [L-Methylfolate] 15 mg tablet 15 mg PO DAILY Qty: 90 3RF Patient Comments: patient states doctor is trying to change to a more affordable medication. sandra lamotrigine 200 mg tablet 400 mg PO BEDTIME Qty: 60 5RF ziprasidone HCl 80 mg capsule 80 mg PO BID Qty: 180 0RF venlafaxine [Effexor XR] 150 mg capsule,extended release 24hr 300 mg PO DAILY Qty: 60 5RF venlafaxine [Effexor XR] 75 mg capsule,extended release 24hr 75 mg PO QDAY Qty: 30 5RF Patient Comments: total daily dose 375mg vitamin K2 90 mcg capsule 90 mcg PO DAILY Paxlovid 300 mg (150 mg x 2)-100 mg tablets,dose pack See Rx Instructions PO .COMPLEX Qty: 30 0RF Rx Instructions: take TWO 150 mg tablets of nirmatrelvir with ONE 100 mg tablet of ritonavir twice daily for 5 days PO Referrals: Malu Lowe MD [Primary Care Provider] - Stand Alone Forms: Patient Portal/API
[2024-04-07] VITALS: PULSE 94; RESP 21; O2SAT 93
== END 2024-04-07 00:15 | disposition home or self-care (01) ==
PROVIDERS: Emergency Provider Emergency Medicine; Family Provider Student in an Organized Health Care Education/Training Program; PCP Student in an Organized Health Care Education/Training Program
DX: U07.1 COVID-19 (principal); R04.0 Epistaxis; R07.9 Chest pain, unspecified
CPT/HCPCS: 0241U; 71045; 93005; 99283

== ENCOUNTER → 2024-05-31 12:10 | Outpatient (CLI) | payer MEDICARE, MEDICAID, SELFPAY ==
[2024-05-31 13:04] LABS: BUN Creatinine Ratio 14.9 (6-22); Blood Urea Nitrogen 11 mg/dL (7-17); Calcium 9.1 mg/dL (8.4-10.2); Carbon Dioxide 20 mmol/L (22-32); Chloride 106 mmol/L (98-107); Estimated Glomerular Filt Rate > 60 mL/min (>60); Glucose 117 mg/dL (70-100); HEMOLYSIS 26 (0-50); Potassium 3.9 mmol/L (3.4-5.1); Sodium 136 mmol/L (137-145)
== END ==
PROVIDERS: Family Provider Student in an Organized Health Care Education/Training Program; PCP Student in an Organized Health Care Education/Training Program; Referring Provider Student in an Organized Health Care Education/Training Program; Visit Provider Student in an Organized Health Care Education/Training Program
DX: Z51.81 Encounter for therapeutic drug level monitoring (principal); F31.75 Bipolar disorder, in partial remission, most recent episode depressed; F41.9 Anxiety disorder, unspecified; F43.12 Post-traumatic stress disorder, chronic; F25.0 Schizoaffective disorder, bipolar type
CPT/HCPCS: 36415; 80048; 99214

== ENCOUNTER → 2024-06-12 11:50 | Outpatient (CLI) | payer MEDICARE, MEDICAID, SELFPAY ==
--- NOTE | 2024-06-12 11:52 | DI.RAD.S_ITS ---
PROCEDURE: XR FOOT RT MIN 3V INDICATIONS: right foot pain TECHNIQUE: 3 views of the foot were acquired. COMPARISON: [facility], , XR FOOT RT MIN 3V, 03/25/2018, 10:54. FINDINGS: Bones: No fractures or dislocations. No suspicious bony lesions. Tiny plantar calcaneal spur. Soft tissues: No tibiotalar joint effusion. Achilles tendon appears normal. IMPRESSION: No acute bony abnormality. Dictated by: Reji Glez M.D. on 06/13/2024 at 1:35 Approved by: Reji Glez M.D. on 06/13/2024 at 1:36
== END ==
PROVIDERS: Family Provider Student in an Organized Health Care Education/Training Program; PCP Student in an Organized Health Care Education/Training Program; Referring Provider Student in an Organized Health Care Education/Training Program; Visit Provider Student in an Organized Health Care Education/Training Program
DX: M79.671 Pain in right foot (principal); F31.75 Bipolar disorder, in partial remission, most recent episode depressed; F41.9 Anxiety disorder, unspecified
CPT/HCPCS: 73630; 99214

== ENCOUNTER → 2024-08-14 11:55 | Outpatient (CLI) | payer MEDICARE, MEDICAID, SELFPAY ==
[2024-08-14 12:39] LABS: Hemoglobin A1C% w Est Avg Glu 5.3 % (4.0-6.0)
[2024-08-14 12:49] LABS: Alanine Aminotransferase 26 IU/L (<35); Albumin 4.2 g/dL (3.5-5.0); Albumin Globulin Ratio 1.6 (1.0-2.8); Alkaline Phosphatase 74 U/L (38-126); Aspartate Aminotransferase 29 IU/L (14-36); BUN Creatinine Ratio 20.3 (6-22); Bilirubin Total 0.2 mg/dL (0.2-1.3); Blood Urea Nitrogen 14 mg/dL (7-17); Calcium 9.2 mg/dL (8.4-10.2); Carbon Dioxide 25 mmol/L (22-32); Chloride 104 mmol/L (98-107); Estimated Glomerular Filt Rate > 60 mL/min (>60); Globulin 2.7 g/dL (1.7-4.1); Glucose 99 mg/dL (70-100); HEMOLYSIS < 15 (0-50); Potassium 4.5 mmol/L (3.4-5.1); Sodium 135 mmol/L (137-145); Total Protein 6.9 g/dL (6.3-8.2)
== END ==
PROVIDERS: Family Provider Student in an Organized Health Care Education/Training Program; PCP Student in an Organized Health Care Education/Training Program; Referring Provider Student in an Organized Health Care Education/Training Program; Visit Provider Student in an Organized Health Care Education/Training Program
DX: E66.9 Obesity, unspecified (principal); Z86.39 Personal history of other endocrine, nutritional and metabolic disease
CPT/HCPCS: 36415; 80053; 83036

== ENCOUNTER 2024-08-22 16:22 | Emergency (ER) | payer MEDICARE, SELFPAY ==
[2024-08-22 16:30] VITALS: BP 139/90; PULSE 95; RESP 16; TEMP 37; O2SAT 98; BMI 44.2
== END 2024-08-22 18:12 | disposition left against medical advice (07) ==
PROVIDERS: Emergency Provider Emergency Medicine; Family Provider Student in an Organized Health Care Education/Training Program; PCP Student in an Organized Health Care Education/Training Program
CPT/HCPCS: 99281

== ENCOUNTER 2024-08-23 05:07 | Emergency (ER) | payer MEDICARE, SELFPAY ==
[2024-08-23] VITALS (11 sets, daily range): BP systolic 104–140; BP diastolic 64–82; PULSE 85–94; RESP 11–23; TEMP 36.7; O2SAT 96–98; BMI 44.2
--- NOTE | 2024-08-23 05:33 | EKG_ITS ---
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
--- NOTE | 2024-08-23 07:54 | ED.EXTPRO ---
HPI - Extremity Problem General Chief complaint: Extremity Problem,Nontraumatic Stated complaint: left arm numbness Time Seen by Provider: 08/23/24 06:51 Source: EMS Mode of arrival: EMS History of Present Illness HPI Narrative: Patient 49-year-old female history of bipolar presenting today with left arm pain. It sounds like it is maybe weak at times maybe she has some tingling it has been ongoing for couple of days. She reports a dull ache in her left leg which has been there for months. She has no trouble walking. No chest pain or shortness of breath. She apparently called her primary who recommended she come to the ED she came last night but left without being seen. She had some things to take care of came back today. She denies any chest pain jaw pain back pain no shortness of breath fever chills or other symptoms. Quite worried about her left arm. Related Data Home Medications Medication Instructions Recorded Confirmed ascorbate calcium (vitamin C) 500 500 mg PO DAILY 08/31/23 08/14/24 mg tablet cholecalciferol (vitamin D3) 25 25 mcg PO DAILY 08/31/23 08/14/24 mcg (1,000 unit) tablet perit.dialysis 6-1.5 % dextros ml intraperitoneal 08/31/23 08/14/24 (Delflex-LC/1.5% Dextrose) phytosterol 450 mg tablet mg PO 08/31/23 08/14/24 vitamin B comp and C no.3 15 mg-10 1 cap PO DAILY 08/31/23 08/14/24 mg-50 mg-5 mg-300 mg capsule (B Complex Plus Vitamin C) vitamin K2 90 mcg capsule 90 mcg PO DAILY 03/10/24 08/14/24 Previous Rx's Medication Instructions Recorded levomefolate calcium 15 mg tablet 15 mg PO DAILY #90 tabs 06/14/18 (L-Methylfolate) famotidine 20 mg tablet 20 mg PO BID #180 tabs 06/09/24 oxcarbazepine 300 mg tablet 600 mg (2 x 300 mg) PO ONCE PM 08/14/24 #180 tabs lamotrigine 200 mg tablet 400 mg (2 x 200 mg) PO BEDTIME 08/22/24 #180 tabs lorazepam 0.5 mg tablet 0.5 mg PO .5 times prn PRN anxiety 08/22/24 #150 tabs venlafaxine 150 mg 150 mg PO DAILY #90 caps 08/22/24 capsule,extended release 24 hr (Effexor XR) ziprasidone HCl 80 mg capsule 80 mg PO BID #180 caps 08/22/24 Allergies Allergy/AdvReac Type Severity Reaction Status Date / Time codeine Allergy Intermediate HIVES Verified 08/14/24 11:37 grass pollen-perennial rye, Allergy Intermediate unable to Verified 08/14/24 11:37 standar breath properly penicillin G Allergy Intermediate NAUSEA Verified 08/14/24 11:37 rifampin [RIFAMPIN] Allergy Unknown Verified 08/14/24 11:37 Sulfa (Sulfonamide Allergy Unknown Verified 08/14/24 11:37 Antibiotics) [SULFA (SULFONAMIDE ANTIBIOTICS)] Opioids - Morphine Analogues AdvReac Intermediate CAN'T SLEEP Verified 08/14/24 11:37 Patient History Medical History Bipolar I disorder, current or most recent episode depressed, in partial remission with mixed features Therapeutic drug monitoring Schizoaffective disorder, bipolar type Foot pain (2014) History of recurrent ear infection (1999) HPV (human papilloma virus) infection (2009) IBS (irritable bowel syndrome) (1998) Abnormal Pap smear of cervix (2009) History of heavy periods (2016) Irregular periods/menstrual cycles (2016) Chicken pox (1984) Chronic back pain (1999) Anxiety (1998) History of suicide attempt High-functioning autism spectrum disorder Surgical History Anesthesia Status post cholecystectomy (2009) Family History Brother Age: 43 Mental health problem Mother Age: 81 Breast cancer Father Colon cancer Grandfather Bone cancer Grandmother Emphysema of lung Grandfather No problems noted. Grandmother No problems noted. Social History marital status: unmarried,single household members: none education level: college jayla/adventism: Nondenominational leisure activities: exercise, reading and volunteer work other: painting seatbelt use: always helmet use: Yes water heater temp set < 120 deg: Yes working smoke detector in home: Yes fire extinguisher in home: No carbon monox detector in home: Yes firearms in home: No Smoking Status: Former smoker second hand exposure: No alcohol intake: never substance use type: does not use during the past year weight has: decreased > 10 lbs well-balanced diet: daily or most days daily servings fruits/ve-4 caffeine: Yes eating out: rarely or never Type(s) of exercise: walking frequency: 5-6 times per week duration: 15-30 minutes/day additional social history: single Smoking Status: Former smoker alcohol intake frequency: 0-2 drinks per day Exam Initial Vital Signs Initial Vital Signs: Vital Signs Pulse Rate 92 H 08/23/24 05:05 Respiratory Rate 17 08/23/24 05:05 Pulse Oximetry 97 08/23/24 05:05 Oxygen Delivery Method Room Air 08/23/24 05:05 GENERAL: Alert 49-year-old female and in no acute distress. HEENT: Head atraumatic,EOMI, pupils reactive, face symmetric, moist mucous membranes CARDIOVASCULAR: Regular rate and rhythm without murmurs, rubs or gallops. RESPIRATORY: Breath sounds equal bilaterally, no wheezes rales or rhonchi. ABDOMEN: Soft, nontender. Normoactive bowel sounds all 4 quadrants. No guarding or rebound. EXTREMITIES: Normal range of motion, no clubbing or edema. 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 Cranial nerves II through XII grossly intact. Good [id number]-un-gwpd, good egkk-ig-hadp, strength equal bilaterally, no dysarthria or aphasia, sensation in tact to soft touch bilaterally, no visual changes, no facial droop SKIN: Warm, dry, no laceration, no petechiae, no rashes or lesions. Scores NIH Stroke Scale Level of Conciousness: Alert, keenly responsive Ask month/age: Answers both questions correctly. Open/close eyes, close hand: Performs both tasks correctly Best gaze horizontal: Normal Visual wong: No visual loss Facial palsy: Normal symetrical movement Left arm drift: No drift for full 10 sec Right arm drift: No drift for full 10 sec Left leg drift: No drift for full 5 sec Right leg drift: No drift for full 5 sec Limb ataxia: Absent Sensory on face/arms/legs: Normal, no sensory loss Best language: No aphasia, normal Dysarthria: Normal Extinction or inattention: No abnormality Total NIH Stroke scale score: 0 Course Orders Ordered: ED Orders 08/23/24 05:33 EKG-12 Lead Stat 08/23/24 07:59 XR chest 1V Stat EKG-12 Lead Stat 08/23/24 08:05 Complete Blood Count AUTO DIFF Stat Comprehensive Metabolic Panel Stat Lipase Stat Troponin & CK Cardiac Panel Stat 08/23/24 08:24 CT angio head and neck Stat Vital Signs Vital signs: Vital Signs - 8 hr 08/23/24 06:00 08/23/24 06:00 08/23/24 06:30 Pulse Rate 85 Respiratory Rate 16 Blood Pressure 124/64 115/65 Pulse Oximetry 08/23/24 06:30 08/23/24 07:52 08/23/24 07:53 Pulse Rate 87 94 H 92 H Respiratory Rate 23 11 L Blood Pressure Pulse Oximetry 98 08/23/24 07:53 08/23/24 08:00 08/23/24 08:00 Pulse Rate 87 Respiratory Rate 20 Blood Pressure 118/78 112/74 Pulse Oximetry 97 08/23/24 08:20 08/23/24 08:20 08/23/24 08:30 Pulse Rate 92 H 91 H Respiratory Rate 22 23 Blood Pressure 104/69 Pulse Oximetry 97 97 08/23/24 08:31 08/23/24 08:31 Pulse Rate 93 H Respiratory Rate 15 Blood Pressure 126/80 Pulse Oximetry 97 MDM - Extremity (Nontraumatic) Lab Data 08/23/24 08:05 08/23/24 08:05 Labs: Lab Results 08/23/24 Range/Units 08:05 WBC 7.7 (4.5-11.0) X10^3/uL RBC 4.48 (4.0-5.2) X10^6/uL Hgb 12.9 (12.0-16.0) g/dL Hct 39.3 (36-46) % MCV 87.8 (80-100) fL MCH 28.9 (26-34) PG MCHC 32.9 (30-36) % RDW 14.9 H (11.6-14.8) % Plt Count 354 (150-400) X10^3/uL Neut % (Auto) 68.6 (50-75) % Lymph % (Auto) 23.4 L (25-40) % Baldwin % (Auto) 5.7 (3-14) % Eos % (Auto) 1.6 L (2-4) % Baso % (Auto) 0.7 (0-2) % Neut # (Auto) 5300 (9964-7434) /uL Lymph # (Auto) 1800 (9091-7754) /uL Baldwin # (Auto) 400 (0-900) /uL Eos # (Auto) 100 (0-450) /uL Baso # (Auto) 100 (0-100) /uL Sodium 136 L (137-145) mmol/L Potassium 4.4 (3.4-5.1) mmol/L Chloride 103 (98-107) mmol/L Carbon Dioxide 27 (22-32) mmol/L BUN 15 (7-17) mg/dL Creatinine 0.74 (0.52-1.04) mg/dL Estimated GFR > 60 (>60) mL/min BUN/Creatinine Ratio 20.3 (6-22) Glucose 104 H (70-100) mg/dL Calcium 8.6 (8.4-10.2) mg/dL Total Bilirubin 0.2 (0.2-1.3) mg/dL AST 28 (14-36) IU/L ALT 22 (<35) IU/L Alkaline Phosphatase 73 (38-126) U/L Total Creatine Kinase 62 (30-135) U/L Troponin I < 0.012 (0.01-0.034) ng/mL Total Protein 6.8 (6.3-8.2) g/dL Albumin 4.0 (3.5-5.0) g/dL Globulin 2.8 (1.7-4.1) g/dL Albumin/Globulin Ratio 1.4 (1.0-2.8) Lipase 43 (23-300) U/L Imaging Data CTA - brain/neck: Radiologist's Impression: PROCEDURE: CT ANGIO HEAD AND NECK INDICATIONS: left arm numbness for days TECHNIQUE: After the administration of intravenous contrast, 1 mm thick sections acquired from the aortic arch through the [place] of [place]. 3-dimensional eyhihtk-npxxveqkg-tfkernhgsy (MIP) and/or volume rendering reformats were acquired of the central intracranial vasculature and neck separately. For radiation dose reduction, the following was used: automated exposure control, adjustment of mA and/or kV according to patient size. COMPARISON: [facility], CT, CT ANGIO HEAD AND NECK, 12/29/2020, 19:12. FINDINGS: Image quality: Diagnostic. BRAIN: CSF spaces: Ventricles are normal in size and shape. Basal cisterns are patent. No extra-axial fluid collections. Brain: No significant abnormality of the brain can be seen. Skull and face: Calvarium and facial bones appear intact, without suspicious lesions. Orbits appear normal. Sinuses: Sinuses and mastoids are clear. HEAD CT ANGIOGRAPHY: Anterior circulation: Intracranial internal carotid arteries are normal in size and flow. The flow within the paired anterior cerebral arteries is normal and symmetric. The flow within the middle cerebral arteries is normal and symmetric. The anterior communicating artery is seen. No aneurysms are seen. Posterior circulation: Visualized portions of the vertebral arteries demonstrate normal caliber, and join to form a normal appearing basilar artery. Flow within the posterior cerebral arteries is normal and symmetric. No aneurysms are seen. NECK CT ANGIOGRAPHY: Carotid system: The great vessels demonstrate a conventional anatomy as they arise from the aortic arch. The origins of the common carotid arteries appear patent. The common carotid arteries demonstrate normal caliber and courses. The bifurcation regions are both widely patent. The internal carotid arteries demonstrate normal calibers and courses. Posterior circulation: The origins of the vertebral arteries both appear widely patent. The more superior extracranial portions of both vertebral arteries also demonstrate normal courses and calibers. They join to form a normal appearing basilar artery. Soft tissues: Visualized neck soft tissues demonstrate no suspicious abnormalities. Bones: No suspicious bony lesions. Visualized cervical spine appears normally aligned. IMPRESSION: No significant intracranial arterial abnormality is seen. No significant abnormality is seen within the arteries of the neck. Any quantitative measurements of stenosis were performed using NASCET criteria. Dictated by: Neri Middleton M.D. on 08/23/2024 at 8:27 ECG Data Attestation EKG: I personally reviewed and interpreted this ECG as follows: Interpretation: Normal sinus rhythm rate 80 SD interval 134 QRS [address] changes or T-wave inversions MDM Narrative Medical decision making narrative: MDM CC: Left arm weakness pain Complicating co-morbidities: Bipolar Medical records reviewed: PCP records reviewed Differential considered: Acute coronary syndrome CVA musculoskeletal Exam documented above, pertinent findings include: Patient 49-year-old female NIH stroke scale 0 she has good strength in the left arm neurovascularly intact no obvious bony deformity Lab Test results independently reviewed as above. Pertinent findings: Relatively unremarkable CBC shows no leukocytosis or anemia CMP no electrolyte abnormalities no SIMRAN Troponin negative Bilirubin liver enzymes we can normally enzymes Independently reviewed EKG as above sinus rhythm no ischemia Imaging studies independently reviewed: Chest x-ray no acute cardiopulmonary process CT head and neck angio no intracranial abnormality no stenosis Re-evaluations: Patient ambulatory in the ED Discussion: 49-year-old female presents today with ongoing left arm discomfort. She reports that it is weak though do not appreciate anything she is good strength she was able to hold it up for 10 seconds no significant loss of sensation. She does have some left leg pain but it is very musculoskeletal in hurts in her groin. She would full workup cardiac and CVA symptoms have been ongoing for at least a few days if not weeks. At this time workup is overall unremarkable recommend supportive care and outpatient follow up. Low concern for CVA or TIA also low concern for acute coronary syndrome she has not really having any sort of chest pain really complains of maybe some tingling. It might be a peripheral neuropathy. She has good during minimal pain if any no decreased range of motion. Discharge Plan Departure Patient Disposition: Home Clinical Impression: Arm pain, left Instructions: DI for Arm Pain Activity Restrictions/Additional Instructions: *You have been diagnosed with left arm pain *What to do: At this time your workup in the emergency department is negative please follow-up with your primary care provider *Continue to take medications as directed Tylenol Motrin as needed for pain *Follow up with your primary care provider in 2-3 days or call [phone] *Return to ER if you should have increased weakness chest pain or or any new, worsening or concerning symptoms Prescriptions: No Action cholecalciferol (vitamin D3) 25 mcg (1,000 unit) tablet 25 mcg PO DAILY Delflex-LC/1.5% Dextrose Ca 2.5 mEq/L- Mg 0.5 mEq/L solution intraperitoneal B Complex Plus Vitamin C 49-67-05-5-300 mg capsule 1 cap PO DAILY Rx Instructions: give with food (meal/snack) phytosterol 450 mg tablet PO ascorbate calcium (vitamin C) 500 mg tablet 500 mg PO DAILY levomefolate calcium [L-Methylfolate] 15 mg tablet 15 mg PO DAILY Qty: 90 3RF Patient Comments: patient states doctor is trying to change to a more affordable medication. jh vitamin K2 90 mcg capsule 90 mcg PO DAILY famotidine 20 mg tablet 20 mg PO BID Qty: 180 2RF oxcarbazepine 300 mg tablet 600 mg PO ONCE PM Qty: 180 0RF venlafaxine [Effexor XR] 150 mg capsule,extended release 24hr 150 mg PO DAILY Qty: 90 5RF ziprasidone HCl 80 mg capsule 80 mg PO BID Qty: 180 3RF lamotrigine 200 mg tablet 400 mg PO BEDTIME Qty: 180 5RF lorazepam 0.5 mg tablet 0.5 mg PO .5 times prn PRN (Reason: anxiety) Qty: 150 0RF Referrals: Malu Lowe MD [Primary Care Provider] - Stand Alone Forms: Patient Portal/API/Survey
--- NOTE | 2024-08-23 07:56 | PC.NURSE ---
Patient ambulatory to and from bathroom with no difficulty. Patient reports mild 2/10 tingling in left arm, pain with ROM in left shoulder. 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
--- NOTE | 2024-08-23 07:59 | DI.RAD.S_ITS ---
PROCEDURE: XR CHEST 1V INDICATIONS: chest pain TECHNIQUE: One view of the chest was acquired. COMPARISON: [facility], CR, XR CHEST 1V, 04/06/2024, 20:25. FINDINGS: Surgical changes and devices: None. Lungs and pleura: Lungs are clear. No pleural effusions or pneumothorax. Mediastinum: Mediastinal contours appear normal. Heart size is normal. Bones and chest wall: No suspicious bony lesions. Overlying soft tissues appear unremarkable. IMPRESSION: No acute cardiopulmonary abnormality is seen. Dictated by: Neri Middleton M.D. on 08/23/2024 at 8:22 Approved by: Neri Middleton M.D. on 08/23/2024 at 8:22
[2024-08-23 08:15] LABS: Add Manual Diff / Slide Review NO; Basophils Absolute Auto 100 /uL (0-100); Basophils Percent Auto 0.7 % (0-2); Eosinophils Absolute Auto 100 /uL (0-450); Eosinophils Percent Auto 1.6 % (2-4); Hematocrit 39.3 % (36-46); Hemoglobin 12.9 g/dL (12.0-16.0); Lymphocytes Absolute Auto 1800 /uL (1100-4500); Lymphocytes Percent Auto 23.4 % (25-40); Mean Corpuscular HGB Conc 32.9 % (30-36); Mean Corpuscular Hemoglobin 28.9 PG (26-34); Mean Corpuscular Volume 87.8 fL (80-100); Monocytes Absolute Auto 400 /uL (0-900); Monocytes Percent Auto 5.7 % (3-14); Neutrophils Absolute Auto 5300 /uL (1500-7000); Neutrophils Percent Auto 68.6 % (50-75); Platelet Count 354 X10^3/uL (150-400); Red Blood Cell Count 4.48 X10^6/uL (4.0-5.2); Red Cell Distribution Width 14.9 % (11.6-14.8); White Blood Cell Count 7.7 X10^3/uL (4.5-11.0)
--- NOTE | 2024-08-23 08:24 | DI.CT.S_ITS ---
PROCEDURE: CT ANGIO HEAD AND NECK INDICATIONS: left arm numbness for days TECHNIQUE: After the administration of intravenous contrast, 1 mm thick sections acquired from the aortic arch through the [place] of [place]. 3-dimensional gbzpddu-kgeqfcppu-tripjnoceq (MIP) and/or volume rendering reformats were acquired of the central intracranial vasculature and neck separately. For radiation dose reduction, the following was used: automated exposure control, adjustment of mA and/or kV according to patient size. COMPARISON: [facility], CT, CT ANGIO HEAD AND NECK, 12/29/2020, 19:12. FINDINGS: Image quality: Diagnostic. BRAIN: CSF spaces: Ventricles are normal in size and shape. Basal cisterns are patent. No extra-axial fluid collections. Brain: No significant abnormality of the brain can be seen. Skull and face: Calvarium and facial bones appear intact, without suspicious lesions. Orbits appear normal. Sinuses: Sinuses and mastoids are clear. HEAD CT ANGIOGRAPHY: Anterior circulation: Intracranial internal carotid arteries are normal in size and flow. The flow within the paired anterior cerebral arteries is normal and symmetric. The flow within the middle cerebral arteries is normal and symmetric. The anterior communicating artery is seen. No aneurysms are seen. Posterior circulation: Visualized portions of the vertebral arteries demonstrate normal caliber, and join to form a normal appearing basilar artery. Flow within the posterior cerebral arteries is normal and symmetric. No aneurysms are seen. NECK CT ANGIOGRAPHY: Carotid system: The great vessels demonstrate a conventional anatomy as they arise from the aortic arch. The origins of the common carotid arteries appear patent. The common carotid arteries demonstrate normal caliber and courses. The bifurcation regions are both widely patent. The internal carotid arteries demonstrate normal calibers and courses. Posterior circulation: The origins of the vertebral arteries both appear widely patent. The more superior extracranial portions of both vertebral arteries also demonstrate normal courses and calibers. They join to form a normal appearing basilar artery. Soft tissues: Visualized neck soft tissues demonstrate no suspicious abnormalities. Bones: No suspicious bony lesions. Visualized cervical spine appears normally aligned. IMPRESSION: No significant intracranial arterial abnormality is seen. No significant abnormality is seen within the arteries of the neck. Any quantitative measurements of stenosis were performed using NASCET criteria. Dictated by: Neri Middleton M.D. on 08/23/2024 at 8:27 Approved by: Neri Middleton M.D. on 08/23/2024 at 8:31
[2024-08-23 08:27] LABS: Alanine Aminotransferase 22 IU/L (<35); Albumin Globulin Ratio 1.4 (1.0-2.8); Alkaline Phosphatase 73 U/L (38-126); Aspartate Aminotransferase 28 IU/L (14-36); BUN Creatinine Ratio 20.3 (6-22); Bilirubin Total 0.2 mg/dL (0.2-1.3); Blood Urea Nitrogen 15 mg/dL (7-17); Calcium 8.6 mg/dL (8.4-10.2); Carbon Dioxide 27 mmol/L (22-32); Chloride 103 mmol/L (98-107); Creatine Kinase 62 U/L (30-135); Estimated Glomerular Filt Rate > 60 mL/min (>60); Globulin 2.8 g/dL (1.7-4.1); Glucose 104 mg/dL (70-100); HEMOLYSIS < 15 (0-50); Lipase 43 U/L (23-300); Potassium 4.4 mmol/L (3.4-5.1); Sodium 136 mmol/L (137-145); Total Protein 6.8 g/dL (6.3-8.2)
[2024-08-23 08:38] LABS: Troponin I < 0.012 ng/mL (0.01-0.034)
== END 2024-08-23 09:24 | disposition home or self-care (01) ==
PROVIDERS: Emergency Provider Emergency Medicine; Family Provider Student in an Organized Health Care Education/Training Program; PCP Student in an Organized Health Care Education/Training Program
DX: M79.602 Pain in left arm (principal); R53.1 Weakness; R20.0 Anesthesia of skin; F31.9 Bipolar disorder, unspecified
CPT/HCPCS: 36415; 70496; 70498; 71045; 80053; 82550; 83690; 84484; 85025; 93005; 99284; Q9967

== ENCOUNTER → 2024-09-29 09:22 | Outpatient (CLI) | payer MEDICARE, SELFPAY ==
[2024-09-29 10:02] LABS: Erythrocyte Sedimentation Rate 12 MM/HR (0-20)
[2024-09-29 10:07] LABS: C-Reactive Protein Quant 0.6 mg/dL (<1.0)
[2024-09-29 10:09] LABS: Rheumatoid Factor < 8.6 IU/mL (<12.0)
== END ==
LOC: LAB 09:23
PROVIDERS: Family Provider Student in an Organized Health Care Education/Training Program; PCP Student in an Organized Health Care Education/Training Program; Referring Provider Student in an Organized Health Care Education/Training Program; Visit Provider Student in an Organized Health Care Education/Training Program
DX: M25.50 Pain in unspecified joint (principal)
CPT/HCPCS: 36415; 85651; 86038; 86140; 86430

== ENCOUNTER → 2024-10-20 11:15 | Outpatient (CLI) | payer MEDICARE, MEDICAID, SELFPAY ==
--- NOTE | 2024-10-20 11:19 | DI.MRI.S_ITS ---
PROCEDURE: MR CERVICAL SPINE WO/W CON INDICATIONS: numbness, tingling and weakness of arms TECHNIQUE: Noncontrast sagittal T1 spin echo and T2 fast spin echo, sagittal STIR, foraminal oblique sagittal T2 fast spin echo, axial gradient echo or T2 fast spin echo through the cervical spine. After the administration of contrast, axial and sagittal T1 spin echo with fat saturation through the cervical spine. COMPARISON: [facility], MR, MR CERVICAL SPINE WO CON, 05/20/2022, 16:07. [facility], CT, CT CERVICAL SPINE WITHOUT CONTRAST, 01/06/2022, 10:03. [facility], CR, XR CERVICAL SPINE WITH FLEXION EXTENSION, 09/29/2021, 10:18. FINDINGS: Image quality: Excellent. Alignment and curvature: There is reversal cervical curvature with apex at C6. Marrow: Marrow is normal in overall signal, without suspicious enhancement. Spinal cord: Visualized spinal cord has normal size and signal. No cerebellar tonsillar herniation. No abnormal intramedullary enhancement. Paraspinous soft tissues: No paravertebral masses or suspicious enhancement. C2-3: No disc bulge, spinal stenosis or foraminal narrowing. No interval change. C3-4: No disc bulge, spinal stenosis or foraminal narrowing. No interval change. C4-5: Minimal disc bulge without spinal stenosis or foraminal narrowing. No interval change. C5-6: Mild disc bulge with effacement of the anterior thecal sac with mild spinal stenosis. Mild deformity of the anterior cord. No foraminal narrowing. No interval change. C6-7: Mild disc bulge with effacement of the anterior thecal sac as well as mild spinal stenosis. Mild deformity the anterior cord. No foraminal narrowing. No interval change. C7-T1: No disc bulge, spinal stenosis or foraminal narrowing. IMPRESSION: Stable interval exam with spinal stenosis most notable at C5-6 and C6-7 secondary to disc bulge. No foraminal narrowing. Dictated by: Lynn Olmstead M.D. on 10/20/2024 at 15:59 Approved by: Lynn Olmstead M.D. on 10/20/2024 at 16:06
--- NOTE | 2024-10-20 11:19 | DI.MG.S_ITS ---
MM screening mammo BI: 10/20/2024. BI-RADS: 1 CLINICAL: 49-year old female for bilateral screening mammogram. Tyrer-Cuzick lifetime risk of 33.5%. Current reported family history of breast cancer: paternal grandmother and mother. The patient reports testing negative for BRCA gene mutation. PRIOR EXAMS 09/18/2023, 08/11/2022, 05/24/2021, 05/11/2020, 04/26/2019, 04/25/2018, 04/02/2018, 02/18/2017, 02/10/2017, 12/19/2014, 12/13/2014. MAMMOGRAPHY TECHNIQUE: 2D and 3D (tomosynthesis) digital mammographic views obtained, with additional images as needed for full coverage. Current study was also evaluated with a Computer Aided Detection (CAD) system. DENSITY C. The breasts are heterogeneously dense, which may obscure small masses. MAMMOGRAPHY FINDINGS Bilateral: No suspicious mass, asymmetry, microcalcification, or other abnormality seen. No significant change from comparison. IMPRESSION: * No evidence of malignancy. RECOMMENDATIONS Bilateral * According to the Tyrer-Cuzick Risk Assessment Model, based on the information provided your patient has a greater than 20% lifetime risk for developing breast cancer. Consider supplemental screening with breast MRI and participation in a high risk screening program. * Annual screening mammography. OVERALL ASSESSMENT CATEGORY BI-RADS-1: Negative. The [employer] recommends annual screening mammography beginning at age 40 for women with average risk of breast cancer. ELECTRONICALLY SIGNED: Patricia Mac M.D. on 10/20/2024 at 10:57:32 PM PT Interpreting Station ID: [id number]
== END ==
PROVIDERS: Family Provider Student in an Organized Health Care Education/Training Program; PCP Student in an Organized Health Care Education/Training Program; Referring Provider Student in an Organized Health Care Education/Training Program; Visit Provider Student in an Organized Health Care Education/Training Program
DX: Z12.31 Encounter for screening mammogram for malignant neoplasm of breast (principal); Z80.3 Family history of malignant neoplasm of breast; R92.333 Mammographic heterogeneous density, bilateral breasts; M50.322 Other cervical disc degeneration at C5-C6 level; M48.02 Spinal stenosis, cervical region; R20.0 Anesthesia of skin; R20.2 Paresthesia of skin
CPT/HCPCS: 72156; 77063; 77067; 99214; A9579

== ENCOUNTER → 2024-11-16 10:28 | Outpatient (CLI) | payer MEDICARE, MEDICAID, SELFPAY | PROVIDERS: Family Provider Student in an Organized Health Care Education/Training Program; PCP Student in an Organized Health Care Education/Training Program; Referring Provider Student in an Organized Health Care Education/Training Program; Visit Provider Student in an Organized Health Care Education/Training Program | DX: M79.601 Pain in right arm (principal); M79.602 Pain in left arm | CPT/HCPCS: 95886; 95909 ==

== ENCOUNTER → 2025-02-07 09:36 | Outpatient (CLI) | payer MEDICARE, MEDICAID, SELFPAY ==
--- NOTE | 2025-02-07 09:37 | DI.RAD.S_ITS ---
PROCEDURE: XR KNEE LT 1TO2V INDICATIONS: 2V worsening left knee pain TECHNIQUE: 3 views of the knee were acquired. COMPARISON: None. FINDINGS: Bones: There are no osseous abnormalities. Joints: The tibialfemoral and patellofemoral joints are normal in width and alignment without arthritic change. . Small effusion Soft tissues: Normal IMPRESSION: Small effusion Dictated by: Jadon Govea M.D. on 02/08/2025 at 10:04 Approved by: Jadon Govea M.D. on 02/08/2025 at 10:05
== END ==
PROVIDERS: Family Provider Student in an Organized Health Care Education/Training Program; PCP Student in an Organized Health Care Education/Training Program; Referring Provider Student in an Organized Health Care Education/Training Program; Visit Provider Student in an Organized Health Care Education/Training Program
DX: M25.562 Pain in left knee (principal); M25.462 Effusion, left knee; F31.75 Bipolar disorder, in partial remission, most recent episode depressed; F43.10 Post-traumatic stress disorder, unspecified
CPT/HCPCS: 73560; 99214

== ENCOUNTER → 2025-02-16 12:04 | Outpatient (CLI) | payer MEDICARE, MEDICAID, SELFPAY ==
--- NOTE | 2025-02-16 12:05 | DI.MRI.S_ITS ---
PROCEDURE: MR KNEE LT WO CON INDICATIONS: worsening knee pain TECHNIQUE: Noncontrast sagittal PD fast spin echo and T2 fast spin echo with fat saturation, sagittal 3-D FLASH with fat saturation; coronal T1 spin echo and PD fast spin echo with fat saturation, and axial PD fast spin echo with fat saturation through the knee. COMPARISON: [facility], CR, XR KNEE LT 1TO2V, 02/07/2025, 8:43. [facility], MR, MR KNEE RT WO CON, 12/21/2020, 15:05. FINDINGS: Image quality: Excellent. Menisci: In the medial meniscus, there is full-thickness radial tear of the posterior root. There is marked extrusion of the medial meniscus body. The lateral meniscus is unremarkable. Cruciate ligaments: The anterior and posterior cruciate ligaments appear intact. Medial structures: The medial collateral ligament appears intact. The posterior oblique ligament, semimembranosus tendon insertions, oblique popliteal ligament, and meniscocapsular junction appear intact. Visualized portions of the pes anserinus tendons appear normal. No abnormal bursal fluid. Lateral structures: The lateral collateral ligament, long and short heads of the biceps femoris tendon appear intact. The popliteus tendon appears normal; the popliteofibular ligament appears intact. The posterosuperior and anteroinferior popliteomeniscal fascicles appear intact. The arcuate and fabellofibular ligaments appear intact, on either side of the lateral inferior geniculate artery. Iliotibial band appears normal. Anterior structures: The quadriceps and patellar tendons appear intact. Patellar alignment is normal. No femoral trochlear dysplasia or ventral trochlear prominence. No edema in the infrapatellar fat pad. Bones and cartilage: Mild chondrosis of the patellofemoral compartment, with punctate subchondral marrow edema. Mild chondrosis of the medial compartment. The cartilage of the lateral compartment is grossly well maintained. No acute fracture. Joint space: Small knee effusion. No popliteal cyst. Popliteal vasculature is unremarkable. No intra-articular body. IMPRESSION: 1. Full-thickness radial tear of the posterior root of the medial meniscus. 2. Mild chondrosis of the patellofemoral and the medial compartment. Dictated by: Liz Robledo M.D. on 02/16/2025 at 13:47 Approved by: Liz Robledo M.D. on 02/16/2025 at 13:56
== END ==
PROVIDERS: Family Provider Student in an Organized Health Care Education/Training Program; PCP Student in an Organized Health Care Education/Training Program; Referring Provider Student in an Organized Health Care Education/Training Program; Visit Provider Student in an Organized Health Care Education/Training Program
DX: S83.8X2A Sprain of other specified parts of left knee, initial encounter (principal); M22.42 Chondromalacia patellae, left knee; M25.562 Pain in left knee; F31.75 Bipolar disorder, in partial remission, most recent episode depressed; F43.10 Post-traumatic stress disorder, unspecified
CPT/HCPCS: 73721; 99214

== ENCOUNTER 2025-05-03 13:00 | Outpatient (RCR) | payer MEDICARE, MEDICAID, SELFPAY ==
--- NOTE | 2025-04-27 16:25 | OT.OPPOC ---
Physical, Occupational & Speech Therapy At [facility] Rosey Saenz [id number] Visit Care Team Role Provider Type Malu Lowe MD Family Provider Physician Primary Care Provider Address: [address] [place] [address], [id number] Vikram Little MD Attending Provider Physician Referring Provider Address: [address] [place] [address], [id number] Occupational Therapy Plan of Care OT Outpatient Adult Evaluation Start: 04/26/25 17:01 Freq: Status: Active Protocol: Document 04/27/25 13:00 (Rec: 04/26/25 17:05 [id number]) General Information - Adult Visit Information Visit Number 1 of 24 Plan of Care Dates 04/26/25-07/20/25 Insurance no pre-auth;no copay;$257 deductible satisfied;no visit Information limit pcy Session Time Visit Start Date 04/27/25 Visit Start Time 13:00 Visit Stop Time 13:45 Setting Treatment Setting Outpatient Care Visit Type Note Type Initial Evaluation Referral Referring Physician Dr. Vikram Little Reason for Referral bilateral CMC arthritis Identification Identification Yes Confirmed Identification EMR Confirmed By Social Information Social History It hurts a lot when it gets cold or pressure changes but it comes and goes Patient Questionnaires Quick Dash- Upper Extremity Quick Dash UE Score 25 Quick Dash UE 20 to 39% Impaired (Score 20-39) Impairment Quick Dash- Work and Sports Modules Quick Dash W&S Score W: 0 Quick Dash Work and 0% Impaired (Score 0) Sport Impairment Goals Objective Measurements Objective Lamp Shade Sewer Strength: Measurements R: (Average 63lb: 59,65,65lb ) L: (Average 68lb: 75, 65,65lb) 3-Jaw Elsie Pinch: R: (Average 16lb: 13,13,14lb); L: (Average 12lb: 10,11 ,14lb ) Lateral Pinch: R: (Average 15lb: 15,15,15lb); L: (16, 15, 15lb) Treatment Treatment Standardized testing included exhibit preparator and pinch strength as well as the QuickDASH, with current score at 25 indicating moderate functional limitations. Lamp Shade Sewer strength averaged R: 63 lb and L: 68 lb. Pinch strength testing demonstrated R: 13 lb and L: 12 lb for 3-jaw elsie pinch, and R: 15 lb and L: 15 lb for lateral pinch. Patient reports pain fluctuations with cold weather and barometric pressure changes, ranging from 3 /10 at best to 6?7/10 at worst, most often greater in the right hand. She notes that painting, an activity she engages in for extended periods, does not cause pain during performance but can increase soreness afterward. She also reports use of meloxicam and Tylenol for symptom management but denies prior knowledge or use of thermal modalities. She ambulates with a single-point cane due to a recent meniscal tear, though she does not feel cane use exacerbates her hand pain. Education today included discussion of the basic pathology of CMC arthritis, principles of joint protection, and the role of occupational therapy in symptom management and functional jewish. Patient was introduced to conservative management strategies including home exercise program review, activity modification principles, and education on the potential role of thermal modalities for pain management. She verbalized understanding of all teaching and expressed eagerness to learn how to monitor and manage flareups in order to prevent or reduce exacerbations. Short Term Goals Short Term Goals (within 4 weeks): 1. Patient will independently demonstrate use of at least one thermal modality (heat or cold) for self- management of pain and report perceived effectiveness during flareups. 2. Patient will verbalize and demonstrate at least three joint protection strategies to be applied during painting and daily activities. 3. Patient will complete her prescribed home exercise program 4 days per week as reported, with therapist review showing accurate technique and adherence. 4. Patient will reduce reported worst pain during flareups from current 6?7/10 to no greater than 5/10 through use of pacing, joint protection, and pain management strategies. Roadway Engineer Goals Halfway Goals (within 12 weeks): 1. Patient will report ability to complete painting and computer-based art tasks for up to 2 hours with no more than 3/10 pain at task completion. 2. Patient will increase right hand exhibit preparator strength by at least 5 lb and demonstrate improved symmetry of pinch strength bilaterally to within 2 lb difference. 3. Patient will demonstrate independence with all aspects of her home program, including strengthening, joint protection, and use of modalities, with verbalized confidence in managing flareups. 4. Patient will reduce QuickDASH score from 25 to 10 or below, indicating improved overall functional ability and decreased disability related to hand use. 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 She was previously evaluated in December 2023 with significant pain (9/10), impaired exhibit preparator/pinch strength compared to age-based norms, and high QuickDASH scores (40.91). She discontinued therapy prematurely due to scheduling conflicts rather than goal achievement. At today?s reassessment with a new referral, she demonstrates improved exhibit preparator and pinch strength and decreased QuickDASH score, indicating progress since initial evaluation. However, pain continues to limit her participation in valued leisure and daily activities, with flareups triggered most notably by weather and environmental changes rather than clear activity overuse. She continues to experience pain ranging up to 6?7/10, most pronounced in her right/dominant hand. Given her current functional status, she demonstrates a need for skilled OT services to address activity tolerance, pain management strategies, joint protection techniques, and strengthening of the intrinsic and extrinsic hand musculature. Therapy will also focus on education regarding thermal modalities, ergonomic adaptations, and pacing strategies to improve her independence and participation in meaningful occupations such as painting and computer-based art. With her motivation and expressed eagerness to learn self-management techniques, prognosis for improvement is good with consistent participation. Reviewed with Goals,Progress Being Made,Home Exercise Program Patient Patient Good Understanding Plan Length of treatment 12 (weeks) Plan of Care Start 04/27/25 Date Plan of Care End 07/20/25 Date Comment 1-2x/week PRN Treatment Frequency Twice a Week Treatment Duration 45 Minutes Therapeutic Contents Active Range of Motion,Adaptive Equipment Education, Client Education,Functional Activities,Home Exercise Program,Joint Protection,Manual Therapy,Education,Self- Care,Therapeutic Activities,Therapeutic Exercises, Modalities Modalities As Needed Types of Modalities Ice Massage,Other Additional Types of MHP, paraffin Modalities Patient Instruction Home Exercise Program,Plan of Care,Questions/Concerns Patient Continue with Current Program Recommendations Electronically Signed by: Ely Mcgarry OT 04/27/25 1625 If you are in agreement with this Plan of Care, please return a signed and dated copy. I have reviewed this Plan of Care and certify that the skilled therapy services above are required to meet the patient?s needs. Physician Signature Date Printed Name and Credentials Clinical Instructor Signature Printed Name and Credentials
--- NOTE | 2025-05-03 14:21 | OT.OP.TRT ---
Visit Care Team Role Provider Type Malu Lowe MD Family Provider Physician Primary Care Provider Specialty: Family Practice Obstetrics Address: [address] [place], [address] Email: [email or web address] Vikram Little MD Attending Provider Physician Referring Provider Specialty: Orthopedic Surgery Address: [address] [place] [address], [id number] Email: [email or web address] Occupational Therapy Treatment Note OT Outpatient Treatment Note - Adult Start: 04/26/25 17:01 Freq: Status: Active Protocol: Document 05/03/25 13:00 (Rec: 05/02/25 17:02 [id number]) OT Outpatient Adult Treatment Note Session Time Visit Start Date 05/03/25 Visit Start Time 13:00 Visit Stop Time 13:45 Visit Information Visit Number 1 of 24 Plan of Care Dates 04/26/25-07/20/25 Insurance no pre-auth;no copay;$257 deductible satisfied;no visit Information limit Setting Treatment Setting Outpatient Care Visit Type Note Type Treatment Note - Subjective Identification Type Name Identification Medical Record Reconciled With Observations I was reviewing some of the information you shared with me last visit and it has been so helpful - Objective Short Term Goals (within 4 weeks): 1. Patient will independently demonstrate use of at least one thermal modality (heat or cold) for self- management of pain and report perceived effectiveness during flareups. 2. Patient will verbalize and demonstrate at least three joint protection strategies to be applied during painting and daily activities. 3. Patient will complete her prescribed home exercise program 4 days per week as reported, with therapist review showing accurate technique and adherence. 4. Patient will reduce reported worst pain during flareups from current 6?7/10 to no greater than 5/10 through use of pacing, joint protection, and pain management strategies. Half-Way Goals (within 12 weeks): 1. Patient will report ability to complete painting and computer-based art tasks for up to 2 hours with no more than 3/10 pain at task completion. 2. Patient will increase right hand development mgr strength by at least 5 lb and demonstrate improved symmetry of pinch strength bilaterally to within 2 lb difference. 3. Patient will demonstrate independence with all aspects of her home program, including strengthening, joint protection, and use of modalities, with verbalized confidence in managing flareups. 4. Patient will reduce QuickDASH score from 25 to 10 or below, indicating improved overall functional ability and decreased disability related to hand use. - Treatment 1 Descriptor Education was provided on the underlying anatomy and pathology of CMC arthritis and its impact on thumb stability, joint loading, and pain. The session emphasized conservative management strategies including the use of heat prior to exercise or activity to improve tissue elasticity and decrease pain, as well as the use of adaptive and ergonomic tools such as built- up utensils, under-cabinet jar openers, and wider- handled items to minimize strain on the thumb joints. Joint protection strategies were discussed, including techniques for offloading stress to the forearms during daily activities and identifying ways to reduce repetitive pinch or sustained grasp patterns. Patient was encouraged to wear braces as often as tolerated/ feasible until symptoms improve. The initial home exercise program was introduced, consisting of 1 set of 10 repetitions each of thumb extension/flexion, thumb abduction/adduction, finger extension/flexion, and thumb opposition exercises. Patient reported pain during thumb abduction/adduction and was educated on modifying repetitions and intensity to remain within the pain-free range. Instruction was also provided on gentle webspace massage and stretching using clips to apply light pressure, as an alternative to pinching with the opposite hand to avoid irritation . Education was given on starting with low intensity (1 set of 5?10 repetitions daily) and progressing gradually once exercises can be performed without pain. Patient required maximal verbal and visual cues to complete return demonstration with proper form but verbalized understanding of all education provided and expressed motivation to continue independently. Visual Cues Max Cues Verbal Cues Max Cues Tolerance Good - Assessment Patient Response to Good Treatment Rehabilitation Good Potential Impairments Coordination/Dexterity,Functional Activities,Motor Identified Function,Pain,Weakness,Recreational Activities, Meaningful Activities Progress Towards Good Progress Goals Assessment of Improving Overall Progress Assessment of Patient presents with ongoing bilateral hand pain, Improvement right greater than left, secondary to CMC arthritis, which continues to impact her ability to perform daily and leisure activities such as painting and computer- based activities. She demonstrates good insight and engagement during education but requires significant cueing for motor learning and correct exercise performance. Pain behaviors were noted during resisted abduction/adduction and composite fist, consistent with joint irritation and instability at the CMC joint. Patient demonstrated good comprehension of education regarding pathology, adaptive techniques, and pacing strategies to prevent symptom exacerbation. Continued skilled OT intervention is indicated to reinforce joint protection techniques, support proper exercise progression, and enhance independence with use of adaptive devices and activity modification. Ongoing focus will be placed on improving hand strength, reducing pain, and increasing tolerance for meaningful activities through a combination of therapeutic exercise, manual techniques, and education on self- management strategies. Patient is making appropriate progress toward goals and remains highly motivated to manage symptoms and prevent flareups independently. Home Exercise initiated thumb extension/flexion, thumb abduction/ Program adduction, finger extension/flexion, thumb opposition, webspace massage/stretching Reviewed with Goals,Progress Being Made,Home Exercise Program Patient/Caregiver Patient/Caregiver Good Understanding - Plan Therapy Continue with Current Program Recommendations Amount of Therapy 2-3 Months Recommended Comment 1-2x/week PRN Frequency of Twice a Week Treatment Length of Session 45 Minutes Treatment Emphasis review HEP/adaptive equipment, trial ktape Next Session Therapeutic Contents Active Range of Motion,Adaptive Equipment Education, Client Education,Functional Activities,Home Exercise Program,Joint Protection,Education,Orthotic Fitting & Training,Self-Care,Stretching/Flexibility Activities, Therapeutic Activities,Therapeutic Exercises,Modalities Modalities As Needed Types of Modalities Ice Massage,Other Additional Types of MHP, paraffin Modalities
--- NOTE | 2025-05-22 10:41 | OT.OP.DC ---
Visit Care Team Role Provider Type Malu Lowe MD Family Provider Physician Primary Care Provider Address: [address] [place] [address], [id number] Email: [email or web address] Vikram Little MD Attending Provider Physician Referring Provider Address: [address] [place] [address], [id number] Email: [email or web address] Outpatient OT Outpatient Adult Evaluation Start: 04/26/25 17:01 Freq: Status: Active Protocol: Document 04/27/25 13:00 (Rec: 04/26/25 17:05 [id number]) General Information - Adult Visit Information Visit Number Plan of Care Dates 04/26/25-07/20/25 Insurance no pre-auth;no copay;$257 deductible satisfied;no visit Information limit pcy Session Time Visit Start Date 04/27/25 Visit Start Time 13:00 Visit Stop Time 13:45 Setting Treatment Setting Outpatient Care Visit Type Note Type Initial Evaluation Referral Referring Physician Dr. 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 Aeronautics Teacher strength averaged R: 63 lb and L: 68 lb. Pinch strength testing demonstrated R: 13 lb and L: 12 lb for 3-jaw elsie pinch, and R: 15 lb and L: 15 lb for lateral pinch. Patient reports pain fluctuations with cold weather and barometric pressure changes, ranging from 3 /10 at best to 6?7/10 at worst, most often greater in the right hand. She notes that painting, an activity she engages in for extended periods, does not cause pain during performance but can increase soreness afterward. She also reports use of meloxicam and Tylenol for symptom management but denies prior knowledge or use of thermal modalities. She ambulates with a single-point cane due to a recent meniscal tear, though she does not feel cane use exacerbates her hand pain. Education today included discussion of the basic pathology of CMC arthritis, principles of joint protection, and the role of occupational therapy in symptom management and functional presybeterian. Patient was introduced to conservative management strategies including home exercise program review, activity modification principles, and education on the potential role of thermal modalities for pain management. She verbalized understanding of all teaching and expressed eagerness to learn how to monitor and manage flareups in order to prevent or reduce exacerbations. Short Term Goals Short Term Goals (within 4 weeks): 1. Patient will independently demonstrate use of at least one thermal modality (heat or cold) for self- management of pain and report perceived effectiveness during flareups. 2. Patient will verbalize and demonstrate at least three joint protection strategies to be applied during painting and daily activities. 3. Patient will complete her prescribed home exercise program 4 days per week as reported, with therapist review showing accurate technique and adherence. 4. Patient will reduce reported worst pain during flareups from current 6?7/10 to no greater than 5/10 through use of pacing, joint protection, and pain management strategies. Alf Goals Alf Goals (within 12 weeks): 1. Patient will report ability to complete painting and computer-based art tasks for up to 2 hours with no more than 3/10 pain at task completion. 2. Patient will increase right hand palletiser operator strength by at least 5 lb and demonstrate improved symmetry of pinch strength bilaterally to within 2 lb difference. 3. Patient will demonstrate independence with all aspects of her home program, including strengthening, joint protection, and use of modalities, with verbalized confidence in managing flareups. 4. Patient will reduce QuickDASH score from 25 to 10 or below, indicating improved overall functional ability and decreased disability related to hand use. 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 She was previously evaluated in December 2023 with significant pain (9/10), impaired palletiser operator/pinch strength compared to age-based norms, and high QuickDASH scores (40.91). She discontinued therapy prematurely due to scheduling conflicts rather than goal achievement. At today?s reassessment with a new referral, she demonstrates improved palletiser operator and pinch strength and decreased QuickDASH score, indicating progress since initial evaluation. However, pain continues to limit her participation in valued leisure and daily activities, with flareups triggered most notably by weather and environmental changes rather than clear activity overuse. She continues to experience pain ranging up to 6?7/10, most pronounced in her right/dominant hand. Given her current functional status, she demonstrates a need for skilled OT services to address activity tolerance, pain management strategies, joint protection techniques, and strengthening of the intrinsic and extrinsic hand musculature. Therapy will also focus on education regarding thermal modalities, ergonomic adaptations, and pacing strategies to improve her independence and participation in meaningful occupations such as painting and computer-based art. With her motivation and expressed eagerness to learn self-management techniques, prognosis for improvement is good with consistent participation. Reviewed with Goals,Progress Being Made,Home Exercise Program Patient Patient Good Understanding Plan Length of treatment 12 (weeks) Plan of Care Start 04/27/25 Date Plan of Care End 07/20/25 Date Comment 1-2x/week PRN Treatment Frequency Twice a Week Treatment Duration 45 Minutes Therapeutic Contents Active Range of Motion,Adaptive Equipment Education, Client Education,Functional Activities,Home Exercise Program,Joint Protection,Manual Therapy,Education,Self- Care,Therapeutic Activities,Therapeutic Exercises, Modalities Modalities As Needed Types of Modalities Ice Massage,Other Additional Types of MHP, paraffin Modalities Patient Instruction Home Exercise Program,Plan of Care,Questions/Concerns Patient Continue with Current Program Recommendations Functional Wrist/Hand Scan Hand Side Sensory Assessment Sensory Profile2 OT Outpatient Treatment Note - Adult Start: 04/26/25 17:01 Freq: Status: Active Protocol: Document 05/22/25 10:31 (Rec: 05/22/25 10:41 [id number]) OT Outpatient Adult Treatment Note Visit Information Plan of Care Dates 04/26/25-07/20/25 Insurance no pre-auth;no copay;$257 deductible satisfied;no visit Information limit Setting Treatment Setting Outpatient Care Visit Type Note Type Discharge Summary General Information General Information Per schedulers, pt underwent recent knee surgery with change in medical status and pt requesting discharge. - - Objective Short Term Goals (within 4 weeks): 1. Patient will independently demonstrate use of at least one thermal modality (heat or cold) for self- management of pain and report perceived effectiveness during flareups. [NOT MET 05/22/25] 2. Patient will verbalize and demonstrate at least three joint protection strategies to be applied during painting and daily activities. [NOT MET 05/22/25] 3. Patient will complete her prescribed home exercise program 4 days per week as reported, with therapist review showing accurate technique and adherence. [NOT MET 05/22/25] 4. Patient will reduce reported worst pain during flareups from current 6?7/10 to no greater than 5/10 through use of pacing, joint protection, and pain management strategies. 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 Patient will report ability to complete painting and computer-based art tasks for up to 2 hours with no more than 3/10 pain at task completion. [NOT MET ] 2. Patient will increase right hand palletiser operator strength by at least 5 lb and demonstrate improved symmetry of pinch strength bilaterally to within 2 lb difference. [NOT MET 05/22/25] 3. Patient will demonstrate independence with all aspects of her home program, including strengthening, joint protection, and use of modalities, with verbalized confidence in managing flareups. [NOT MET ] 4. Patient will reduce QuickDASH score from 25 to 10 or below, indicating improved overall functional ability and decreased disability related to hand use. [NOT MET 05/22/25] - - Assessment Patient Response to Good Treatment Rehabilitation Good Potential Impairments Coordination/Dexterity,Functional Activities,Motor Identified Function,Pain,Weakness,Recreational Activities, Meaningful Activities Progress Towards Delayed Progress Goals Assessment of Unchanged Overall Progress Assessment of Patient is a 48-year-old right-hand dominant female who Improvement was referred to outpatient occupational therapy for evaluation and treatment of bilateral hand pain secondary to CMC arthritis, with symptoms greater in the right hand. At initial evaluation, patient presented with pain ranging from 3/10 at best to 6?7/10 at worst, most notably aggravated by cold weather and barometric pressure changes. She reported functional limitations in grasping, gripping, and sustaining prolonged fine motor activity, particularly during painting and computer-based art. Objective testing demonstrated decreased bilateral palletiser operator and pinch strength compared to age-matched norms, with QuickDASH score of 25 indicating moderate functional impairment. Deficits were noted in hand strength, activity tolerance, and knowledge of joint protection and pain management techniques. Following evaluation, the patient attended one follow- up treatment visit focused on education regarding the pathology and management of CMC arthritis, introduction to thermal modalities, adaptive equipment recommendations, and instruction in a graded home exercise program for thumb and hand strengthening. She demonstrated good engagement and understanding of education provided but required significant verbal and visual cueing for proper exercise performance. Per schedulers, patient has since undergone knee surgery resulting in a change in medical status, and she has been primarily using a wheelchair for mobility. Patient has requested discharge from OT services at this time due to current medical circumstances. As she was only seen for an evaluation and one treatment session, she has not completed a full course of care, and none of her therapeutic goals were met. Patient would continue to benefit from skilled occupational therapy to address hand strength, pain management, and joint protection education once medically appropriate and is encouraged to request a new referral for continuation of services when able. Home Exercise initiated thumb extension/flexion, thumb abduction/ Program adduction, finger extension/flexion, thumb opposition, webspace massage/stretching - Plan Therapy Discharge from Occupational Therapy Recommendations Amount of Therapy No Further Therapy Recommended Frequency of No Further Therapy Treatment Therapeutic Contents Active Range of Motion,Adaptive Equipment Education, Client Education,Functional Activities,Home Exercise Program,Joint Protection,Education,Orthotic Fitting & Training,Self-Care,Stretching/Flexibility Activities, Therapeutic Activities,Therapeutic Exercises,Modalities
== END 2025-05-23 09:44 | disposition home or self-care (01) ==
LOC: OT 13:00
PROVIDERS: Family Provider Student in an Organized Health Care Education/Training Program; PCP Student in an Organized Health Care Education/Training Program; Referring Provider Orthopaedic Surgery; Visit Provider Orthopaedic Surgery
DX: M18.0 Bilateral primary osteoarthritis of first carpometacarpal joints (principal)
CPT/HCPCS: 97165; 97530

== ENCOUNTER 2025-05-09 07:16 | Day surgery (SDC) | payer MEDICARE, MEDICAID, SELFPAY ==
[2025-05-02 09:22] VITALS: BMI 45.1
[2025-05-09 07:47] VITALS: BP 121/63; PULSE 99; RESP 14; TEMP 36.1; O2SAT 99
[2025-05-09] MEDS: LACTATED RINGERS 1,000 ML 42 ML IV ×2 (08:14→10:10)
[2025-05-09] MEDS: SCOPOLAMINE 1 PATCH TOP (08:15)
--- NOTE | 2025-05-09 08:17 | PM.PREOP ---
Pre-operative Note Interval Note History & Physical reviewed/Exam performed by Physician: Yes Changes to H&P: No
--- NOTE | 2025-05-09 09:02 | SUR.OPER ---
Supine on padded OR bed, head on pillow, arms secured on padded arm boards at <90 degrees abduction, legs uncrossed, safety belt at abdomen, tape over blanket over lower right leg. Lateral post secured to bed at left thigh
[2025-05-09] MEDS: EPINEPHrine 1 MG/ML IRR ×3 (09:43→09:58)
--- NOTE | 2025-05-09 10:36 | PM.OP.1 ---
Operative Date/Time/Diagnoses Date of procedure: 05/09/25 Time of procedure: 08:45 Pre-op diagnosis: Left Knee Meniscal Root Repair, Lateral meniscal debridement, chondroplasty, and microfracture Post-op diagnosis: same Procedure & Clinicians Procedure: Left Knee Medial Mensical Root Repair, lateral mensicus debridement, chondroplasty and microfracture Same procedure(s) as scheduled: Yes Surgeon: Vikram Little Assisted?: Yes Pediatric Physical Therapy Assistant: Heidy Pena Anesthesia Type: General Operative Notes Findings: Medial Meniscal root tear and lateral meniscal tear. [id number] full thickness chondromalacia of the medial femoral condyle Closure Type: primary Specimen(s): none sent Applied: none Estimated Blood Loss (mL): 20 Blood products transfused: none Tourniquet time (min): 84 Procedure in detail: Date of Operation: MAY 09, 2025 Preoperative diagnosis: LEFT KNEE MEDIAL Meniscal Root Tear Procedure performed: Left knee medial Meniscal Root Repair; lateral meniscus debridement; microfracture and chondroplasty Postoperative diagnosis: Left knee medial Meniscal Root Tear, lateral meniscus tear, 4 x 6 mm full-thickness chondral loss on the medial femoral condyle, 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 They assisted with room set up, patient positioning, draping, retraction, reduction, fixation and closure. They were essential for the success of the case. Anesthesia: General EBL: 20 ml Tourniquet: 88 minutes @ 250 mmHg Implants: Arthrex FiberLink x2, Arthrex SwiveLock 4.75 in the tibia Indication For Surgery: Patient presents to the orthopedic clinic with knee pain and mechanical symptoms. They have failed non-operative treatment and want to move forward with operative management. The risks, benefits, and alternatives were discussed. Risks include pain, bleeding, infection, damage to nearby structures and cartilage, lack of symptom relief, need for further surgery, DVT, PE, stroke, and . Written consent was obtained. Examination Under Anesthesia: ROM equal to the contralateral side. Normal Melania & pivot shift Stable to varus and valgus stressing at 0 & 30 degrees. Stable dial at 30 & 90 degrees. No mechanical sensations Diagnostic Arthroscopy: Loose bodies: None Synovium: Synovitis and large medial plica Patella cartilage: Grade 2 chondromalacia Trochlear cartilage: Grade 2 chondromalacia Medial femoral condyle cartilage: Full-thickness chondral loss in a 4 x 6 mm lesion Medial tibial plateau cartilage: Grade 2 chondromalacia Medial meniscus: Full-thickness radial tear through the meniscal root approximately 8 mm medial to the insertion ACL: Intact PCL: Intact Lateral femoral condyle cartilage: Grade 2 chondromalacia Lateral tibial plateau cartilage: Grade 2 chondromalacia Lateral meniscus: Meniscal tear that extended into the root however the root remained stable. Procedure in Detail: The patient was met in the pre-operative hold area. Consent was verified and operative extremity was signed. The patient then met with anesthesia and was brought back to the operating room. The patient was placed supine on the operating table. A general anesthetic and IV antibiotics were administered. A well-padded tourniquet was placed on the thigh. The lower extremity was then prepped and draped in the usual sterile fashion. A timeout was performed per protocol. All were in agreement and we proceeded. The Esmarch was used to exsanguinate the limb and the tourniquet was elevated. An 11 blade scalpel was used to make an anterolateral arthroscopic portal. The arthroscope was introduced into the knee and the anteromedial portal was created under direct visualization using needle localization. A diagnostic arthroscopy was performed with the above-stated findings. I then proceeded to debride around the medial meniscus root to ensure that we had good visibility and mobility of the root itself. The meniscal tear was rasped with a meniscal rasp. We ensured that there was mobility to the meniscus and could reach the initial root site. Using a meniscal scorpion we were able to throw two fiber links through the stump of the root tear. Tugging on the sutures we estimated where the new route we will be located. We then removed the cartilage at that site and created a bleeding bed of bone. Utilizing a guide for the root repair we estimated where an incision along the tibia needed to be located. Came sharply through the skin and bluntly dissected down to the tibial cortex. We then placed our guide so that it would exit at the new root site. We then used a flip cutter to come up through the bone. We inspected the location were happy with the location and ensured that we would get good reduction of the meniscal root tear. The flip cutter was then opened and reamed back approximately 10 mm. A suture Passer was then passed up through the tibial tunnel and the 2 FiberLink sutures were then passed down through the tibia itself. We then inspected where the reduction would be with tugging on the sutures. The knee was then held at 30? the meniscal root was reduced and we secured it to the tibia utilizing a SwiveLock. We then placed the arthroscopy back into the knee and ensured that we had good reduction. The repair was tested with a probe. It remained stable. We conducted debridement of the loose chondromalacia in the lateral and medial compartment. We also excised the plica. Utilizing an awl we micro fractured her medial femoral condyle full-thickness lesion. The portals were closed with 3-0 nylon. The tibial incision was closed with 2-0 Vicryl and 3-0 nylon. Local anesthetic was placed. A sterile dressing was applied and she was placed in a knee range motion brace locked out in extension. The patient was awakened and transferred to the recovery room in stable condition. Postoperative Plan: Same day discharge Non Weight Bearing Keep leg locked in extension ASA to start POD1. ASA for DVT prophylaxis for 4 weeks Remove dressing in [address] bandaids Physical therapy to start after surgery Do not submerge wound until 4 weeks Follow up at 2 weeks for suture removal. Vikram Little MD Complications: none Post-operative Condition: stable Disposition: PACU
[2025-05-09 10:45] VITALS: BP 162/90; PULSE 104; RESP 16; TEMP 36.3; O2SAT 100
[2025-05-09] MEDS: hydrOXYzine 50 MG/ML INJ 25 MG IM (10:53)
[2025-05-09] MEDS: ONDANSETRON 4 MG/2 ML INJ IV (10:54)
[2025-05-09] MEDS: METOCLOPRAMIDE 10 MG/2 ML INJ IV ×2 (10:54→10:59)
[2025-05-09 11:01] VITALS: BP 145/85; PULSE 102; RESP 12; TEMP 36.3; O2SAT 100
[2025-05-09 11:41] VITALS: BP 131/87; PULSE 100; RESP 22; O2SAT 100
--- NOTE | 2025-05-09 11:56 | SUR.PHASEII ---
Pt nonweightbearing status; states she is unable to care for herself at home and that a w/c won't fit in my apartment, intractible nausea despite multiple meds; awaiting Omid to consult, awaiting [facility] to request possible inpatient admission. Pt attempted to void on a bedpan but was unable, did insist on going to bathroom so she was assisted x 2 into w/c and brought to bathroom where she is currently voiding very slowly; pt aware she is not to stand up or transfer at this time without assist.
[2025-05-09 12:54] VITALS: BP 168/86; PULSE 109; RESP 12; O2SAT 100
--- NOTE | 2025-05-09 15:19 | PT.IIE ---
Current Diagnoses Other tear of medial meniscus, current injury, left knee, initial encounter (05/09/25) Surgery Performed Operation Date: 05/09/25 08:45 Actual Procedures p Arthroscopy Knee with medial Meniscus Root Repair, lateral meniscus debridement, chondroplasty, and microfracture(Left) - Vikram Little MD Surgical History (Last Reviewed 08/23/24 @ 13:43 by Baylee Gray DO) Anesthesia Status post cholecystectomy (2009) Medical History (Last Updated 09/19/24 @ 12:21 by Patricio Giles DO) Abnormal Pap smear of cervix (2009) Anxiety (1998) Bipolar I disorder, current or most recent episode depressed, in partial remission with mixed features Chicken pox (1984) Chronic back pain (1999) Foot pain (2014) High-functioning autism spectrum disorder History of heavy periods (2016) History of recurrent ear infection (1999) History of suicide attempt HPV (human papilloma virus) infection (2009) IBS (irritable bowel syndrome) (1998) Irregular periods/menstrual cycles (2016) PTSD (post-traumatic stress disorder) Schizoaffective disorder, bipolar type Therapeutic drug monitoring Physical Therapy Inpatient Evaluation/Re-Eval M1 PT/OT-IP Prior Functional Status Start: 05/09/25 15:11 Freq: NEEDED Status: Active Protocol: Document 05/09/25 15:12 KJ (Rec: 05/09/25 15:19 KJ [id number]) Medical Review Prior Functional Status Medical History Yes Reviewed Mobility and Gait Ambulated without AD. Prior Functional Lives alone but has assistance. Level (Other details ) Social History Household Members none Living Arrangements Apartment/Condo Number of Floors ( One Floor Floors) Number of Stairs To elevator Enter/Railing? Home Equipment Front Wheel Walker,Four Wheel Walker M2 PT-IP Current Condition Start: 05/09/25 15:11 Freq: NEEDED Status: Active Protocol: Document 05/09/25 15:12 KJ (Rec: 05/09/25 15:19 KJ [id number]) Physical Therapy Current Condition Current Condition Evaluation Date 05/09/25 Treatment Diagnosis impaired mobility s/p meniscal repair M3 PT-IP Subjective Start: 05/09/25 15:11 Freq: NEEDED Status: Active Protocol: Document 05/09/25 15:12 KJ (Rec: 05/09/25 15:19 KJ [id number]) Subjective Physical Therapy Visit Type Type Initial Evaluation Visit Start Time 14:03 Visit Stop Time 14:46 Physical Therapy Visit Comments Patient Comments feels a little off due to percocet Patient Goals to go home Therapy Pain Assessment Pain When Pain Assessed At Rest Pain Present Pain Present Pain Reported Location left knee Scale Used reports minimal pain Pain Management Apply Cold,Elevation Techniques M4 PT-IP Mobility and Gait Start: 05/09/25 15:11 Freq: NEEDED Status: Active Protocol: Document 05/09/25 15:12 KJ (Rec: 05/09/25 15:19 KJ [id number]) PT-Transfer Assessment Sit to and From Stand Sit to and from Contact Guard Assistance Stand Equipment Transfer Assistive Gait Belt,Front Wheeled Walker Device Orthotic/Prosthetic Yes Devices or Brace: Transfers Transfer Destination Toilet Transfer Technique Forward/Backward Scoot Transfer Ability Level of Assist Contact Guard Assistance Comments Mobility Comments steady without loss of balance Gait Assessment Gait Gait Assistance Contact Guard Assist Required: Distance (Feet) 10 Able to Maintain Yes Weight Bearing Status During Gait Assistive Devices Assistive Device Gait Belt,Front Wheeled Walker Orthotic/Prosthetic Yes Devices or Brace: Gait Deviations General Gait Pattern Decreased Stride Length Comments Gait Comments Ambulation is steady without loss of balance. Cuing required for safety. PT-Balance Assessment Sitting Balance and Reactions Static Sitting Normal Balance Ability Dynamic Sitting Normal Balance Ability Standing Balance and Reactions Static Standing Good Balance Ability Dynamic Standing Good Balance Ability M5 PT-IP Objective Assessments Start: 05/09/25 15:11 Freq: NEEDED Status: Active Protocol: Document 05/09/25 15:12 KJ (Rec: 05/09/25 15:19 KJ [id number]) Orientation Orientation/Cognition Level of Alertness Alert Orientation Name,Age,Birthday,Month,Date,Year,Day of Week,Place, Situation Gross Range of Motion Upper Extremity ROM Assessment Within Functional Limits Lower Extremity ROM Assessment Left Impaired Strength Upper Extremity Strength Assessment Within Functional Limits Lower Extremity Strength Assessment Left Impaired M6 PT-IP Treatment Start: 05/09/25 15:11 Freq: NEEDED Status: Active Protocol: Document 05/09/25 15:12 KJ (Rec: 05/09/25 15:19 KJ [id number]) Physical Therapy Treatment Exercises Exercises Ankle Pumps Education Education Provided Precautions,Weight Bearing Status,Safety Other Treatments Other Treatment Instructed pt to move toes and ankles on L foot every Performed hour. Instructed pt on safety during transfers. Discussed non weight bearing status with patient. Instructed pt on proper and safe use of walker. M7 PT-IP Assessment and Plan Start: 05/09/25 15:11 Freq: NEEDED Status: Active Protocol: Document 05/09/25 15:12 KJ (Rec: 05/09/25 15:19 KJ [id number]) PT Summary Assessment and Plan Potential Rehabilitation Excellent Potential Status of Condition Evolving at Evaluation Summary Impairments Pain,Gait,Activity Tolerance Treatment Plan Other Same day surgery; pt going home today. Recommendations and Next Treatment Focus Weight Bearing Status Weight Bearing Non-Weight Bearing Status Recommendations To Nursing Amount of Assist 1 Person Assist Needed Discharge Recommendations PT Discharge Home with 15/02 Assist Available Recommendations Transportation Needs Private Vehicle at Discharge
--- NOTE | 2025-05-09 15:27 | SUR.PHASEII ---
Pt requested percocet prior to d/c; when med brought to pt she then declined stating she was worried it would make it too difficult to get into her home. Percocet returned to [facility]
== END 2025-05-09 15:20 | disposition home or self-care (01) ==
PROVIDERS: Family Provider Student in an Organized Health Care Education/Training Program; PCP Student in an Organized Health Care Education/Training Program; Referring Provider Orthopaedic Surgery; Visit Provider Orthopaedic Surgery
PROC: (CPT 29870; principal; 2025-05-09 08:45)
DX: S83.242A Other tear of medial meniscus, current injury, left knee, initial encounter (principal); M94.262 Chondromalacia, left knee; M67.52 Plica syndrome, left knee; M65.962 Unspecified synovitis and tenosynovitis, left lower leg; Y93.B9 Activity, other involving muscle strengthening exercises
CPT/HCPCS: 29882; G0289; 97110; 97116; 97161; C1713; J0165; J0689; J1100; J1885; J2250; J2405; J2704; J2765; J3010; J3410; J7120

== ENCOUNTER → 2025-07-25 09:41 | Outpatient (CLI) | payer MEDICARE, MEDICAID, SELFPAY | PROVIDERS: Visit Provider Physician Assistant | DX: R30.0 Dysuria (principal) | CPT/HCPCS: 87086 ==